=== PATIENT | male | born 1960 | race Caucasian/White ===

== ENCOUNTER 2016-07-01 05:13 | Emergency (ER) | payer MEDICARE, OTHER ==
[~2016-07-01] VITALS: Ht 170.2 cm; Wt 76.7 kg
[2016-07-01] MEDS ORDERED: [UNRECOGNIZED DRUG - OTHER] PO (05:32)
[2016-07-01 05:45] VITALS: BP 141/90
[2016-07-01] MEDS ORDERED: TRAMADOL HCL50 MG ORAL (06:28)
[2016-07-01] MEDS ORDERED: IBUPROFEN600 MG ORAL (06:28)
[2016-07-01 06:35] VITALS: BP 141/90
--- NOTE | 2016-07-01 22:04 | Emergency Room Report ---
History of Present Illness General Chief Complaint: Pain Source: Patient Present Illness HPI Patient presents with 2 days of R knee pain. He denies any recent trauma. Medial knee. No swelling. No fever or rash. No warmth. No calf tenderness. Pain 8/10, constant, not radiating. He took 800 mg motrin X 2 in past 2 days, last this AM but states minimal help. Patient has had recent falls with head injury. He also was recently (several months ago) treated for an infection in the lower leg (screw into ? tibia). Hospitalized for IV antibiotics. He states x-rays done at that time. Infection has healed and is not tender or bothering him. Review of prior visits reveal R leg pain 2006 (chart unavailable). Supposed to fly to [place] this AM as family are ill there. Allergies: Coded Allergies: No Known Allergies (Unverified , 07/01/16) Patient History Past Medical History: see triage record Social History: Denies: alcohol use, smoking Reviewed Nursing Documentation: PMH: Agreed, PSxH: Agreed Review of Systems All Other Systems: negative except mentioned in HPI Physical Exam Vital Signs Date Time Temp Pulse Resp B/P Pulse Ox O2 Delivery O2 Flow Rate FiO2 07/01/16 05:25 97.3 73 16 141/90 99 Room Air Sp02 EP Interpretation: reviewed, normal General Appearance: well appearing, no apparent distress Head: normocephalic, atraumatic Eyes: bilateral eye PERRL, bilateral eye normal inspection ENT: hearing grossly normal, normal voice Neck: full range of motion, supple Respiratory: no respiratory distress, speaking full sentences Cardiovascular #2: 2+ dorsalis pedis (R) Musculoskeletal: digits/nails normal, gait/station normal, no calf tenderness, decreased range of mation - flexion. Able to stand and sit without difficulty, other - no effusion, + medial meniscus tenderness with minimal laxity. Drawer negative. Applies, slight tenderness medially. Neurologic: alert, grossly normal Psychiatric: mood/affect normal Reflexes: 2+ knee (R), 2+ knee (L) Skin: no rash Medical Decision Making Diagnostic Impression: Primary Impression: Injury of meniscus of knee Qualified Codes: S83.91XA - Sprain of unspecified site of right knee, initial encounter ER Course Patient presents with R knee pain. Ddx: strain, meniscus injury, occult fracture. Xrays indicated and patient will be given tylenol (as driving). Xrays unremarkable. Greg applied - good position/tension with some improvement. Neurovasc normal checked by me. Patient stable for outpatient observation and treatment. Other X-Ray Diagnostic Results Other X-Ray Diagnostic Results : X-Ray Ordered: R knee EP Interpretation: Yes Findings: no fractures, no dislocation, no soft tissue swelling Number of Views: 3 Last Vital Signs Date Time Temp Pulse Resp B/P Pulse Ox O2 Delivery O2 Flow Rate FiO2 07/01/16 06:35 97.3 78 16 141/90 99 Room Air Status: improved Disposition: HOME, SELF-CARE Condition: Improved Scripts Tramadol Hcl* (ULTRAM*) 50 Mg Tablet 50 MG ORAL Q6H Y for For Pain, #6 TAB 0 Refills Prov: Sukh Robledo M.D. 07/01/16 Ibuprofen* (MOTRIN*) 600 Mg Tablet 600 MG ORAL Q6H Y for For Pain, #20 TAB Prov: Sukh Robledo M.D. 07/01/16 Referrals: NON PHYSICIAN (PCP) Patient Instructions: Knee Pain, Meniscus Injury, RICE for Routine Care of Injuries Additional Instructions: You might need an MRI. Physical therapy can help. OK to take tylenol also. You cannot fly in an airplane today. Sukh Robledo M.D. Jul 01, 2016 22:04
--- NOTE | 2016-07-02 09:10 | Diagnostic Imaging Report ---
Indication: PAIN Technique: 3 views of the right knee Comparison: None Findings:No acute fractures. No dislocations. There is a small amount of degenerative proliferative change of the patella. Impression:No acute process This agrees with the preliminary interpretation provided by the emergency room physician
== END 2016-07-01 06:35 | disposition home or self-care (01) ==
LOC: EMR 05:39
DX: S83.91XA Sprain of unspecified site of right knee, initial encounter (principal); X58.XXXA Exposure to other specified factors, initial encounter; Y92.9 Unspecified place or not applicable; Y99.8 Other external cause status
CPT/HCPCS: 99284

== ENCOUNTER 2016-10-20 00:06 | Emergency (ER) | payer MEDICARE, OTHER ==
[~2016-10-20] VITALS: Ht 172.7 cm; Wt 74.8 kg
[~2016-10-20 00:06] MED LIST: IBUPROFEN600 MG ORAL; TRAMADOL HCL50 MG ORAL; [UNRECOGNIZED DRUG - OTHER] PO
[2016-10-20 00:20] VITALS: BP 123/59
--- NOTE | 2016-10-20 00:25 | Emergency Room Report ---
History of Present Illness General Chief Complaint: Head Injury Source: Patient Present Illness HPI The patient presents after an injury at 4 PM. He stood in a clost and hit the top of his head on a pipe. He fell down due to the blow at that time. There was no loss of consciousness. He had a severe concussion in January and is concerned because he feels dizzy and somewhat altered at this time. He took Motrin 800 mg before coming to the hospital. Patient is deaf. Patient was seen and Jul 01 for meniscal tear. At that time he described that he had a head injury previously with prolonged post-concussive syndrome. No fevers, NVD. No neck, back or extremity pain. No dysuria. Has to travel again to [place] soon. Stress over family issues. Allergies: Coded Allergies: No Known Allergies (Unverified , 07/01/16) Patient History Past Medical History: see triage record Social History: Denies: smoking Social History Narrative family in [place] Reviewed Nursing Documentation: PMH: Agreed, PSxH: Agreed Review of Systems All Other Systems: negative except mentioned in HPI Physical Exam Vital Signs Date Time Temp Pulse Resp B/P Pulse Ox O2 Delivery O2 Flow Rate FiO2 10/20/16 00:11 98.1 67 16 123/75 97 Room Air Sp02 EP Interpretation: reviewed, normal General Appearance: well appearing, no apparent distress, GCS 15 Head: normocephalic, other - tender top of head Eyes: bilateral eye EOMI, bilateral eye PERRL, bilateral eye normal inspection ENT: moist mucus membranes Neck: full range of motion, supple, no bony tend Respiratory: lungs clear, normal breath sounds Cardiovascular #1: regular rate, rhythm Cardiovascular #2: 2+ radial (R) Gastrointestinal: normal inspection, normal bowel sounds, non tender, no mass, non-distended Musculoskeletal: back normal, gait/station normal, normal range of motion Neurologic: alert, oriented x3, director field services III-XII nml as tested - except for hearning , motor strength/tone normal, DTRs symmetric, sensory intact, cerebellar normal , normal gait, speech normal, other - deaf Psychiatric: mood/affect normal Skin: normal inspection, warm/dry Medical Decision Making Diagnostic Impression: Primary Impression: Acute head injury Qualified Codes: S09.90XA - Unspecified injury of head, initial encounter ER Course The patient presents after head injury. He suffered a fairly significant concussive injury last year in January. His neurologic exam is normal except for deafness which is chronic. CT head is indicated. CT normal. Repeat neuro unchanged. Patient stable for outpatient observation and treatment. CT/MRI/US Diagnostic Results CT/MRI/US Diagnostic Results : Imaging Test Ordered: head Impression nl brain, bones and ST. Last Vital Signs Date Time Temp Pulse Resp B/P Pulse Ox O2 Delivery O2 Flow Rate FiO2 10/20/16 02:25 98.4 61 18 113/70 100 Room Air Status: improved Disposition: HOME, SELF-CARE Condition: Stable Sukh Robledo M.D. October 20, 2016 00:25
[2016-10-20 02:25] VITALS: BP 113/70
--- NOTE | 2016-10-22 09:19 | Diagnostic Imaging Report ---
Indication: Head trauma. Headache Technique: Contiguous 5 mm thick transaxial imaging of the head obtained in a Siemens Sensation [address] scanner. Soft tissue and bone windows generated. Total Dose length Product (DLP): [address] Dose Index Volume (CTDIvol): 70.38 mGy Comparison: none Findings: The size and configuration of the cortical sulci, basal cisterns, and ventricles are within normal limits for age. There is no mass effect, midline shift, or edema identified. There is no evidence of acute hemorrhage or abnormal intra-axial or extra-axial fluid collections. The bones and soft tissues are unremarkable. Impression: No mass effect, edema or acute bleed. The CT scanner at [facility] is accredited by the [employer] and the scans are performed using dose optimization techniques as appropriate to a performed exam including Automatic Exposure control.
== END 2016-10-20 02:25 | disposition home or self-care (01) ==
LOC: EMR 00:40
DX: S09.90XA Unspecified injury of head, initial encounter (principal); W22.8XXA Striking against or struck by other objects, initial encounter; Y93.9 Activity, unspecified; Y99.9 Unspecified external cause status; H91.90 Unspecified hearing loss, unspecified ear
CPT/HCPCS: 70450; 99284

== ENCOUNTER 2016-10-24 16:50 | Emergency (ER) | payer MEDICARE, OTHER ==
[~2016-10-24] VITALS: Ht 172.7 cm; Wt 74.8 kg
[2016-10-24 17:24] VITALS: BP 124/66
[2016-10-24 17:44] LABS: BASOPHILS % (AUTO) 2.5 % (0.0-2.0); EOSINOPHILS % (AUTO) 13.5 % (0.0-3.0); LYMPHOCYTES % (AUTO) 44.9 % (20.0-45.0); MEAN CORPUSCULAR HEMOGLOBIN 32.1 PG (27.0-31.0); MEAN CORPUSCULAR HGB CONC 35.9 G/DL (32.0-36.0); MEAN CORPUSCULAR VOLUME 89 FL (80-99); MEAN PLATELET VOLUME 6.7 FL (6.5-10.1); MONOCYTES % (AUTO) 13.8 % (1.0-10.0); NEUTROPHILS % (AUTO) 25.4 % (45.0-75.0); PLATELET COUNT 249 K/UL (150-450); RED BLOOD COUNT 4.14 M/UL (4.70-6.10); WHITE BLOOD COUNT 5.8 K/UL (4.8-10.8)
[2016-10-24 17:55] LABS: ACETAMINOPHEN < 10 ug/mL (10-30); ALANINE AMINOTRANSFERASE 30 U/L (3-41); ALBUMIN/GLOBULIN RATIO 1.1 (1.0-2.7); ALCOHOL < 10 mg/dL; ANION GAP 16 (5-15); ASPARTATE AMINO TRANSFERASE 33 U/L (5-40); CALCIUM 9.2 mg/dL (8.6-10.2); CARBON DIOXIDE 26 mEQ/L (20-30); CHLORIDE 98 mEQ/L (98-107); CREATININE 0.8 mg/dL (0.7-1.2); GLOMERULAR FILTRATION RATE > 60 mL/min (>60); HEMOLYSIS 3; POTASSIUM 4.1 mEQ/L (3.4-4.9); SODIUM 140 mEQ/L (135-145); TOTAL PROTEIN 7.8 g/dL (6.6-8.7); TROPONIN I < 0.30 ng/mL (<=0.30)
[2016-10-24] MEDS ORDERED: IBUPROFEN600 MG ORAL (18:29)
[2016-10-24 18:46] VITALS: BP 142/83
[2016-10-24 18:50] VITALS: BP 142/83
--- NOTE | 2016-10-25 09:39 | Diagnostic Imaging Report ---
Indication: Altered mental status Technique: Contiguous 5 mm thick transaxial imaging of the head obtained in a Siemens Sensation [address] scanner. Soft tissue and bone windows generated. Total Dose length Product (DLP): [address] Dose Index Volume (CTDIvol): 70.38 mGy Comparison: 10/20/16 Findings: The size and configuration of the cortical sulci, basal cisterns, and ventricles are within normal limits for age. There is no mass effect, midline shift, or edema identified. There is no evidence of acute hemorrhage or abnormal intra-axial or extra-axial fluid collections. The bones and soft tissues are unremarkable. Impression: No mass effect, edema or acute bleed. The CT scanner at [facility] is accredited by the [employer] and the scans are performed using dose optimization techniques as appropriate to a performed exam including Automatic Exposure control.
--- NOTE | 2016-10-25 14:11 | Emergency Room Report ---
History of Present Illness General Chief Complaint: General Complaint Source: Patient, Medical Record Present Illness HPI 56-year-old male presents ED for evaluation. Remained states that patient appears more lethargic than usual x1 day. Noticed some slurred speech today. Patient states the last 3 days his his had multiple times. States that they are moving and during the process of moving his head and multiple objects. No LOC. Patient was seen here a few days ago for similar presentation. Patient also appeared lethargic at the time. Patient had CT head which was unremarkable. Patient denies any drug use. Patient notes history of HIV and states he is compliant with his medications. Denies any photophobia, blurry vision. Denies nausea or vomiting. Denies chest pain or shortness of breath. No other aggravating or relieving factors. Denies any other associated symptoms Allergies: Coded Allergies: No Known Allergies (Unverified , 07/01/16) Patient History Past Medical History: HIV Past Surgical History: none Pertinent Family History: none Social History: Denies: alcohol use, drug use, smoking Immunizations: UTD Reviewed Nursing Documentation: PMH: Agreed, PSxH: Agreed Nursing Documentation-PMH Past Medical History: No History, Except For Review of Systems All Other Systems: negative except mentioned in HPI Physical Exam Vital Signs Date Time Temp Pulse Resp B/P Pulse Ox O2 Delivery O2 Flow Rate FiO2 10/24/16 16:53 98.1 67 17 131/76 98 Room Air Sp02 EP Interpretation: reviewed, normal General Appearance: no apparent distress, alert, GCS 15, non-toxic, lethargic Head: normocephalic, atraumatic Eyes: bilateral eye PERRL, bilateral eye normal inspection ENT: hearing grossly normal, normal pharynx, no angioedema, normal voice Neck: full range of motion, supple/symm/no masses Respiratory: chest non-tender, lungs clear, normal breath sounds, speaking full sentences Cardiovascular #1: regular rate, rhythm, no edema Cardiovascular #2: 2+ carotid (R), 2+ carotid (L), 2+ radial (R), 2+ radial (L) , 2+ dorsalis pedis (R), 2+ dorsalis pedis (L) Gastrointestinal: normal bowel sounds, non tender, soft, non-distended, no guarding, no rebound Rectal: deferred Genitourinary: normal inspection, no CVA tenderness Musculoskeletal: back normal, gait/station normal, normal range of motion, non- tender Neurologic: alert, oriented x3, responsive, motor strength/tone normal, sensory intact, normal gait, speech normal Psychiatric: judgement/insight normal, mood/affect normal, no suicidal/ homicidal ideation, other - lethargic Reflexes: 3+ bicep (R), 3+ bicep (L), 3+ tricep (R), 3+ tricep (L), 3+ knee (R) , 3+ knee (L) Skin: normal color, no rash, warm/dry, well hydrated Lymphatic: no adenopathy Medical Decision Making Diagnostic Impression: Primary Impression: Acute head injury Qualified Codes: S09.90XA - Unspecified injury of head, initial encounter ER Course Hospital Course 56-year-old M presents to ED with altered mental status. slurred speech as per roomate. Multiple head injuries recently Differential diagnoses include: Psychosis, EtOH, drug abuse, concussion, intracranial injury Clinical course patient placed on stretcher. On court monitor. After initial history and physical ordered labs, IV fluids, CT brain. Labs reviewed-electrolytes okay, no leukocytosis, hemoglobin/hematocrit stable, tox panel + for amphetamines CT brain shows no acute pathology Patient has no focal neurological deficits. No evidence suggesting of CVA. Blood pressure normal. Likely postconcussive syndrome given multiple head injuries Reassurance given to the patient i. I feel this is a highly complex case requiring extensive working including EKG/Rhythm strip, Xray/CT/US, Blood/urine lab work, repeat exams while in ED, and administration of strong opiates/narcotics for pain control, admission to hospital or close patient follow up. Diagnosis -acute head injury Stable and discharged to home. Followup with PMD. Return to ED if symptoms recur or worsen Labs Test 10/24/16 17:20 10/24/16 17:25 White Blood Count 5.8 K/UL (4.8-10.8) Red Blood Count 4.14 M/UL (4.70-6.10) Hemoglobin 13.3 G/DL (14.2-18.0) Hematocrit 37.0 % (42.0-52.0) Mean Corpuscular Volume 89 FL (80-99) Mean Corpuscular Hemoglobin 32.1 PG (27.0-31.0) Mean Corpuscular Hemoglobin Concent 35.9 G/DL (32.0-36.0) Red Cell Distribution Width 12.0 % (11.6-14.8) Platelet Count 249 K/UL (150-450) Mean Platelet Volume 6.7 FL (6.5-10.1) Neutrophils (%) (Auto) 25.4 % (45.0-75.0) Lymphocytes (%) (Auto) 44.9 % (20.0-45.0) Monocytes (%) (Auto) 13.8 % (1.0-10.0) Eosinophils (%) (Auto) 13.5 % (0.0-3.0) Basophils (%) (Auto) 2.5 % (0.0-2.0) Sodium Level 140 mEQ/L (135-145) Potassium Level 4.1 mEQ/L (3.4-4.9) Chloride Level 98 mEQ/L (98-107) Carbon Dioxide Level 26 mEQ/L (20-30) Anion Gap 16 (5-15) Blood Urea Nitrogen 17 mg/dL (7-23) Creatinine 0.8 mg/dL (0.7-1.2) Estimat Glomerular Filtration Rate > 60 mL/min (>60) Glucose Level 117 mg/dL (74-106) Calcium Level 9.2 mg/dL (8.6-10.2) Total Bilirubin 0.6 mg/dL (0.0-1.2) Aspartate Amino Transf (AST/SGOT) 33 U/L (5-40) Alanine Aminotransferase (ALT/SGPT) 30 U/L (3-41) Alkaline Phosphatase 63 U/L (40-129) Total Creatine Kinase 242 U/L (38-174) Troponin I < 0.30 ng/mL (<=0.30) Total Protein 7.8 g/dL (6.6-8.7) Albumin 4.2 g/dL (3.5-5.2) Globulin 3.6 g/dL Albumin/Globulin Ratio 1.1 (1.0-2.7) Salicylates Level < 1 mg/dL (10-30) Acetaminophen Level < 10 ug/mL (10-30) Serum Alcohol < 10 mg/dL Urine Opiates Screen Negative (NEGATIVE) Urine Barbiturates Screen Negative (NEGATIVE) Phencyclidine (PCP) Screen Negative (NEGATIVE) Urine Amphetamines Screen Positive (NEGATIVE) Urine Benzodiazepines Screen Negative (NEGATIVE) Urine Cocaine Screen Negative (NEGATIVE) Urine Marijuana (THC) Screen Negative (NEGATIVE) CT/MRI/US Diagnostic Results CT/MRI/US Diagnostic Results : Imaging Test Ordered: CT head Impression no acute process Last Vital Signs Date Time Temp Pulse Resp B/P Pulse Ox O2 Delivery O2 Flow Rate FiO2 10/24/16 18:50 98.1 62 17 142/83 99 Room Air Status: improved Disposition: HOME, SELF-CARE Condition: Stable Scripts Ibuprofen* (MOTRIN*) 600 Mg Tablet 600 MG ORAL Q8H Y for For Pain, #30 TAB 0 Refills Prov: EAGLE OSORIO M.D. 10/24/16 Referrals: NON PHYSICIAN (PCP) Patient Instructions: Concussion, Adult, [id number] EAGLE OSORIO M.D. Oct 25, 2016 14:11
== END 2016-10-24 18:52 | disposition home or self-care (01) ==
LOC: EMR 17:10
DX: S09.8XXA Other specified injuries of head, initial encounter (principal); X58.XXXA Exposure to other specified factors, initial encounter; Y92.89 Other specified places as the place of occurrence of the external cause; R41.82 Altered mental status, unspecified; R47.81 Slurred speech
CPT/HCPCS: 36415; 70450; 80053; 80300; 82550; 84484; 85025; 96374; 99284; G0480; 80329

== ENCOUNTER 2017-08-08 17:05 | Inpatient (IN) | payer MEDICARE, OTHER ==
[~2017-08-08] VITALS: Ht 172.7 cm; Wt 71.2 kg
[2017-08-08] MEDS ORDERED: LORazepam 1mg tab ORAL ONE (17:45)
--- NOTE | 2017-08-08 17:52 | Emergency Room Report ---
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 He denies hemoptysis syncope chest pain but does report he has chest wall and abdominal wall pain when he coughs but not at rest. He reports he can care of the cough and he also reports no vomiting diarrhea or urinary complaints. Allergies: Coded Allergies: No Known Allergies (Unverified , 07/01/16) Patient History Past Medical History: see triage record Reviewed Nursing Documentation: PMH: Agreed, PSxH: Agreed Nursing Documentation-PMH Past Medical History: No History, Except For Review of Systems All Other Systems: negative except mentioned in HPI Physical Exam Vital Signs Date Time Temp Pulse Resp B/P (MAP) Pulse Ox O2 Delivery O2 Flow Rate FiO2 08/08/17 17:15 98.9 134 26 123/73 96 Room Air 99.0 Sp02 EP Interpretation: reviewed, normal General Appearance: no apparent distress, alert, non-toxic Head: normocephalic Eyes: bilateral eye normal inspection, bilateral eye PERRL, bilateral eye EOMI ENT: normal ENT inspection, hearing grossly normal, normal pharynx, no angioedema, normal voice, moist mucus membranes Neck: normal inspection, full range of motion, supple, supple/symm/no masses Respiratory: chest non-tender, lungs clear, normal breath sounds, chest symmetrical, palpation of chest normal Cardiovascular #1: normal peripheral pulses, regular rate, rhythm, no edema, no gallop, no JVD, no murmur, no rub, tachycardia Cardiovascular #2: 2+ radial (R), 2+ radial (L) Gastrointestinal: normal inspection, non tender, soft, no mass, no guarding, no rebound Rectal: deferred Genitourinary: normal inspection, no CVA tenderness Musculoskeletal: back normal, gait/station normal, normal range of motion, non- tender, no calf tenderness Neurologic: alert, responsive, tamale maker III-XII nml as tested, motor strength/tone normal, sensory intact, speech normal Psychiatric: judgement/insight normal, memory normal, mood/affect normal, no suicidal/homicidal ideation, anxious Skin: normal color, no rash, warm/dry, normal turgor Lymphatic: no adenopathy Medical Decision Making Reaction to Intervention: Improved Diagnostic Impression: Primary Impression: UTI (urinary tract infection) Additional Impression: Pneumonia ER Course Patient was treated for possible sepsis immediately upon arrival, antibiotics were started within 3 hours, he initially got 30 mL/kg NSS IV fluids, brought blood cultures, lactic acid, and then gram-negative coverage as well as azithromycin when he was found to have left basilar infiltrate. He also had evidence of a urinary tract infection and likely left-sided pyelonephritis. His fever and tachycardia improved with Tylenol. I discussed the case with and admitted him for infection. EKG Diagnostic Results EKG Time: 18:08 EP Interpretation: no st-t change, no twi Rate: tachycardiac Rhythm: NSR ST Segments: no acute changes ASA given to the pt in ED: No Rhythm Strip Diag. Results Rhythm Strip Time: 21:12 EP Interpretation: yes Rate: 85 Rhythm: NSR, no PVC's Chest X-Ray Diagnostic Results Chest X-Ray Diagnostic Results : Chest X-Ray Ordered: Yes # of Views/Limited/Complete: 1 View Indication: Other EP Interpretation: Yes PA Xray: Interpretation reviewed Interpretation: no pneumothorax, no acute cardiopulmonary disease, other - + L basilar consolidation and effusion Impression: Other - PNA Electronically Signed by: Lias Ortiz MD CT/MRI/US Diagnostic Results CT/MRI/US Diagnostic Results : Imaging Test Ordered: ct ab/pelvis Impression CT abdomen and pelvis showed no evidence of any hydronephrosis or hydroureter, no evidence of any ureterolithiasis, the patient did have stranding around the left kidney no andrews off collection to suggest abscess.findings consistent with pyelonephritis Last Vital Signs Date Time Temp Pulse Resp B/P (MAP) Pulse Ox O2 Delivery O2 Flow Rate FiO2 08/08/17 17:15 98.9 134 26 123/73 96 Room Air 99.0 Status: improved Disposition: ADMITTED INPATIENT Condition: Serious Signed Out To: LISA Chung M.D Aug 08, 2017 17:52
[2017-08-08 18:00] VITALS: BP 114/78
[2017-08-08] MEDS: guaiFENesin DM 100mg/5ml ORAL PRN (18:02)
[2017-08-08 18:29] LABS: HEMATOCRIT 42.3 % (42.0-52.0); HEMOGLOBIN 14.4 G/DL (14.2-18.0); MEAN CORPUSCULAR VOLUME 90 FL (80-99); PLATELET COUNT 292 K/UL (150-450); RED BLOOD COUNT 4.69 M/UL (4.70-6.10); RED CELL DISTRIBUTION WIDTH 12.6 % (11.6-14.8); WHITE BLOOD COUNT 17.6 K/UL (4.8-10.8)
[2017-08-08 18:30] LABS: APPEARANCE,URINE CLOUDY; BILIRUBIN, URINE 2+ (NEGATIVE); GLUCOSE, URINE (UA) NEGATIVE (NEGATIVE); KETONES,URINE 1+ (NEGATIVE); LEUKOCYTE ESTERASE ,URINE 1+ (NEGATIVE); NITRITE,URINE POSITIVE (NEGATIVE); PH,URINE 5 (4.5-8.0); PROTEIN,URINE 3+ (NEGATIVE); UROBILINOGEN,URINE 8 MG/DL (0.0-1.0)
[2017-08-08 18:32] LABS: BASOPHILS % (AUTO) 0.2 % (0.0-2.0); LYMPHOCYTES % (AUTO) 5.6 % (20.0-45.0); MONOCYTES % (AUTO) 5.6 % (1.0-10.0); NEUTROPHILS % (AUTO) 88.5 % (45.0-75.0)
[2017-08-08 18:34] LABS: COLOR,URINE AMBER
[2017-08-08 18:39] LABS: ANION GAP 10 mmol/L (5-15); BLOOD UREA NITROGEN 29 mg/dL (7-18); CALCIUM 8.8 MG/DL (8.5-10.1); CARBON DIOXIDE 27 MMOL/L (21-32); CHLORIDE 95 MMOL/L (98-107); CREATININE 1.4 MG/DL (0.55-1.30); POTASSIUM 3.3 MMOL/L (3.5-5.1); SODIUM 132 MMOL/L (136-145)
[2017-08-08 18:52] VITALS: BP 121/74
[2017-08-08 18:52] LABS: ALANINE AMINOTRANSFERASE 28 U/L (12-78); ALBUMIN 2.8 G/DL (3.4-5.0); ALBUMIN/GLOBULIN RATIO 0.5 (1.0-2.7); ALKALINE PHOSPHATASE 65 U/L (46-116); ASPARTATE AMINO TRANSFERASE 29 U/L (15-37); BILIRUBIN,TOTAL 1.6 MG/DL (0.2-1.0); CKMB 0.7 NG/ML (0.0-3.6)
[2017-08-08 18:56] LABS: BILIRUBIN,DIRECT 0.5 MG/DL (0.0-0.3)
[2017-08-08] MEDS ORDERED: Acetaminophen 500mg (ES) tab ORAL ONE (19:00)
[2017-08-08] MEDS ORDERED: cefTRIAXone 1 GM in NS 55 ML IVPB ONE (19:00)
[2017-08-08 20:07] VITALS: BP 100/68
[2017-08-08] MEDS ORDERED: Azithromycin 250mg tab ORAL ONE (20:30)
[2017-08-08 21:48] VITALS: BP 97/63
--- NOTE | 2017-08-08 21:54 | Infectious Diseases Prog Note ---
Assessment/Plan Problems: (1) Acute pyelonephritis Assessment & Plan: will send urine culture and start cefepime empiric coverage for now (2) CAP (community acquired pneumonia) Assessment & Plan: will start cefepime and zithromax empiric coverage , and send sputum culture (3) Sepsis Assessment & Plan: due to the above, on antibiotics, pending blood culture (4) HIV (human immunodeficiency virus infection) Assessment & Plan: will check his viral load ad CD4 conts, resume home hiv meds Subjective Allergies: Coded Allergies: No Known Allergies (Unverified , 07/01/16) Objective Vital Signs Last 24 Hour Vital Signs Date Time Temp Pulse Resp B/P (MAP) Pulse Ox O2 Delivery O2 Flow Rate FiO2 08/08/17 21:48 99.3 83 21 97/63 97 Room Air 99.3 08/08/17 20:07 98.5 97 22 100/68 97 Room Air 98.5 08/08/17 20:07 98.5 08/08/17 19:11 102.2 08/08/17 18:52 102.2 110 20 121/74 99 Room Air 102.2 08/08/17 18:00 98.6 115 26 114/78 99 Room Air 98.6 08/08/17 17:45 124 22 Room Air 08/08/17 17:15 98.9 134 26 123/73 96 Room Air 99.0 Height (Feet): 5 Height (Inches): 8.00 Weight (Pounds): 157 Microbiology Date/Time Source Procedure Growth Status 08/08/17 18:05 Nasal Nares Influenza Types A,B Antigen (KATHI) - Final Complete Laboratory Tests Test 08/08/17 18:05 White Blood Count 17.6 K/UL (4.8-10.8) H Red Blood Count 4.69 M/UL (4.70-6.10) L Hemoglobin 14.4 G/DL (14.2-18.0) Hematocrit 42.3 % (42.0-52.0) Mean Corpuscular Volume 90 FL (80-99) Mean Corpuscular Hemoglobin 30.7 PG (27.0-31.0) Mean Corpuscular Hemoglobin Concent 34.1 G/DL (32.0-36.0) Red Cell Distribution Width 12.6 % (11.6-14.8) Platelet Count 292 K/UL (150-450) Mean Platelet Volume 7.1 FL (6.5-10.1) Neutrophils (%) (Auto) 88.5 % (45.0-75.0) H Lymphocytes (%) (Auto) 5.6 % (20.0-45.0) L Monocytes (%) (Auto) 5.6 % (1.0-10.0) Eosinophils (%) (Auto) 0.0 % (0.0-3.0) Basophils (%) (Auto) 0.2 % (0.0-2.0) Urine Color [place] Urine Appearance Cloudy Urine pH 5 (4.5-8.0) Urine Specific [place] 1.020 (1.005-1.035) Urine Protein 3+ (NEGATIVE) H Urine Glucose (UA) Negative (NEGATIVE) Urine Ketones 1+ (NEGATIVE) H Urine Occult Blood 4+ (NEGATIVE) H Urine Nitrite Positive (NEGATIVE) H Urine Bilirubin 2+ (NEGATIVE) H Urine Ictotest Positive Urine Urobilinogen 8 MG/DL (0.0-1.0) H Urine Leukocyte Esterase 1+ (NEGATIVE) H Urine RBC 2-4 /HPF (0 - 0) H Urine WBC 5-10 /HPF (0 - 0) H Urine Squamous Epithelial Cells None /LPF (NONE/OCC) Urine Bacteria Many /HPF (NONE) H Urine Granular Casts 15-20 /LPF (NONE) H Sodium Level 132 MMOL/L (136-145) L Potassium Level 3.3 MMOL/L (3.5-5.1) L Chloride Level 95 MMOL/L (98-107) L Carbon Dioxide Level 27 MMOL/L (21-32) Anion Gap 10 mmol/L (5-15) Blood Urea Nitrogen 29 mg/dL (7-18) H Creatinine 1.4 MG/DL (0.55-1.30) H Estimat Glomerular Filtration Rate 52.1 mL/min (>60) Glucose Level 148 MG/DL (74-106) H Lactic Acid Level 4.20 mmol/L (0.66-2.22) H Calcium Level 8.8 MG/DL (8.5-10.1) Total Bilirubin 1.6 MG/DL (0.2-1.0) H Direct Bilirubin 0.5 MG/DL (0.0-0.3) H Aspartate Amino Transf (AST/SGOT) 29 U/L (15-37) Alanine Aminotransferase (ALT/SGPT) 28 U/L (12-78) Alkaline Phosphatase 65 U/L (46-116) Creatine Kinase MB 0.7 NG/ML (0.0-3.6) Troponin I 0.000 ng/mL (0.000-0.056) Total Protein 8.3 G/DL (6.4-8.2) H Albumin 2.8 G/DL (3.4-5.0) L Globulin 5.5 g/dL Albumin/Globulin Ratio 0.5 (1.0-2.7) L Lipase 49 U/L (73-393) L Current Medications Medications (Trade) Dose Ordered Sig/Bhavani Route PRN Reason Start Time Stop Time Status Last Admin Dose Admin Guaifenesin/ Dextromethorphan (Robitussin DM) 10 ml Q4H PRN ORAL For Cough 08/08/17 18:00 09/07/17 17:59 08/08/17 18:02 Sodium Chloride 1,000 ml @ 999 mls/hr Q1H1M ONCE IV 08/08/17 21:09 08/08/17 22:09 08/08/17 21:43 Marvin Bullock M.D. Aug 08, 2017 21:54
[2017-08-08] MEDS: Cefepime HCl 2 GM in NS 55 ML IVPB SCH (23:55)
[2017-08-09] VITALS: BP 115/71
[2017-08-09] MEDS ORDERED: Albuterol/Ipratropium 3ml neb HHN PRN (01:00)
[2017-08-09] MEDS ORDERED: HYDROcodone/Acetamin 10/325 tab ORAL PRN (01:00)
[2017-08-09] MEDS ORDERED: Morphine Sulfate 2mg/ml Inj IVP PRN (01:00)
[2017-08-09 04:00] VITALS: BP 107/68
[2017-08-09 07:21] LABS: HEMATOCRIT 34.6 % (42.0-52.0); HEMOGLOBIN 11.9 G/DL (14.2-18.0); MEAN CORPUSCULAR VOLUME 90 FL (80-99); PLATELET COUNT 276 K/UL (150-450); RED BLOOD COUNT 3.85 M/UL (4.70-6.10); RED CELL DISTRIBUTION WIDTH 12.7 % (11.6-14.8)
[2017-08-09 07:30] LABS: WHITE BLOOD COUNT 23.4 K/UL (4.8-10.8)
[2017-08-09] MEDS ORDERED: Flu Vaccine Quadrivalent 0.5ml IM ONE (07:30)
[2017-08-09 07:40] LABS: ALANINE AMINOTRANSFERASE 28 U/L (12-78); ALBUMIN 2.2 G/DL (3.4-5.0); ALBUMIN/GLOBULIN RATIO 0.5 (1.0-2.7); ALKALINE PHOSPHATASE 58 U/L (46-116); ANION GAP 10 mmol/L (5-15); ASPARTATE AMINO TRANSFERASE 32 U/L (15-37); BILIRUBIN,TOTAL 1.3 MG/DL (0.2-1.0); BLOOD UREA NITROGEN 27 mg/dL (7-18); CALCIUM 7.6 MG/DL (8.5-10.1); CARBON DIOXIDE 23 MMOL/L (21-32); CHLORIDE 102 MMOL/L (98-107); POTASSIUM 3.4 MMOL/L (3.5-5.1); SODIUM 135 MMOL/L (136-145)
[2017-08-09 07:41] LABS: BILIRUBIN,DIRECT 0.4 MG/DL (0.0-0.3)
[2017-08-09 08:00] VITALS: BP 109/70
[2017-08-09] MEDS: Heparin 5000 units/ml inj SUBQ SCH ×2 (08:20→21:54)
--- NOTE | 2017-08-09 09:15 | Diagnostic Imaging Report ---
Indication: Cough Technique: XRAY Chest 1v Comparison: None Findings: Dense left basilar opacity and small left pleural effusion. Left heart border is obscured. Heart size is likely within normal limits. Right lung is grossly clear. There is no pneumothorax. No acute osseous abnormality is seen. Surgical clips noted in the left upper quadrant. Impression: Dense left basilar opacification and layering small left pleural effusion. Findings most likely represent left-sided pneumonia given history of cough. Clinical correlation and radiographic follow-up until resolution is recommended. This corresponds with the preliminary interpretation of the treating ER physician, as documented in the electronic medical record. Study obtained via the emergency department however patient admitted to the hospital at time of dictation of the final report.
--- NOTE | 2017-08-09 09:34 | Diagnostic Imaging Report ---
Indication: Leg pain Technique: CT of the abdomen and pelvis utilizing automated exposure control without intravenous or oral contrast. CT dose: Total DLP 530 mGycm; CTDI vol 10.77 mGy Comparison: None Findings: Please note that evaluation of the abdominal and pelvic viscera is limited without the use of intravenous and oral contrast. Within these limitations, the following observations are made: There are infiltrative and consolidative opacities involving the left lung base including the inferior lingula and left lower lobe with associated small moderate pleural effusion which may be partially loculated. Heart size is within normal limits. Is status post splenectomy. Noncontrast evaluation of the liver, gallbladder, pancreas and adrenal glands is grossly unremarkable. There is nonspecific bilateral perinephric stranding with asymmetric increased stranding on the left. This may related to left-sided infection or some passage of stone. There is to 3 mm punctate nonobstructing stone in the lower pole of the left kidney (series 2 image 49). There is no evidence of hydronephrosis bilaterally. There is a 5 mm hyperdense lesion along the mid/lower pole of the left kidney which is nonspecific but may represent a hemorrhagic or proteinaceous cyst. The bladder is unremarkable in appearance. Prostate appears borderline enlarged. There is no evidence of bowel obstruction. No free intraperitoneal air is identified. No definite evidence of suggest bowel inflammation. There is a small fat-containing umbilical hernia. Some small retroperitoneal lymph nodes are identified, likely reactive in etiology. Abdominal aorta appears normal in caliber. There are degenerative changes of the spine with grade 2 anterolisthesis of L5 on S1 by means of bilateral pars defects at this level. IMPRESSION: Limited exam without intravenous or oral contrast. Within these limitations: * Dense left basilar consolidation with adjacent left-sided pleural effusion which may be partially loculated. Findings raise possibility of basilar pneumonia. * 2 to 3 mm nonobstructing stone in the lower pole left kidney. Asymmetric increased perinephric stranding about the left kidney raising question for recently passed stone or possible pyelonephritis. Correlation with urinalysis recommended. No evidence of hydronephrosis bilaterally. * 5 mm hyperdense lesion along the mid/lower pole the left kidney which may represent a hemorrhagic or proteinaceous cyst. Follow-up renal ultrasound recommended. 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 * Status post splenectomy. This corresponds with the statrad preliminary report. The CT scanner at [facility] is accredited by the [employer] and the scans are performed using protocols designed to limit radiation exposure to as low as reasonably achievable to attain images of sufficient resolution adequate for diagnostic evaluation.
[2017-08-09] MEDS: Cefepime HCl 2 GM in NS 55 ML IVPB SCH ×2 (11:02→23:55)
[2017-08-09 12:00] VITALS: BP 99/58
[2017-08-09] MEDS ORDERED: Vancomycin 1.5 GM/D5W 250ML IVPB ONE (13:00)
--- NOTE | 2017-08-09 14:56 | Infectious Diseases Prog Note ---
Assessment/Plan Problems: (1) Acute pyelonephritis Assessment & Plan: pending urine culture , continue cefepime empiric coverage for now (2) CAP (community acquired pneumonia) Assessment & Plan: continue cefepime and zithromax empiric coverage , will obtain chest CT to evaluate his left pleural effusion and to rule out loculated effusion and send sputum culture (3) Pleural effusion on left Assessment & Plan: due to pneumonia , rule out loculated fluids/empyema , recommend thoracentesis and CT chest for further evaluation (4) Sepsis Assessment & Plan: due to the above, with gram positive cocci in chains, most likely streptococcus spp or enterococcus , will add vancomycin pending blood culture, continue cefepime empirically (5) HIV (human immunodeficiency virus infection) Assessment & Plan: continue triumeq pending his viral load ad CD4 counts Subjective Constitutional: Reports: fatigue, anorexia HEENT: Reports: no symptoms Respiratory: Reports: dry cough Breasts: Reports: no symptoms Cardiovascular: Reports: chest pain Gastrointestinal/Abdominal: Reports: no symptoms Genitourinary: Reports: dysuria Neurologic: Reports: no symptoms Psychiatric: Reports: no symptoms Skin: Reports: no symptoms Endocrine: Reports: no symptoms Hematologic: Reports: no symptoms Musculoskeletal: Reports: no symptoms Allergies: Coded Allergies: No Known Allergies (Unverified , 07/01/16) Objective Vital Signs Last 24 Hour Vital Signs Date Time Temp Pulse Resp B/P (MAP) Pulse Ox O2 Delivery O2 Flow Rate FiO2 08/09/17 12:00 98.8 94 19 99/58 96 98.8 08/09/17 08:00 99.9 97 19 109/70 95 99.9 08/09/17 06:47 92 18 Room Air 21 08/09/17 04:00 99.7 101 18 107/68 94 Room Air 99.7 08/09/17 00:00 98.4 89 16 115/71 95 Room Air 98.4 08/08/17 22:20 99.3 83 21 97/63 97 Room Air 99.3 08/08/17 21:48 99.3 83 21 97/63 97 Room Air 99.3 08/08/17 20:07 98.5 97 22 100/68 97 Room Air 98.5 08/08/17 20:07 98.5 08/08/17 19:11 102.2 08/08/17 18:52 102.2 110 20 121/74 99 Room Air 102.2 08/08/17 18:00 98.6 115 26 114/78 99 Room Air 98.6 08/08/17 17:45 124 22 Room Air 08/08/17 17:15 98.9 134 26 123/73 96 Room Air 99.0 Height (Feet): 5 Height (Inches): 8.00 Weight (Pounds): 157 General Appearance: WD/WN, no acute distress HEENT: normocephalic, atraumatic, anicteric, mucous membranes moist, PERRL, supple, no JVD Respiratory/Chest: chest wall non-tender, no respiratory distress, no accessory muscle use, decreased breath sounds, crackles/rales Cardiovascular: normal peripheral pulses, normal rate, regular rhythm, no gallop/murmur, no JVD Abdomen: normal bowel sounds, soft, non tender, no organomegaly, non distended , no mass, no scars Extremities: no cyanosis, no clubbing Skin: no rash, no lesions, no ulcers Microbiology Date/Time Source Procedure Growth Status 08/08/17 18:16 Blood Blood Culture - Preliminary Gram Positive Cocci Resulted 08/08/17 18:05 Blood Blood Culture - Preliminary Gram Positive Cocci Resulted 08/08/17 18:05 Nasal Nares Influenza Types A,B Antigen (KATHI) - Final Complete 08/08/17 18:05 Urine,Clean Catch Urine Culture - Preliminary Gram Positive Cocci Resulted Laboratory Tests Test 08/08/17 18:05 08/08/17 21:30 08/09/17 07:00 White Blood Count 17.6 K/UL (4.8-10.8) H 23.4 K/UL (4.8-10.8) *H Red Blood Count 4.69 M/UL (4.70-6.10) L 3.85 M/UL (4.70-6.10) L Hemoglobin 14.4 G/DL (14.2-18.0) 11.9 G/DL (14.2-18.0) L Hematocrit 42.3 % (42.0-52.0) 34.6 % (42.0-52.0) L Mean Corpuscular Volume 90 FL (80-99) 90 FL (80-99) Mean Corpuscular Hemoglobin 30.7 PG (27.0-31.0) 30.9 PG (27.0-31.0) Mean Corpuscular Hemoglobin Concent 34.1 G/DL (32.0-36.0) 34.3 G/DL (32.0-36.0) Red Cell Distribution Width 12.6 % (11.6-14.8) 12.7 % (11.6-14.8) Platelet Count 292 K/UL (150-450) 276 K/UL (150-450) Mean Platelet Volume 7.1 FL (6.5-10.1) 7.1 FL (6.5-10.1) Neutrophils (%) (Auto) 88.5 % (45.0-75.0) H % (45.0-75.0) Lymphocytes (%) (Auto) 5.6 % (20.0-45.0) L % (20.0-45.0) Monocytes (%) (Auto) 5.6 % (1.0-10.0) % (1.0-10.0) Eosinophils (%) (Auto) 0.0 % (0.0-3.0) % (0.0-3.0) Basophils (%) (Auto) 0.2 % (0.0-2.0) % (0.0-2.0) Urine Color [place] Urine Appearance Cloudy Urine pH 5 (4.5-8.0) Urine Specific [place] 1.020 (1.005-1.035) Urine Protein 3+ (NEGATIVE) H Urine Glucose (UA) Negative (NEGATIVE) Urine Ketones 1+ (NEGATIVE) H Urine Occult Blood 4+ (NEGATIVE) H Urine Nitrite Positive (NEGATIVE) H Urine Bilirubin 2+ (NEGATIVE) H Urine Ictotest Positive Urine Urobilinogen 8 MG/DL (0.0-1.0) H Urine Leukocyte Esterase 1+ (NEGATIVE) H Urine RBC 2-4 /HPF (0 - 0) H Urine WBC 5-10 /HPF (0 - 0) H Urine Squamous Epithelial Cells None /LPF (NONE/OCC) Urine Bacteria Many /HPF (NONE) H Urine Granular Casts 15-20 /LPF (NONE) H Sodium Level 132 MMOL/L (136-145) L 135 MMOL/L (136-145) L Potassium Level 3.3 MMOL/L (3.5-5.1) L 3.4 MMOL/L (3.5-5.1) L Chloride Level 95 MMOL/L (98-107) L 102 MMOL/L (98-107) Carbon Dioxide Level 27 MMOL/L (21-32) 23 MMOL/L (21-32) Anion Gap 10 mmol/L (5-15) 10 mmol/L (5-15) Blood Urea Nitrogen 29 mg/dL (7-18) H 27 mg/dL (7-18) H Creatinine 1.4 MG/DL (0.55-1.30) H 1.0 MG/DL (0.55-1.30) Estimat Glomerular Filtration Rate 52.1 mL/min (>60) > 60 mL/min (>60) Glucose Level 148 MG/DL (74-106) H 102 MG/DL (74-106) Lactic Acid Level 4.20 mmol/L (0.66-2.22) H 1.20 mmol/L (0.66-2.22) Calcium Level 8.8 MG/DL (8.5-10.1) 7.6 MG/DL (8.5-10.1) L Total Bilirubin 1.6 MG/DL (0.2-1.0) H 1.3 MG/DL (0.2-1.0) H Direct Bilirubin 0.5 MG/DL (0.0-0.3) H 0.4 MG/DL (0.0-0.3) H Aspartate Amino Transf (AST/SGOT) 29 U/L (15-37) 32 U/L (15-37) Alanine Aminotransferase (ALT/SGPT) 28 U/L (12-78) 28 U/L (12-78) Alkaline Phosphatase 65 U/L (46-116) 58 U/L (46-116) Creatine Kinase MB 0.7 NG/ML (0.0-3.6) Troponin I 0.000 ng/mL (0.000-0.056) Total Protein 8.3 G/DL (6.4-8.2) H 6.7 G/DL (6.4-8.2) Albumin 2.8 G/DL (3.4-5.0) L 2.2 G/DL (3.4-5.0) L Globulin 5.5 g/dL 4.5 g/dL Albumin/Globulin Ratio 0.5 (1.0-2.7) L 0.5 (1.0-2.7) L Lipase 49 U/L (73-393) L Differential Total Cells Counted 100 Neutrophils % (Manual) 79 % (45-75) H Lymphocytes % (Manual) 14 % (20-45) L Monocytes % (Manual) 7 % (1-10) Eosinophils % (Manual) 0 % (0-3) Basophils % (Manual) 0 % (0-2) Band Neutrophils 0 % (0-8) Platelet Estimate Adequate Platelet Morphology Normal Red Blood Cell Morphology Normal Current Medications Medications (Trade) Dose Ordered Sig/Bhavani Route PRN Reason Start Time Stop Time Status Last Admin Dose Admin Acetaminophen (Tylenol) 650 mg Q4H PRN ORAL Mild Pain (Pain Scale 1-3) 08/09/17 01:00 09/08/17 00:59 08/09/17 11:02 Acetaminophen/ Hydrocodone Bitart ([place] 10/325) 1 tab Q4H PRN ORAL Breakthrough Pain 08/09/17 01:00 08/16/17 00:59 Albuterol/ Ipratropium (Albuterol/ Ipratropium) 3 ml Q4HR PRN HHN Shortness of Breath 08/09/17 01:00 08/14/17 00:59 Azithromycin 250 mg/Sodium Chloride 275 ml @ 275 mls/hr Q24HRS IV 08/09/17 21:00 08/15/17 21:59 Cefepime HCl 2 gm/ Sodium Chloride 55 ml @ 110 mls/hr Q12H IVPB 08/08/17 23:00 08/15/17 23:59 08/09/17 11:02 Dextrose (Dextrose 50%) STAT PRN IV Hypoglycemia 08/09/17 01:00 09/08/17 00:59 Guaifenesin/ Dextromethorphan (Robitussin DM) 10 ml Q4H PRN ORAL For Cough 08/08/17 18:00 09/07/17 17:59 08/08/17 18:02 Heparin Sodium (Porcine) (Heparin 5000 units/ml) 5,000 units EVERY 12 HOURS SUBQ 08/09/17 09:00 09/08/17 08:59 08/09/17 08:20 Morphine Sulfate (Morphine Sulfate) 2 mg Q4HR PRN IVP Severe Pain (Pain Scale 7-10) 08/09/17 01:00 08/16/17 00:59 08/09/17 01:33 Ondansetron HCl (Zofran) 4 mg Q6H PRN IVP Nausea & Vomiting 08/09/17 01:00 09/08/17 00:59 Vancomycin HCl (Vanco rx to dose) 1 ea DAILY PRN MISC Per rx protocol 08/09/17 11:45 09/08/17 11:44 Vancomycin HCl 1 gm/Dextrose 275 ml @ 183.708 mls/hr Q12HR@0100,1300 IVPB 08/10/17 01:00 08/15/17 00:59 Vancomycin HCl/ Dextrose 250 ml @ 125 mls/hr ONCE ONCE IVPB 08/09/17 13:00 08/09/17 14:59 Marvin Bullock M.D. Aug 09, 2017 14:56
[2017-08-09] MEDS: Vancomycin 1gm/D5W 275ml IVPB SCH ×2 (15:43)
[2017-08-09 16:00] VITALS: BP 95/50
--- NOTE | 2017-08-09 16:45 | Consultation ---
Consult Note Consult Note PCCM CONSULTATION REFERRING PHYSICIAN: Remy Thurman MD REASON FOR CONSULTATION: Pleural effusion & PNA HPI: 57 M non-smoker h/o HIV with unknown CD4 ct and VL pw several weeks of cough congestion and SOB, noted to have a L sided infiltrate and effusion, also UTI, CT AP c/w PN and a loculated effusion L base. Initially started on Cefepime but G+C noted in blood and in urine, Vanco added. WCt on admission 17 now 24. + cough + SOB + subj F + C, no NVDC, no abdominal pain or urinary complaints. PMH: HIV on cART, [place] SHx: No T/E/D FHx: N/C ALL: NKDA Active Scripts Medications Dose Route/Sig Max Daily Dose Days Date Category Motrin* (Ibuprofen) 600 Mg Tablet 600 Mg ORAL Q8H PRN 10/24/16 Rx Ultram* (Tramadol HCl) 50 Mg Tablet 50 Mg ORAL Q6H PRN 07/01/16 Rx Motrin* (Ibuprofen) 600 Mg Tablet 600 Mg ORAL Q6H PRN 07/01/16 Rx [Trumeq 600-300] 1 Tab PO DAILY 07/01/16 Reported Current Medications Medications (Trade) Dose Ordered Sig/Bhavani Route PRN Reason Start Time Stop Time Status Last Admin Dose Admin Acetaminophen (Tylenol) 650 mg Q4H PRN ORAL Mild Pain (Pain Scale 1-3) 08/09/17 01:00 09/08/17 00:59 08/09/17 11:02 Acetaminophen/ Hydrocodone Bitart ([place] 10/325) 1 tab Q4H PRN ORAL Breakthrough Pain 08/09/17 01:00 08/16/17 00:59 Albuterol/ Ipratropium (Albuterol/ Ipratropium) 3 ml Q4HR PRN HHN Shortness of Breath 08/09/17 01:00 08/14/17 00:59 Azithromycin 250 mg/Sodium Chloride 275 ml @ 275 mls/hr Q24HRS IV 08/09/17 21:00 08/15/17 21:59 Cefepime HCl 2 gm/ Sodium Chloride 55 ml @ 110 mls/hr Q12H IVPB 08/08/17 23:00 08/15/17 23:59 08/09/17 11:02 Dextrose (Dextrose 50%) STAT PRN IV Hypoglycemia 08/09/17 01:00 09/08/17 00:59 Guaifenesin/ Dextromethorphan (Robitussin DM) 10 ml Q4H PRN ORAL For Cough 08/08/17 18:00 09/07/17 17:59 08/08/17 18:02 Heparin Sodium (Porcine) (Heparin 5000 units/ml) 5,000 units EVERY 12 HOURS SUBQ 08/09/17 09:00 09/08/17 08:59 08/09/17 08:20 Morphine Sulfate (Morphine Sulfate) 2 mg Q4HR PRN IVP Severe Pain (Pain Scale 7-10) 08/09/17 01:00 08/16/17 00:59 08/09/17 01:33 Ondansetron HCl (Zofran) 4 mg Q6H PRN IVP Nausea & Vomiting 08/09/17 01:00 09/08/17 00:59 Patient Own Medication (Patient's Own Med) 1 ea DAILY ORAL 08/09/17 16:00 09/08/17 15:59 08/09/17 15:51 Vancomycin HCl (Vanco rx to dose) 1 ea DAILY PRN MISC Per rx protocol 08/09/17 11:45 09/08/17 11:44 Vancomycin HCl 1 gm/Dextrose 275 ml @ 183.708 mls/hr Q12HR@0100,1300 IVPB 08/10/17 01:00 08/15/17 00:59 ROS: Negative other than HPI PE: Last Vital Signs Date Time Temp Pulse Resp B/P (MAP) Pulse Ox O2 Delivery O2 Flow Rate FiO2 08/09/17 16:00 98.1 75 19 95/50 97 98.1 08/09/17 06:47 Room Air 21 NAD, AAOX3, [place] NC/AT, OPC c MMM Supple s LAD or JVD CTA x decreased @ L base RRR S/NT/ND c NABS No C/C/E Laboratory Tests Test 08/08/17 18:05 08/08/17 21:30 08/09/17 07:00 White Blood Count 17.6 K/UL (4.8-10.8) H 23.4 K/UL (4.8-10.8) *H Red Blood Count 4.69 M/UL (4.70-6.10) L 3.85 M/UL (4.70-6.10) L Hemoglobin 14.4 G/DL (14.2-18.0) 11.9 G/DL (14.2-18.0) L Hematocrit 42.3 % (42.0-52.0) 34.6 % (42.0-52.0) L Mean Corpuscular Volume 90 FL (80-99) 90 FL (80-99) Mean Corpuscular Hemoglobin 30.7 PG (27.0-31.0) 30.9 PG (27.0-31.0) Mean Corpuscular Hemoglobin Concent 34.1 G/DL (32.0-36.0) 34.3 G/DL (32.0-36.0) Red Cell Distribution Width 12.6 % (11.6-14.8) 12.7 % (11.6-14.8) Platelet Count 292 K/UL (150-450) 276 K/UL (150-450) Mean Platelet Volume 7.1 FL (6.5-10.1) 7.1 FL (6.5-10.1) Neutrophils (%) (Auto) 88.5 % (45.0-75.0) H % (45.0-75.0) Lymphocytes (%) (Auto) 5.6 % (20.0-45.0) L % (20.0-45.0) Monocytes (%) (Auto) 5.6 % (1.0-10.0) % (1.0-10.0) Eosinophils (%) (Auto) 0.0 % (0.0-3.0) % (0.0-3.0) Basophils (%) (Auto) 0.2 % (0.0-2.0) % (0.0-2.0) Urine Color [place] Urine Appearance Cloudy Urine pH 5 (4.5-8.0) Urine Specific [place] 1.020 (1.005-1.035) Urine Protein 3+ (NEGATIVE) H Urine Glucose (UA) Negative (NEGATIVE) Urine Ketones 1+ (NEGATIVE) H Urine Occult Blood 4+ (NEGATIVE) H Urine Nitrite Positive (NEGATIVE) H Urine Bilirubin 2+ (NEGATIVE) H Urine Ictotest Positive Urine Urobilinogen 8 MG/DL (0.0-1.0) H Urine Leukocyte Esterase 1+ (NEGATIVE) H Urine RBC 2-4 /HPF (0 - 0) H Urine WBC 5-10 /HPF (0 - 0) H Urine Squamous Epithelial Cells None /LPF (NONE/OCC) Urine Bacteria Many /HPF (NONE) H Urine Granular Casts 15-20 /LPF (NONE) H Sodium Level 132 MMOL/L (136-145) L 135 MMOL/L (136-145) L Potassium Level 3.3 MMOL/L (3.5-5.1) L 3.4 MMOL/L (3.5-5.1) L Chloride Level 95 MMOL/L (98-107) L 102 MMOL/L (98-107) Carbon Dioxide Level 27 MMOL/L (21-32) 23 MMOL/L (21-32) Anion Gap 10 mmol/L (5-15) 10 mmol/L (5-15) Blood Urea Nitrogen 29 mg/dL (7-18) H 27 mg/dL (7-18) H Creatinine 1.4 MG/DL (0.55-1.30) H 1.0 MG/DL (0.55-1.30) Estimat Glomerular Filtration Rate 52.1 mL/min (>60) > 60 mL/min (>60) Glucose Level 148 MG/DL (74-106) H 102 MG/DL (74-106) Lactic Acid Level 4.20 mmol/L (0.66-2.22) H 1.20 mmol/L (0.66-2.22) Calcium Level 8.8 MG/DL (8.5-10.1) 7.6 MG/DL (8.5-10.1) L Total Bilirubin 1.6 MG/DL (0.2-1.0) H 1.3 MG/DL (0.2-1.0) H Direct Bilirubin 0.5 MG/DL (0.0-0.3) H 0.4 MG/DL (0.0-0.3) H Aspartate Amino Transf (AST/SGOT) 29 U/L (15-37) 32 U/L (15-37) Alanine Aminotransferase (ALT/SGPT) 28 U/L (12-78) 28 U/L (12-78) Alkaline Phosphatase 65 U/L (46-116) 58 U/L (46-116) Creatine Kinase MB 0.7 NG/ML (0.0-3.6) Troponin I 0.000 ng/mL (0.000-0.056) Total Protein 8.3 G/DL (6.4-8.2) H 6.7 G/DL (6.4-8.2) Albumin 2.8 G/DL (3.4-5.0) L 2.2 G/DL (3.4-5.0) L Globulin 5.5 g/dL 4.5 g/dL Albumin/Globulin Ratio 0.5 (1.0-2.7) L 0.5 (1.0-2.7) L Lipase 49 U/L (73-393) L Differential Total Cells Counted 100 Neutrophils % (Manual) 79 % (45-75) H Lymphocytes % (Manual) 14 % (20-45) L Monocytes % (Manual) 7 % (1-10) Eosinophils % (Manual) 0 % (0-3) Basophils % (Manual) 0 % (0-2) Band Neutrophils 0 % (0-8) Platelet Estimate Adequate Platelet Morphology Normal Red Blood Cell Morphology Normal Microbiology Date/Time Source Procedure Growth Status 08/08/17 18:16 Blood Blood Culture - Preliminary Gram Positive Cocci Resulted 08/08/17 18:05 Blood Blood Culture - Preliminary Gram Positive Cocci Resulted 08/08/17 18:05 Nasal Nares Influenza Types A,B Antigen (KATHI) - Final Complete 08/08/17 18:05 Urine,Clean Catch Urine Culture - Preliminary Gram Positive Cocci Resulted IMAGING: CXR: L based inf and effusion CT AP: PN, L > R BiB inf, loculated L sided effusion Assessment/Plan ASSESSMENT: * Febrile illness & sepsis, CAP with loculated effusion + UTI with PN * Multilobar CAP with loculated L sided effusion, parapneumonic effusion vs empyema * GPC sepsis * GPC UTI with PN * Marked leukocytosis 2/2 above * HIV with unknown CD4 count * [facility] PLAN: * Continue current antimicrobial therapy (Vanco, Cefepime, Azithro) per ID * F/U Cx's * F/U full CT chest * Thoracentesis ordered for friday. However, if any e/o worsening loculated effusion or clinical deterioration will need urgent tube thoracostomy * Optimize pulmonary hygiene/mobilize as tolerated * PRN O2 to keep SaO2 > 90% * PRN HHN's * PRN Robitussin * cART per ID, F/U CD4 count and VL * DVT Px: Hep SQ D/W ID and PMD ILENE UMAÑA M.D. Aug 09, 2017 16:44
--- NOTE | 2017-08-09 17:31 | History and Physical ---
History of Present Illness General Date patient seen: Aug 09, 2017 Reason for Hospitalization: Flu Like Symptoms Present Illness HPI 57-year-old male with a history of HIV who presented to the ED c/o fever. He also reported associated myalgia, nonproductive cough, and dry mouth for the past few days. He denies hemoptysis or chest pain but does report he has chest wall and abdominal wall pain when he coughs. He was admitted for further care. Allergies: Coded Allergies: No Known Allergies (Unverified , 07/01/16) Medication History Scheduled [Trumeq 600-300], 1 TAB PO DAILY, (Reported) Scheduled PRN Ibuprofen* (Motrin*), 600 MG ORAL Q6H PRN for For Pain Ibuprofen* (Motrin*), 600 MG ORAL Q8H PRN for For Pain Tramadol Hcl* (Ultram*), 50 MG ORAL Q6H PRN for For Pain Patient History History Provided By: Patient Healthcare decision maker Resuscitation status Advanced Directive on File Past Medical/Surgical History Past Medical/Surgical History: (1) HIV (human immunodeficiency virus infection) Review of Systems All Other Systems: negative except mentioned in HPI Physical Exam General Appearance: WD/WN, no apparent distress HEENT: normocephalic, atraumatic Respiratory/Chest: decreased breath sounds Cardiovascular/Chest: normal rate, regular rhythm Abdomen: non tender, soft Extremities: no edema Neurologic: alert, oriented x 3, responsive Last 24 Hour Vital Signs Date Time Temp Pulse Resp B/P (MAP) Pulse Ox O2 Delivery O2 Flow Rate FiO2 08/09/17 16:00 98.1 75 19 95/50 97 98.1 08/09/17 12:00 98.8 94 19 99/58 96 98.8 08/09/17 08:00 99.9 97 19 109/70 95 99.9 08/09/17 06:47 92 18 Room Air 21 08/09/17 04:00 99.7 101 18 107/68 94 Room Air 99.7 08/09/17 00:00 98.4 89 16 115/71 95 Room Air 98.4 08/08/17 22:20 99.3 83 21 97/63 97 Room Air 99.3 08/08/17 21:48 99.3 83 21 97/63 97 Room Air 99.3 08/08/17 20:07 98.5 97 22 100/68 97 Room Air 98.5 08/08/17 20:07 98.5 08/08/17 19:11 102.2 08/08/17 18:52 102.2 110 20 121/74 99 Room Air 102.2 08/08/17 18:00 98.6 115 26 114/78 99 Room Air 98.6 08/08/17 17:45 124 22 Room Air Intake and Output 08/08/17 08/09/17 19:00 07:00 Intake Total 55 ml Balance 55 ml IV Total 55 ml # Voids 1 2 # Bowel Movements 2 Laboratory Tests Test 08/08/17 18:05 08/08/17 21:30 08/09/17 07:00 White Blood Count 17.6 K/UL (4.8-10.8) H 23.4 K/UL (4.8-10.8) *H Red Blood Count 4.69 M/UL (4.70-6.10) L 3.85 M/UL (4.70-6.10) L Hemoglobin 14.4 G/DL (14.2-18.0) 11.9 G/DL (14.2-18.0) L Hematocrit 42.3 % (42.0-52.0) 34.6 % (42.0-52.0) L Mean Corpuscular Volume 90 FL (80-99) 90 FL (80-99) Mean Corpuscular Hemoglobin 30.7 PG (27.0-31.0) 30.9 PG (27.0-31.0) Mean Corpuscular Hemoglobin Concent 34.1 G/DL (32.0-36.0) 34.3 G/DL (32.0-36.0) Red Cell Distribution Width 12.6 % (11.6-14.8) 12.7 % (11.6-14.8) Platelet Count 292 K/UL (150-450) 276 K/UL (150-450) Mean Platelet Volume 7.1 FL (6.5-10.1) 7.1 FL (6.5-10.1) Neutrophils (%) (Auto) 88.5 % (45.0-75.0) H % (45.0-75.0) Lymphocytes (%) (Auto) 5.6 % (20.0-45.0) L % (20.0-45.0) Monocytes (%) (Auto) 5.6 % (1.0-10.0) % (1.0-10.0) Eosinophils (%) (Auto) 0.0 % (0.0-3.0) % (0.0-3.0) Basophils (%) (Auto) 0.2 % (0.0-2.0) % (0.0-2.0) Urine Color [place] Urine Appearance Cloudy Urine pH 5 (4.5-8.0) Urine Specific [place] 1.020 (1.005-1.035) Urine Protein 3+ (NEGATIVE) H Urine Glucose (UA) Negative (NEGATIVE) Urine Ketones 1+ (NEGATIVE) H Urine Occult Blood 4+ (NEGATIVE) H Urine Nitrite Positive (NEGATIVE) H Urine Bilirubin 2+ (NEGATIVE) H Urine Ictotest Positive Urine Urobilinogen 8 MG/DL (0.0-1.0) H Urine Leukocyte Esterase 1+ (NEGATIVE) H Urine RBC 2-4 /HPF (0 - 0) H Urine WBC 5-10 /HPF (0 - 0) H Urine Squamous Epithelial Cells None /LPF (NONE/OCC) Urine Bacteria Many /HPF (NONE) H Urine Granular Casts 15-20 /LPF (NONE) H Sodium Level 132 MMOL/L (136-145) L 135 MMOL/L (136-145) L Potassium Level 3.3 MMOL/L (3.5-5.1) L 3.4 MMOL/L (3.5-5.1) L Chloride Level 95 MMOL/L (98-107) L 102 MMOL/L (98-107) Carbon Dioxide Level 27 MMOL/L (21-32) 23 MMOL/L (21-32) Anion Gap 10 mmol/L (5-15) 10 mmol/L (5-15) Blood Urea Nitrogen 29 mg/dL (7-18) H 27 mg/dL (7-18) H Creatinine 1.4 MG/DL (0.55-1.30) H 1.0 MG/DL (0.55-1.30) Estimat Glomerular Filtration Rate 52.1 mL/min (>60) > 60 mL/min (>60) Glucose Level 148 MG/DL (74-106) H 102 MG/DL (74-106) Lactic Acid Level 4.20 mmol/L (0.66-2.22) H 1.20 mmol/L (0.66-2.22) Calcium Level 8.8 MG/DL (8.5-10.1) 7.6 MG/DL (8.5-10.1) L Total Bilirubin 1.6 MG/DL (0.2-1.0) H 1.3 MG/DL (0.2-1.0) H Direct Bilirubin 0.5 MG/DL (0.0-0.3) H 0.4 MG/DL (0.0-0.3) H Aspartate Amino Transf (AST/SGOT) 29 U/L (15-37) 32 U/L (15-37) Alanine Aminotransferase (ALT/SGPT) 28 U/L (12-78) 28 U/L (12-78) Alkaline Phosphatase 65 U/L (46-116) 58 U/L (46-116) Creatine Kinase MB 0.7 NG/ML (0.0-3.6) Troponin I 0.000 ng/mL (0.000-0.056) Total Protein 8.3 G/DL (6.4-8.2) H 6.7 G/DL (6.4-8.2) Albumin 2.8 G/DL (3.4-5.0) L 2.2 G/DL (3.4-5.0) L Globulin 5.5 g/dL 4.5 g/dL Albumin/Globulin Ratio 0.5 (1.0-2.7) L 0.5 (1.0-2.7) L Lipase 49 U/L (73-393) L Differential Total Cells Counted 100 Neutrophils % (Manual) 79 % (45-75) H Lymphocytes % (Manual) 14 % (20-45) L Monocytes % (Manual) 7 % (1-10) Eosinophils % (Manual) 0 % (0-3) Basophils % (Manual) 0 % (0-2) Band Neutrophils 0 % (0-8) Platelet Estimate Adequate Platelet Morphology Normal Red Blood Cell Morphology Normal Microbiology Date/Time Source Procedure Growth Status 08/08/17 18:16 Blood Blood Culture - Preliminary Gram Positive Cocci Resulted 08/08/17 18:05 Blood Blood Culture - Preliminary Gram Positive Cocci Resulted 08/08/17 18:05 Nasal Nares Influenza Types A,B Antigen (KATHI) - Final Complete 08/08/17 18:05 Urine,Clean Catch Urine Culture - Preliminary Gram Positive Cocci Resulted Height (Feet): 5 Height (Inches): 8.00 Weight (Pounds): 157 Medications Current Medications Medications (Trade) Dose Ordered Sig/Bhavani Route PRN Reason Start Time Stop Time Status Last Admin Dose Admin Acetaminophen (Tylenol) 650 mg Q4H PRN ORAL Mild Pain (Pain Scale 1-3) 08/09/17 01:00 09/08/17 00:59 08/09/17 11:02 Acetaminophen/ Hydrocodone Bitart ([place] 10/325) 1 tab Q4H PRN ORAL Breakthrough Pain 08/09/17 01:00 08/16/17 00:59 Albuterol/ Ipratropium (Albuterol/ Ipratropium) 3 ml Q4HR PRN HHN Shortness of Breath 08/09/17 01:00 08/14/17 00:59 Azithromycin 250 mg/Sodium Chloride 275 ml @ 275 mls/hr Q24HRS IV 08/09/17 21:00 08/15/17 21:59 Cefepime HCl 2 gm/ Sodium Chloride 55 ml @ 110 mls/hr Q12H IVPB 08/08/17 23:00 08/15/17 23:59 08/09/17 11:02 Dextrose (Dextrose 50%) STAT PRN IV Hypoglycemia 08/09/17 01:00 09/08/17 00:59 Guaifenesin/ Dextromethorphan (Robitussin DM) 10 ml Q4H PRN ORAL For Cough 08/08/17 18:00 09/07/17 17:59 08/08/17 18:02 Heparin Sodium (Porcine) (Heparin 5000 units/ml) 5,000 units EVERY 12 HOURS SUBQ 08/09/17 09:00 09/08/17 08:59 08/09/17 08:20 Morphine Sulfate (Morphine Sulfate) 2 mg Q4HR PRN IVP Severe Pain (Pain Scale 7-10) 08/09/17 01:00 08/16/17 00:59 08/09/17 01:33 Ondansetron HCl (Zofran) 4 mg Q6H PRN IVP Nausea & Vomiting 08/09/17 01:00 4/16/18 00:59 Patient Own Medication (Patient's Own Med) 1 ea DAILY ORAL 08/09/17 16:00 09/08/17 15:59 08/09/17 15:51 Vancomycin HCl (Vanco rx to dose) 1 ea DAILY PRN MISC Per rx protocol 08/09/17 11:45 09/08/17 11:44 Vancomycin HCl 1 gm/Dextrose 275 ml @ 183.708 mls/hr Q12HR@0100,1300 IVPB 08/10/17 01:00 08/15/17 00:59 Assessment/Plan Problem List: (1) CAP (community acquired pneumonia) ICD Codes: J18.9 - Pneumonia, unspecified organism SNOMED: 908921038 (2) Pleural effusion on left ICD Codes: J90 - Pleural effusion, not elsewhere classified SNOMED: 22022163 (3) HIV (human immunodeficiency virus infection) ICD Codes: B20 - Human immunodeficiency virus [HIV] disease SNOMED: 86564667 (4) Sepsis ICD Codes: A41.9 - Sepsis, unspecified organism SNOMED: 85503806 (5) UTI (urinary tract infection) ICD Codes: N39.0 - Urinary tract infection, site not specified SNOMED: 22582925 Assessment/Plan ID following. Empiric abx per ID. FOllow up cultures. Cardio and Pulm following. F/u CT. Resume home meds. CASTRO VAUGHAN Aug 09, 2017 17:31
--- NOTE | 2017-08-09 18:07 | Cardiac Electrophysiology PN ---
Subjective Subjective [id number] Objective Last 24 Hour Vital Signs Date Time Temp Pulse Resp B/P (MAP) Pulse Ox O2 Delivery O2 Flow Rate FiO2 08/09/17 16:00 98.1 75 19 95/50 97 98.1 08/09/17 12:00 98.8 94 19 99/58 96 98.8 08/09/17 08:00 99.9 97 19 109/70 95 99.9 08/09/17 06:47 92 18 Room Air 21 08/09/17 04:00 99.7 101 18 107/68 94 Room Air 99.7 08/09/17 00:00 98.4 89 16 115/71 95 Room Air 98.4 08/08/17 22:20 99.3 83 21 97/63 97 Room Air 99.3 08/08/17 21:48 99.3 83 21 97/63 97 Room Air 99.3 08/08/17 20:07 98.5 97 22 100/68 97 Room Air 98.5 08/08/17 20:07 98.5 08/08/17 19:11 102.2 08/08/17 18:52 102.2 110 20 121/74 99 Room Air 102.2 Intake and Output 08/08/17 08/09/17 19:00 07:00 Intake Total 55 ml Balance 55 ml IV Total 55 ml # Voids 1 2 # Bowel Movements 2 Laboratory Tests Test 08/08/17 21:30 08/09/17 07:00 Lactic Acid Level 1.20 mmol/L (0.66-2.22) White Blood Count 23.4 K/UL (4.8-10.8) *H Red Blood Count 3.85 M/UL (4.70-6.10) L Hemoglobin 11.9 G/DL (14.2-18.0) L Hematocrit 34.6 % (42.0-52.0) L Mean Corpuscular Volume 90 FL (80-99) Mean Corpuscular Hemoglobin 30.9 PG (27.0-31.0) Mean Corpuscular Hemoglobin Concent 34.3 G/DL (32.0-36.0) Red Cell Distribution Width 12.7 % (11.6-14.8) Platelet Count 276 K/UL (150-450) Mean Platelet Volume 7.1 FL (6.5-10.1) Neutrophils (%) (Auto) % (45.0-75.0) Lymphocytes (%) (Auto) % (20.0-45.0) Monocytes (%) (Auto) % (1.0-10.0) Eosinophils (%) (Auto) % (0.0-3.0) Basophils (%) (Auto) % (0.0-2.0) Differential Total Cells Counted 100 Neutrophils % (Manual) 79 % (45-75) H Lymphocytes % (Manual) 14 % (20-45) L Monocytes % (Manual) 7 % (1-10) Eosinophils % (Manual) 0 % (0-3) Basophils % (Manual) 0 % (0-2) Band Neutrophils 0 % (0-8) Platelet Estimate Adequate Platelet Morphology Normal Red Blood Cell Morphology Normal Sodium Level 135 MMOL/L (136-145) L Potassium Level 3.4 MMOL/L (3.5-5.1) L Chloride Level 102 MMOL/L (98-107) Carbon Dioxide Level 23 MMOL/L (21-32) Anion Gap 10 mmol/L (5-15) Blood Urea Nitrogen 27 mg/dL (7-18) H Creatinine 1.0 MG/DL (0.55-1.30) Estimat Glomerular Filtration Rate > 60 mL/min (>60) Glucose Level 102 MG/DL (74-106) Calcium Level 7.6 MG/DL (8.5-10.1) L Total Bilirubin 1.3 MG/DL (0.2-1.0) H Direct Bilirubin 0.4 MG/DL (0.0-0.3) H Aspartate Amino Transf (AST/SGOT) 32 U/L (15-37) Alanine Aminotransferase (ALT/SGPT) 28 U/L (12-78) Alkaline Phosphatase 58 U/L (46-116) Total Protein 6.7 G/DL (6.4-8.2) Albumin 2.2 G/DL (3.4-5.0) L Globulin 4.5 g/dL Albumin/Globulin Ratio 0.5 (1.0-2.7) L Microbiology Date/Time Source Procedure Growth Status 08/08/17 18:16 Blood Blood Culture - Preliminary Gram Positive Cocci Resulted 08/08/17 18:05 Blood Blood Culture - Preliminary Gram Positive Cocci Resulted 3/16/18 18:05 Nasal Nares Influenza Types A,B Antigen (KATHI) - Final Complete 08/08/17 18:05 Urine,Clean Catch Urine Culture - Preliminary Gram Positive Cocci Resulted OBED DONATO Aug 09, 2017 18:07
[2017-08-09 20:00] VITALS: BP 111/72
[2017-08-09] MEDS: Azithromycin 250 MG in NS 275 ML IV SCH (21:53)
--- NOTE | 2017-08-09 23:00 | Consultation ---
DATE OF CONSULTATION: 08/09/2017 INFECTIOUS DISEASE CONSULTATION CONSULTING PHYSICIAN: Marvin Bullock M.D. REQUESTING PHYSICIAN: Remy Thruman M.D. REASON FOR CONSULTATION: Left lower lobe pneumonia with pleural effusion, possible empyema in HIV patient with left pyelonephritis, recommendation for antibiotics treatment and further management. HISTORY OF PRESENT ILLNESS: The patient is a 57-year-old male with history of HIV who has been on Triumeq treatment for the last couple of years, well controlled, presented to [facility] emergency room with progressive cough, nonproductive, malaise, and dry mouth associated with fever and chills. The patient has been overworking over the last couple of days to move to [place] from his current apartment, which [place] in the neighborhood and he exerted himself too much over the last couple of days to the point that he felt fatigued and exhausted and he started coughing. Denied any hemoptysis, syncope or chest pain, but he has left-sided abdominal wall pain when he coughs. The patient has been up to date with his HIV medication and compliant 100%. In the emergency room, his temperature was 98.9 degrees and saturating 96% on room air. Chest x-ray showed left basilar consolidation and effusion suggestive of pneumonia. Urinalysis showed evidence of infection. CT abdomen and pelvis showed left perirenal stranding suggestive of pyelonephritis and possible loculized left pleural effusion. So, Infectious Disease consultation was requested for further evaluation and management of his pneumonia, pleural effusion, possible empyema and left pyelonephritis. PAST MEDICAL HISTORY: Significant for HIV. MEDICATIONS: The patient was given ceftriaxone and azithromycin in the emergency room. He is on Triumeq at home for his HIV care. SOCIAL HISTORY: The patient currently lives by himself. He was living with his mother in [place], who was sick and he was taking care of her, but he moved eventually to [place]. Denied using any drugs, tobacco, or alcohol. FAMILY HISTORY: Noncontributory. REVIEW OF SYSTEMS: A 14-point of system reviewed were all negative apart from the one I mentioned above in my H and P. PHYSICAL EXAMINATION: GENERAL: A middle-aged male, laying in bed, hard of hearing, alert, responsive, not in acute distress, coughing. VITAL SIGNS: Temperature 102.2 degrees, pulse 110, respirations 20, blood pressure 121/74, and saturation 99% on room air. HEENT: Normocephalic and atraumatic. Pupils reactive to light equally. Dry oral mucosa. No exudate. No thrush. No ulceration. NECK: Supple. No lymphadenopathy. CARDIOVASCULAR: He is tachycardic. S1 and S2 normal. No murmur. LUNGS: He had diminished breathing sounds on the left lower lobe with crackles. Normal breathing efforts. ABDOMEN: Soft, nontender, and nondistended. Normal bowel sounds. No hepatosplenomegaly. No ascites. EXTREMITIES: No edema or cyanosis. SKIN: No rash. No hives. No ulceration. LABORATORY AND DIAGNOSTIC DATA: Labs showed white count of 17.6, hemoglobin of 14.4, and platelet count of 292. BUN of 27 and creatinine of 1. AST of 32 and ALT of 28. Urinalysis showed positive nitrite, +1 leukocyte esterase, wbc 5 to 10, and many bacteria. Microbiology, influenza screening for A and B was negative. Blood culture and urine culture were pending. Imaging, a chest x-ray showed dense left basilar opacification and layering small left pleural effusion. Findings represent left-sided pneumonia. CT scan abdomen and pelvis without contrast showed dense left basilar consolidation with adjacent left-sided pleural effusion, may be partially loculated. Findings raise possibility of basilar pneumonia, 2 to 3 mm nonobstructing stone in the left kidney lower pole, asymmetric increased perinephric stranding around the left kidney raising question for possible pyelonephritis, a 5 mm hyperdense lesion along the mid lower pole in the left kidney, which may represent hemorrhagic or proteinaceous cyst. ASSESSMENT AND RECOMMENDATION: 1. Community-acquired pneumonia with left lower lobe infiltration and loculized pleural effusion. We will start the patient empirically on cefepime and Zithromax, and send sputum culture if he produces any. We will attempt to obtain CT scan of the chest to further evaluate his left pleural effusion. He may benefit from chest tube if he has evidence of empyema or loculized effusion. 2. Acute pyelonephritis. We will send urine culture. Start cefepime empiric coverage pending culture results. CT abdomen did not show any evidence of abscess. 3. Sepsis due to the above. Continue wide-spectrum antibiotics pending blood culture. 4. Human immunodeficiency virus. We will resume Triumeq medication. We will check his viral load and CD4 count. The patient to follow up with HIV provider as an outpatient. Thank you for the consult. ID will continue to follow. Please feel free to call with any question. Issalomón Bullock M.D. DR: JENNY JOB#: [id number] CC:
[2017-08-10] VITALS: BP 112/70
[2017-08-10] MEDS: Vancomycin 1gm/D5W 275ml IVPB SCH ×4 (00:54→12:54)
--- NOTE | 2017-08-10 03:45 | Consultation ---
DATE OF CONSULTATION: 08/09/2017 CARDIOLOGY CONSULTATION CONSULTING PHYSICIAN: Yoandy Proctor M.D. REFERRING PHYSICIAN: Remy Thurman M.D. REASON FOR CONSULTATION: Pleural effusion and shortness of breath. HISTORY OF PRESENT ILLNESS: This is a 57-year-old gentleman with history of HIV with unknown CD4 count, presented with several weeks of cough, congestion, and shortness of breath. The patient was noted to have left-sided pleural effusion as well as infiltrate. The patient also was found to have pyelonephritis and started on cefepime for Gram-positive cocci in blood and urine. The patient was evaluated by Dr. Alarcon from a pulmonary perspective and a Cardiology consultation was obtained for further evaluation. REVIEW OF SYSTEMS: Negative other than what was mentioned in the history of present illness. PAST MEDICAL HISTORY: As mentioned above. SOCIAL HISTORY: He does not smoke or drink alcohol. FAMILY HISTORY: Noncontributory. PHYSICAL EXAMINATION: VITAL SIGNS: Blood pressure is 94/50, pulse 75, respirations , temperature 98.1 degrees, and maximum temperature is 99.9 degrees. HEAD AND NECK: Showed no JVD. LUNGS: Decreased breath sounds. CARDIOVASCULAR: Shows regular S1 and S2 with no gallop or murmur. ABDOMEN: Soft. EXTREMITIES: Have no pitting edema. LABORATORY DATA: White count 17.5, hemoglobin 11.9, hematocrit 34.6, and platelets 276. Sodium is 135, potassium 3.4, BUN of 27, creatinine 1, and glucose of 102. His troponin is negative. Urinalysis, positive for nitrite and 5 to 10 wbc and many bacteria. ASSESSMENT AND PLAN: 1. Pleural effusion. It could be due to pneumonia. The patient will be on IV antibiotics with vancomycin and azithromycin. I will get an echocardiogram to evaluate for ejection fraction and wall motion abnormality. 2. Human immunodeficiency virus. 3. Pyelonephritis, on IV antibiotics. Thank you very much, Dr. Thurman, for allowing me to participate in the care of this patient. Please do not hesitate to contact me for any questions regarding my evaluation. Yoandy Proctor M.D. DR: Romeo JOB#: [id number] CC:
[2017-08-10 04:00] VITALS: BP 97/66
[2017-08-10 08:05] LABS: CHOLESTEROL 95 MG/DL (< 200); HDL CHOLESTEROL 10 MG/DL (40-60); TRIGLYCERIDES 143 MG/DL (30-150)
[2017-08-10 08:25] VITALS: BP 118/73
[2017-08-10] MEDS: Heparin 5000 units/ml inj SUBQ SCH ×2 (09:04→21:11)
[2017-08-10 10:18] LABS: HEMATOCRIT 36.4 % (42.0-52.0); HEMOGLOBIN 12.8 G/DL (14.2-18.0); MEAN CORPUSCULAR VOLUME 91 FL (80-99); PLATELET COUNT 323 K/UL (150-450); RED BLOOD COUNT 4.01 M/UL (4.70-6.10); RED CELL DISTRIBUTION WIDTH 12.9 % (11.6-14.8); WHITE BLOOD COUNT 17.3 K/UL (4.8-10.8)
[2017-08-10] MEDS: Cefepime HCl 2 GM in NS 55 ML IVPB SCH ×2 (10:42→23:19)
--- NOTE | 2017-08-10 11:14 | Pulmonology Progress Note ---
Assessment/Plan Problems: (1) CAP (community acquired pneumonia) (2) Pleural effusion on left (3) Sepsis (4) Acute pyelonephritis (5) HIV (human immunodeficiency virus infection) Assessment/Plan ASSESSMENT: * Febrile illness & sepsis, CAP with loculated effusion + UTI with PN * Multilobar CAP with loculated L sided effusion, parapneumonic effusion vs empyema * GPC sepsis * GPC UTI with PN * Marked leukocytosis 2/2 above * HIV with unknown CD4 count * [facility] PLAN: * Continue current antimicrobial therapy (Vanco, Cefepime, Azithro) per ID * F/U Cx's * F/U full CT chest * Thoracentesis ordered for friday. However, if any e/o worsening loculated effusion or clinical deterioration will need urgent tube thoracostomy * Optimize pulmonary hygiene/mobilize as tolerated * PRN O2 to keep SaO2 > 90% * PRN HHN's * PRN Robitussin * cART per ID, F/U CD4 count and VL * DVT Px: Hep SQ D/W ID and PMD Subjective Allergies: Coded Allergies: No Known Allergies (Unverified , 07/01/16) Subjective Tm 100.9 VSS, stable on RA, less cough, no SOB, + flank pain, no NVDC, george PO, CT done but not loaded, WCt better Objective Last 24 Hour Vital Signs Date Time Temp Pulse Resp B/P (MAP) Pulse Ox O2 Delivery O2 Flow Rate FiO2 08/10/17 09:30 79 19 Room Air 21 08/10/17 08:25 99.9 86 22 118/73 97 Room Air 99.9 08/10/17 04:00 97.9 77 18 97/66 94 Room Air 97.9 08/10/17 01:27 98.3 08/10/17 00:28 100.9 08/10/17 00:00 100.9 97 21 112/70 94 Room Air 100.9 08/09/17 20:31 75 19 Room Air 21 08/09/17 20:00 99.1 95 18 111/72 94 Room Air 99.1 08/09/17 16:00 98.1 75 19 95/50 97 98.1 08/09/17 12:00 98.8 94 19 99/58 96 98.8 Intake and Output 3/17/18 3/18/18 19:00 07:00 Intake Total 390 ml 580 ml Balance 390 ml 580 ml Intake Oral 390 ml 580 ml # Voids 3 General Appearance: WD/WN, no acute distress HEENT: normocephalic, atraumatic, anicteric, mucous membranes moist Respiratory/Chest: chest wall non-tender, lungs clear, normal breath sounds, no respiratory distress, no accessory muscle use Cardiovascular: normal peripheral pulses, normal rate, regular rhythm Abdomen: normal bowel sounds, soft, non tender, no organomegaly, non distended , no mass Extremities: no cyanosis, no clubbing, no edema Microbiology Date/Time Source Procedure Growth Status 08/08/17 18:16 Blood Blood Culture - Preliminary Gram Positive Cocci Resulted 08/08/17 18:05 Blood Blood Culture - Preliminary Gram Positive Cocci Resulted 08/09/17 01:30 Sputum Expectorated Gram Stain - Final Complete 08/09/17 01:30 Sputum Expectorated Sputum Culture - Final Complete 08/08/17 18:05 Nasal Nares Influenza Types A,B Antigen (KATHI) - Final Complete 08/09/17 07:20 Stool Clostridium difficile Toxin Assay - Final Complete 08/08/17 18:05 Urine,Clean Catch Urine Culture - Preliminary Gram Positive Cocci Resulted Laboratory Tests 08/10/17 06:25: White Blood Count 17.3H, Red Blood Count 4.01L, Hemoglobin 12.8L, Hematocrit 36.4L, Mean Corpuscular Volume 91, Mean Corpuscular Hemoglobin 32.0H, Mean Corpuscular Hemoglobin Concent 35.3, Red Cell Distribution Width 12.9, Platelet Count 323, Mean Platelet Volume 6.8, Neutrophils (%) (Auto) , Lymphocytes (%) ( Auto) , Monocytes (%) (Auto) , Eosinophils (%) (Auto) , Basophils (%) (Auto) , Neutrophils % (Manual) [Pending], Lymphocytes % (Manual) [Pending], Platelet Estimate [Pending], Platelet Morphology [Pending], Troponin I 0.000, Triglycerides Level 143, Cholesterol Level 95, LDL Cholesterol 38, HDL Cholesterol 10L, Cholesterol/HDL Ratio 9.5H, Thyroid Stimulating Hormone (TSH) 1.198, Free Thyroxine 1.27 Current Medications Medications (Trade) Dose Ordered Sig/Bhavani Route PRN Reason Start Time Stop Time Status Last Admin Dose Admin Acetaminophen (Tylenol) 650 mg Q4H PRN ORAL Mild Pain (Pain Scale 1-3) 08/09/17 01:00 09/08/17 00:59 08/10/17 00:28 Acetaminophen/ Hydrocodone Bitart ([place] 10/325) 1 tab Q4H PRN ORAL Breakthrough Pain 08/09/17 01:00 08/16/17 00:59 Albuterol/ Ipratropium (Albuterol/ Ipratropium) 3 ml Q4HR PRN HHN Shortness of Breath 08/09/17 01:00 08/14/17 00:59 Azithromycin 250 mg/Sodium Chloride 275 ml @ 275 mls/hr Q24HRS IV 08/09/17 21:00 08/15/17 21:59 08/09/17 21:53 Cefepime HCl 2 gm/ Sodium Chloride 55 ml @ 110 mls/hr Q12H IVPB 08/08/17 23:00 08/15/17 23:59 08/10/17 10:42 Dextrose (Dextrose 50%) STAT PRN IV Hypoglycemia 08/09/17 01:00 09/08/17 00:59 Guaifenesin/ Dextromethorphan (Robitussin DM) 10 ml Q4H PRN ORAL For Cough 08/08/17 18:00 09/07/17 17:59 08/08/17 18:02 Heparin Sodium (Porcine) (Heparin 5000 units/ml) 5,000 units EVERY 12 HOURS SUBQ 08/09/17 09:00 09/08/17 08:59 08/10/17 09:04 Morphine Sulfate (Morphine Sulfate) 2 mg Q4HR PRN IVP Severe Pain (Pain Scale 7-10) 08/09/17 01:00 08/16/17 00:59 08/09/17 01:33 Ondansetron HCl (Zofran) 4 mg Q6H PRN IVP Nausea & Vomiting 08/09/17 01:00 09/08/17 00:59 Patient Own Medication (Patient's Own Med) 1 ea DAILY ORAL 08/09/17 16:00 09/08/17 15:59 08/10/17 08:56 Vancomycin HCl (Vanco rx to dose) 1 ea DAILY PRN MISC Per rx protocol 08/09/17 11:45 09/08/17 11:44 Vancomycin HCl 1 gm/Dextrose 275 ml @ 183.708 mls/hr Q12HR@0100,1300 IVPB 08/10/17 01:00 08/15/17 00:59 08/10/17 00:54 ILENE UMAÑA M.D. Aug 10, 2017 11:14
[2017-08-10 12:22] VITALS: BP 117/70
--- NOTE | 2017-08-10 13:53 | Diagnostic Imaging Report ---
Indication: Soreness of breath, cough Technique: CT chest was performed utilizing automated exposure control without intravenous contrast material. Axial and sagittal and coronal images were generated. CT dose: Total DLP 566.83 mGycm; CTDI vol 16.65 mGy Comparison: Correlation made to images of the lower lungs from CT of the abdomen and pelvis 08/08/2017. Findings: There is a moderate-sized left multilocular loculated pleural effusion with subpulmonic component, fluid tracking along the fissure and associated partial collapse and consolidation of the left lung. Pneumonia or mass in the consolidated lung cannot be excluded. There is some left-sided septal thickening. Right lung is essentially clear. The central airways are patent. Heart is mildly enlarged. There is a small pericardial effusion. Thoracic aorta appears normal in caliber with mild calcification. Thyroid grossly unremarkable. No focal kinking: Lymphadenopathy is identified however evaluation is limited without contrast. 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 Perinephric stranding around the left kidney is noted, similar to findings of prior CT abdomen. No acute osseous abnormality is seen. IMPRESSION: * Moderate-sized multilocular loculated left pleural effusion as above with partial collapse and consolidation of the left lung. Pneumonia or mass in the consolidated lung is not entirely excluded. Follow-up exam after appropriate treatment (or within 2-3 months) is recommended. * Small pericardial effusion. * Status post clinically. * Partially imaged left perinephric stranding. This corresponds with the statrad preliminary report. The CT scanner at [facility] is accredited by the [employer] and the scans are performed using protocols designed to limit radiation exposure to as low as reasonably achievable to attain images of sufficient resolution adequate for diagnostic evaluation.
--- NOTE | 2017-08-10 14:11 | Infectious Diseases Prog Note ---
Assessment/Plan Problems: (1) Acute pyelonephritis Assessment & Plan: urine culture showed mixed contaminant , already on cefepime empiric coverage for sepsis (2) CAP (community acquired pneumonia) Assessment & Plan: complicated with loculated pleural effusion, continue cefepime and zithromax empiric coverage , await sputum culture (3) Pleural effusion on left Assessment & Plan: loculated, rule out empyema , recommend thoracentesis and CT for source control (4) Sepsis Assessment & Plan: due to the above, with gram positive cocci in chains, most likely streptococcus spp or enterococcus , will add vancomycin pending blood culture, continue cefepime empirically (5) HIV (human immunodeficiency virus infection) Assessment & Plan: continue triumeq pending his viral load ad CD4 counts Subjective Constitutional: Reports: fatigue, drenching sweats HEENT: Reports: no symptoms Respiratory: Reports: productive cough Breasts: Reports: no symptoms Cardiovascular: Reports: no symptoms Gastrointestinal/Abdominal: Reports: no symptoms Genitourinary: Reports: no symptoms Neurologic: Reports: no symptoms Psychiatric: Reports: no symptoms Skin: Reports: no symptoms Endocrine: Reports: no symptoms Hematologic: Reports: no symptoms Musculoskeletal: Reports: no symptoms Allergies: Coded Allergies: No Known Allergies (Unverified , 07/01/16) Objective Vital Signs Last 24 Hour Vital Signs Date Time Temp Pulse Resp B/P (MAP) Pulse Ox O2 Delivery O2 Flow Rate FiO2 08/10/17 12:22 99.1 93 20 117/70 95 Room Air 99.1 08/10/17 09:30 79 19 Room Air 21 08/10/17 08:25 99.9 86 22 118/73 97 Room Air 99.9 08/10/17 04:00 97.9 77 18 97/66 94 Room Air 97.9 08/10/17 01:27 98.3 08/10/17 00:28 100.9 08/10/17 00:00 100.9 97 21 112/70 94 Room Air 100.9 08/09/17 20:31 75 19 Room Air 21 08/09/17 20:00 99.1 95 18 111/72 94 Room Air 99.1 08/09/17 16:00 98.1 75 19 95/50 97 98.1 Height (Feet): 5 Height (Inches): 8.00 Weight (Pounds): 157 General Appearance: WD/WN, no acute distress HEENT: normocephalic, atraumatic, anicteric, mucous membranes moist, PERRL Respiratory/Chest: chest wall non-tender, no respiratory distress, no accessory muscle use, respiratory distress, decreased breath sounds, crackles/ rales Cardiovascular: normal peripheral pulses, normal rate, regular rhythm, no gallop/murmur, no JVD Abdomen: normal bowel sounds, soft, non tender, no organomegaly, non distended , no mass, no scars Extremities: no cyanosis, no clubbing Skin: no rash, no lesions, no ulcers Neurologic/Psychiatric: alert, oriented x 3 Lymphatic: no neck adenopathy, no groin adenopathy Microbiology Date/Time Source Procedure Growth Status 08/08/17 18:16 Blood Blood Culture - Preliminary Gram Positive Cocci Resulted 08/08/17 18:05 Blood Blood Culture - Preliminary Gram Positive Cocci Resulted 08/09/17 01:30 Sputum Expectorated Gram Stain - Final Complete 08/09/17 01:30 Sputum Expectorated Sputum Culture - Final Complete 08/08/17 18:05 Nasal Nares Influenza Types A,B Antigen (KATHI) - Final Complete 08/09/17 07:20 Stool Clostridium difficile Toxin Assay - Final Complete 08/08/17 18:05 Urine,Clean Catch Urine Culture - Preliminary Mixed Gram Positive Organism Resulted Laboratory Tests Test 08/10/17 06:25 White Blood Count 17.3 K/UL (4.8-10.8) H Red Blood Count 4.01 M/UL (4.70-6.10) L Hemoglobin 12.8 G/DL (14.2-18.0) L Hematocrit 36.4 % (42.0-52.0) L Mean Corpuscular Volume 91 FL (80-99) Mean Corpuscular Hemoglobin 32.0 PG (27.0-31.0) H Mean Corpuscular Hemoglobin Concent 35.3 G/DL (32.0-36.0) Red Cell Distribution Width 12.9 % (11.6-14.8) Platelet Count 323 K/UL (150-450) Mean Platelet Volume 6.8 FL (6.5-10.1) Neutrophils (%) (Auto) % (45.0-75.0) Lymphocytes (%) (Auto) % (20.0-45.0) Monocytes (%) (Auto) % (1.0-10.0) Eosinophils (%) (Auto) % (0.0-3.0) Basophils (%) (Auto) % (0.0-2.0) Differential Total Cells Counted 100 Neutrophils % (Manual) 87 % (45-75) H Lymphocytes % (Manual) 6 % (20-45) L Monocytes % (Manual) 7 % (1-10) Eosinophils % (Manual) 0 % (0-3) Basophils % (Manual) 0 % (0-2) Band Neutrophils 0 % (0-8) Platelet Estimate Adequate Platelet Morphology Normal Red Blood Cell Morphology Normal Troponin I 0.000 ng/mL (0.000-0.056) Triglycerides Level 143 MG/DL (30-150) Cholesterol Level 95 MG/DL (< 200) LDL Cholesterol 38 mg/dL (<100) HDL Cholesterol 10 MG/DL (40-60) L Cholesterol/HDL Ratio 9.5 (3.3-4.4) H Thyroid Stimulating Hormone (TSH) 1.198 uiU/mL (0.358-3.740) Free Thyroxine 1.27 NG/DL (0.76-1.46) Current Medications Medications (Trade) Dose Ordered Sig/Bhavani Route PRN Reason Start Time Stop Time Status Last Admin Dose Admin Acetaminophen (Tylenol) 650 mg Q4H PRN ORAL Mild Pain (Pain Scale 1-3) 08/09/17 01:00 09/08/17 00:59 08/10/17 12:54 Acetaminophen/ Hydrocodone Bitart ([place] 10/325) 1 tab Q4H PRN ORAL Breakthrough Pain 08/09/17 01:00 08/16/17 00:59 Albuterol/ Ipratropium (Albuterol/ Ipratropium) 3 ml Q4HR PRN HHN Shortness of Breath 08/09/17 01:00 08/14/17 00:59 Azithromycin 250 mg/Sodium Chloride 275 ml @ 275 mls/hr Q24HRS IV 08/09/17 21:00 08/15/17 21:59 08/09/17 21:53 Cefepime HCl 2 gm/ Sodium Chloride 55 ml @ 110 mls/hr Q12H IVPB 08/08/17 23:00 08/15/17 23:59 08/10/17 10:42 Dextrose (Dextrose 50%) STAT PRN IV Hypoglycemia 08/09/17 01:00 09/08/17 00:59 Guaifenesin/ Dextromethorphan (Robitussin DM) 10 ml Q4H PRN ORAL For Cough 08/08/17 18:00 09/07/17 17:59 08/08/17 18:02 Heparin Sodium (Porcine) (Heparin 5000 units/ml) 5,000 units EVERY 12 HOURS SUBQ 08/09/17 09:00 09/08/17 08:59 08/10/17 09:04 Morphine Sulfate (Morphine Sulfate) 2 mg Q4HR PRN IVP Severe Pain (Pain Scale 7-10) 08/09/17 01:00 08/16/17 00:59 08/09/17 01:33 Ondansetron HCl (Zofran) 4 mg Q6H PRN IVP Nausea & Vomiting 08/09/17 01:00 09/08/17 00:59 Patient Own Medication (Patient's Own Med) 1 ea DAILY ORAL 08/09/17 16:00 09/08/17 15:59 08/10/17 08:56 Vancomycin HCl (Vanco rx to dose) 1 ea DAILY PRN MISC Per rx protocol 08/09/17 11:45 09/08/17 11:44 Vancomycin HCl 1 gm/Dextrose 275 ml @ 183.708 mls/hr Q12HR@0100,1300 IVPB 08/10/17 01:00 08/15/17 00:59 08/10/17 12:54 Marvin Bullock M.D. Aug 10, 2017 14:11
--- NOTE | 2017-08-10 14:27 | General Progress Note ---
Progress Note Progress Note Surgery: 57M hx of HIV on prior treatment presented with fatigue and cough. ?pneumonia Noted to have left lower lung space disease with multi-loculated thick fluid collection; likely empyema. Patient seen and examined. Chart reviewed. Images reviewed. Labs/cultures noted. Given CT findings and history likely going to me matured complex empyema. Unlikely to be resolved with just a chest tube. Recommend ultrasound vs CT guided thoracentesis. Will likely need thoracic surgery for evacuation. -thoracentesis scheduled for tomorrow. will await results. -thank you for allowing to participate in Mr. Peralta's care. Bk Avelar Aug 10, 2017 14:27
[2017-08-10 16:00] VITALS: BP 112/53
--- NOTE | 2017-08-10 17:05 | Cardiac Electrophysiology PN ---
Assessment/Plan Assessment/Plan 1. Pleural effusion. It could be due to pneumonia. The patient will be on IV antibiotics with vancomycin and azithromycin. Going for thoracoscopy and possible decortication Parts Puller Dr Alarcon Echocardiogram EF 55%. ECG NSR with no ischemia. 2. Human immunodeficiency virus. 3. Pyelonephritis, on IV antibiotics. 4. Difficulty hearing DW RN Subjective Subjective Sleeping comfortably. RN at bedside.Had Echo and CT Thoracic done today Objective Last 24 Hour Vital Signs Date Time Temp Pulse Resp B/P (MAP) Pulse Ox O2 Delivery O2 Flow Rate FiO2 08/10/17 12:22 99.1 93 20 117/70 95 Room Air 99.1 08/10/17 09:30 79 19 Room Air 21 08/10/17 08:25 99.9 86 22 118/73 97 Room Air 99.9 08/10/17 04:00 97.9 77 18 97/66 94 Room Air 97.9 08/10/17 01:27 98.3 08/10/17 00:28 100.9 08/10/17 00:00 100.9 97 21 112/70 94 Room Air 100.9 08/09/17 20:31 75 19 Room Air 21 08/09/17 20:00 99.1 95 18 111/72 94 Room Air 99.1 Intake and Output 08/09/17 08/10/17 19:00 07:00 Intake Total 390 ml 580 ml Balance 390 ml 580 ml Intake Oral 390 ml 580 ml # Voids 3 Laboratory Tests Test 08/10/17 06:25 White Blood Count 17.3 K/UL (4.8-10.8) H Red Blood Count 4.01 M/UL (4.70-6.10) L Hemoglobin 12.8 G/DL (14.2-18.0) L Hematocrit 36.4 % (42.0-52.0) L Mean Corpuscular Volume 91 FL (80-99) Mean Corpuscular Hemoglobin 32.0 PG (27.0-31.0) H Mean Corpuscular Hemoglobin Concent 35.3 G/DL (32.0-36.0) Red Cell Distribution Width 12.9 % (11.6-14.8) Platelet Count 323 K/UL (150-450) Mean Platelet Volume 6.8 FL (6.5-10.1) Neutrophils (%) (Auto) % (45.0-75.0) Lymphocytes (%) (Auto) % (20.0-45.0) Monocytes (%) (Auto) % (1.0-10.0) Eosinophils (%) (Auto) % (0.0-3.0) Basophils (%) (Auto) % (0.0-2.0) Differential Total Cells Counted 100 Neutrophils % (Manual) 87 % (45-75) H Lymphocytes % (Manual) 6 % (20-45) L Monocytes % (Manual) 7 % (1-10) Eosinophils % (Manual) 0 % (0-3) Basophils % (Manual) 0 % (0-2) Band Neutrophils 0 % (0-8) Platelet Estimate Adequate Platelet Morphology Normal Red Blood Cell Morphology Normal Troponin I 0.000 ng/mL (0.000-0.056) Triglycerides Level 143 MG/DL (30-150) Cholesterol Level 95 MG/DL (< 200) LDL Cholesterol 38 mg/dL (<100) HDL Cholesterol 10 MG/DL (40-60) L Cholesterol/HDL Ratio 9.5 (3.3-4.4) H Thyroid Stimulating Hormone (TSH) 1.198 uiU/mL (0.358-3.740) Free Thyroxine 1.27 NG/DL (0.76-1.46) Microbiology Date/Time Source Procedure Growth Status 08/08/17 18:16 Blood Blood Culture - Preliminary Gram Positive Cocci Resulted 08/08/17 18:05 Blood Blood Culture - Preliminary Gram Positive Cocci Resulted 08/09/17 01:30 Sputum Expectorated Gram Stain - Final Complete 08/09/17 01:30 Sputum Expectorated Sputum Culture - Final Complete 08/08/17 18:05 Nasal Nares Influenza Types A,B Antigen (KATHI) - Final Complete 08/09/17 07:20 Stool Clostridium difficile Toxin Assay - Final Complete 08/08/17 18:05 Urine,Clean Catch Urine Culture - Preliminary Mixed Gram Positive Organism Resulted Objective HEAD AND NECK: Showed no JVD. LUNGS: Decreased breath sounds. CARDIOVASCULAR: Shows regular S1 and S2 with no gallop or murmur. ABDOMEN: Soft. EXTREMITIES: Have no pitting edema. OBED DONATO Aug 10, 2017 17:05
[2017-08-10 20:00] VITALS: BP 116/68
[2017-08-10] MEDS: Azithromycin 250 MG in NS 275 ML IV SCH (21:07)
--- NOTE | 2017-08-10 21:45 | Consultation ---
DATE OF CONSULTATION: 08/10/2017 SURGEON: Santana Sanders M.D., specialty in Thoracic Surgery. REFERRING PHYSICIAN: Harry Alarcon M.D. HISTORY OF PRESENT ILLNESS: The patient is a 57-year-old male with a history of HIV, who presented to [facility] with respiratory distress. Workup including a chest CT scan demonstrated a multiloculated left-sided pleural effusion associated with a lower lobe basilar pneumonia and Thoracic surgery was then consulted for further evaluation. PAST MEDICAL HISTORY: Notable for, 1. HIV. 2. Bilateral decreased hearing. 3. Gastroesophageal reflux. PAST SURGICAL HISTORY: 1. Splenectomy. 2. Left shoulder history. 3. Tonsillectomy. MEDICATIONS: Reviewed. ALLERGIES: The patient has no known drug allergies. FAMILY AND SOCIAL HISTORY: The patient is a resident from [place]. He lives alone in [place] and has an ex-partner, who takes care of him. He denied any tobacco or illicit drug use. PHYSICAL EXAMINATION: VITAL SIGNS: He is noted to be afebrile. His vitals are within normal limits. CARDIAC: Regular in rate and rhythm. No gallops or murmur. RESPIRATORY: Clear to auscultation on the right with decreased crackles on the left. ABDOMEN: Soft, nondistended, and nontender with normoactive bowel sounds. EXTREMITIES: Showed no evidence of cyanosis, clubbing, or edema. LABORATORY DATA: Laboratory studies performed on 08/10/2017 showed a white count of 17.3, hemoglobin 12, hematocrit of 36, and a platelet count of 323,000. Sodium is 135, potassium 3.4, chloride 102, bicarb 23, BUN 27, creatinine is 1.0, and glucose is 102. A chest CT scan was performed on 08/09/2017, which showed a moderate-sized multiloculated left-sided pleural effusion with consolidation of the left lower lobe. Abdomen and pelvis CT scan performed on 08/08/2017 showed a 2 to 3 mm nonobstructing stone in the left pole of the left kidney. There is an asymmetric increased perinephric straining around the left kidney suggestive of a recently passed stone versus pyelonephritis. ASSESSMENT AND PLAN: This is a 57-year-old male, who presented to [facility] with respiratory symptoms and the radiographic imaging studies suggestive of loculated pleural effusion. The patient was evaluated at the bedside. After reviewing his clinical database, I recommend that he undergo the left video-assisted thoracoscopic surgery for a washout. I want to thank you for referring this patient to my attention. If there are any questions in regards to this patient's clinical care, please do not hesitate to contact me. Narayanan M.D. DR: MAREK JOB#: [id number] CC:
[2017-08-11] VITALS: BP 104/61
[2017-08-11] MEDS: Vancomycin 1gm/D5W 275ml IVPB SCH ×6 (00:38→16:30)
[2017-08-11] MEDS ORDERED: Vancomycin 1gm/D5W 275ml IVPB SCH ×2 (01:00)
[2017-08-11 04:00] VITALS: BP 128/82
[2017-08-11 07:42] LABS: INR 1.1 (0.9-1.1)
[2017-08-11 08:00] VITALS: BP 108/53
[2017-08-11] MEDS: Heparin 5000 units/ml inj SUBQ SCH ×2 (08:39→20:22)
--- NOTE | 2017-08-11 11:44 | General Progress Note ---
Progress Note Progress Note Surgery: no acute events. leukocytosis improving. afebrile, HD stable, doing okay. Seen by Thoracic Surgery Dr. Sanders and VATS recommended/planned. Appreciate Dr. Sanders 's input and care for patient. I will be available if needed. Thank you for allowing me to participate in Mr. Peralta's care. Bk Avelar Aug 11, 2017 11:44
--- NOTE | 2017-08-11 11:46 | Nephrology Progress Note ---
Assessment/Plan Problem List: (1) CAP (community acquired pneumonia) (2) Pleural effusion on left (3) HIV (human immunodeficiency virus infection) (4) Sepsis Assessment: GPC in blood. (5) UTI (urinary tract infection) Plan abx per ID. Follow up cx's. appreciate pulmonary recs. Pending CTS eval. Subjective Subjective late entry for 08/10 - SOB better. Still has some cough. having low grade temp. Objective Objective Last 24 Hour Vital Signs Date Time Temp Pulse Resp B/P (MAP) Pulse Ox O2 Delivery O2 Flow Rate FiO2 08/11/17 09:45 98.7 08/11/17 08:43 100.2 08/11/17 08:00 100.2 87 20 108/53 95 Room Air 100.2 08/11/17 07:55 72 16 Room Air 21 08/11/17 04:00 98.5 98 23 128/82 94 Room Air 98.5 08/11/17 00:00 97.8 91 22 104/61 96 Room Air 97.8 08/10/17 21:27 100.9 08/10/17 20:00 100.9 91 21 116/68 96 Room Air 100.9 08/10/17 19:29 75 16 Room Air 21 08/10/17 16:00 97.0 83 26 112/53 95 Room Air 97.0 08/10/17 12:22 99.1 93 20 117/70 95 Room Air 99.1 Intake and Output 08/10/17 08/11/17 19:00 07:00 Intake Total 620 ml 500 ml Balance 620 ml 500 ml Intake Oral 620 ml 500 ml # Voids 4 2 Laboratory Tests 08/11/17 00:30: Vancomycin Level Trough 7.3 08/11/17 06:35: Prothrombin Time 12.0H, Prothromb Time International Ratio 1.1, Activated Partial Thromboplast Time 30 Height (Feet): 5 Height (Inches): 8.00 Weight (Pounds): 157 General Appearance: no apparent distress Cardiovascular: normal rate, regular rhythm Respiratory/Chest: decreased breath sounds Abdomen: non tender, soft Extremities: non-pitting Neurologic: alert, oriented x 3 CASTRO VAUGHAN Aug 11, 2017 11:46
[2017-08-11 12:00] VITALS: BP 111/56
--- NOTE | 2017-08-11 12:00 | Diagnostic Imaging Report ---
Indication: Cough, status post thoracentesis Technique: One view of the chest Comparison: [employer] image from chest CT dated 08/09/2017, prior chest radiograph dated 08/08/2017 Findings: No pneumothorax demonstrated. Left basilar pleural effusion appears similar to 08/08/2017 exam. The lobulated pleural component in the left upper hemithorax was not evident on the prior chest radiograph, but is visible on subsequent chest CT of 08/09/2017. Right lung and pleural space remain clear. Heart size is normal. Impression: No evidence of pneumothorax, post thoracentesis Left-sided pleural effusion, presumably multiloculated, appears unchanged from 08/09/[address]
[2017-08-11] MEDS: Cefepime HCl 2 GM in NS 55 ML IVPB SCH ×2 (12:40→22:41)
--- NOTE | 2017-08-11 13:41 | Pulmonology Progress Note ---
Assessment/Plan Problems: (1) CAP (community acquired pneumonia) (2) Pleural effusion on left Assessment & Plan: LOCULATED, likely para-pneumonic vs empyema (3) Sepsis (4) Acute pyelonephritis (5) HIV (human immunodeficiency virus infection) Assessment/Plan ASSESSMENT: * Febrile illness & sepsis, CAP with loculated effusion + UTI with PN * Multilobar CAP with loculated L sided effusion, parapneumonic effusion vs empyema * GPC sepsis * GPC UTI with PN * Marked leukocytosis 2/2 above * HIV with unknown CD4 count * [facility] PLAN: * Continue current antimicrobial therapy (Vanco, Cefepime, Azithro) per ID * F/U pleural fluid studies * Appreciate thoracic surgery evaluation, [facility] tommorrow for VATS * Optimize pulmonary hygiene/mobilize as tolerated * PRN O2 to keep SaO2 > 90% * PRN HHN's * PRN Robitussin * cART per ID, F/U CD4 count and VL * DVT Px: Hep SQ D/W ID and PMD Subjective Allergies: Coded Allergies: No Known Allergies (Unverified , 07/01/16) Subjective Tm 100.9 VSS, CT with multiloculated L sided effusion with infiltrate, S/P thora , seen by CTS & OCTO VATS tommorrow, no F/C, no SOB, + cough, no wheezing Objective Last 24 Hour Vital Signs Date Time Temp Pulse Resp B/P (MAP) Pulse Ox O2 Delivery O2 Flow Rate FiO2 08/11/17 09:45 98.7 08/11/17 08:43 100.2 08/11/17 08:00 100.2 87 20 108/53 95 Room Air 100.2 08/11/17 07:55 72 16 Room Air 21 08/11/17 04:00 98.5 98 23 128/82 94 Room Air 98.5 08/11/17 00:00 97.8 91 22 104/61 96 Room Air 97.8 08/10/17 21:27 100.9 08/10/17 20:00 100.9 91 21 116/68 96 Room Air 100.9 08/10/17 19:29 75 16 Room Air 21 08/10/17 16:00 97.0 83 26 112/53 95 Room Air 97.0 Intake and Output 08/10/17 08/11/17 19:00 07:00 Intake Total 620 ml 500 ml Balance 620 ml 500 ml Intake Oral 620 ml 500 ml # Voids 4 2 General Appearance: WD/WN, no acute distress HEENT: normocephalic, atraumatic, anicteric, mucous membranes moist Respiratory/Chest: chest wall non-tender, lungs clear, normal breath sounds, no respiratory distress, no accessory muscle use Cardiovascular: normal peripheral pulses, normal rate, regular rhythm Abdomen: normal bowel sounds, soft, non tender, no organomegaly, non distended , no mass Extremities: no cyanosis, no clubbing, no edema Microbiology Date/Time Source Procedure Growth Status 08/08/17 18:16 Blood Blood Culture - Final Streptococcus Pneumoniae Complete 08/08/17 18:05 Blood Blood Culture - Final Streptococcus Pneumoniae Complete 08/10/17 10:00 Sputum Expectorated Gram Stain - Final Resulted 08/10/17 10:00 Sputum Expectorated Sputum Culture Pending Resulted 08/09/17 01:30 Sputum Expectorated Gram Stain - Final Complete 08/09/17 01:30 Sputum Expectorated Sputum Culture - Final Complete 08/08/17 18:05 Nasal Nares Influenza Types A,B Antigen (KATHI) - Final Complete 08/09/17 07:20 Stool Clostridium difficile Toxin Assay - Final Complete 08/08/17 18:05 Urine,Clean Catch Urine Culture - Final Mixed Gram Positive Organism Complete Laboratory Tests 08/11/17 00:30: Vancomycin Level Trough 7.3 08/11/17 06:35: Prothrombin Time 12.0H, Prothromb Time International Ratio 1.1, Activated Partial Thromboplast Time 30 Current Medications Medications (Trade) Dose Ordered Sig/Bhavani Route PRN Reason Start Time Stop Time Status Last Admin Dose Admin Acetaminophen (Tylenol) 650 mg Q4H PRN ORAL Mild Pain (Pain Scale 1-3) 08/09/17 01:00 09/08/17 00:59 08/11/17 08:43 Acetaminophen/ Hydrocodone Bitart ([place] 10/325) 1 tab Q4H PRN ORAL Breakthrough Pain 08/09/17 01:00 08/16/17 00:59 Albuterol/ Ipratropium (Albuterol/ Ipratropium) 3 ml Q4HR PRN HHN Shortness of Breath 08/09/17 01:00 08/14/17 00:59 Azithromycin 250 mg/Sodium Chloride 275 ml @ 275 mls/hr Q24HRS IV 08/09/17 21:00 08/15/17 21:59 08/10/17 21:07 Cefepime HCl 2 gm/ Sodium Chloride 55 ml @ 110 mls/hr Q12H IVPB 08/08/17 23:00 08/15/17 23:59 08/11/17 12:40 Dextrose (Dextrose 50%) STAT PRN IV Hypoglycemia 08/09/17 01:00 09/08/17 00:59 Guaifenesin/ Dextromethorphan (Robitussin DM) 10 ml Q4H PRN ORAL For Cough 08/08/17 18:00 09/07/17 17:59 08/08/17 18:02 Heparin Sodium (Porcine) (Heparin 5000 units/ml) 5,000 units EVERY 12 HOURS SUBQ 08/09/17 09:00 09/08/17 08:59 08/11/17 08:39 Morphine Sulfate (Morphine Sulfate) 2 mg Q4HR PRN IVP Severe Pain (Pain Scale 7-10) 08/09/17 01:00 08/16/17 00:59 08/09/17 01:33 Ondansetron HCl (Zofran) 4 mg Q6H PRN IVP Nausea & Vomiting 08/09/17 01:00 09/08/17 00:59 Patient Own Medication (Patient's Own Med) 1 ea DAILY ORAL 08/09/17 16:00 09/08/17 15:59 08/11/17 08:42 Vancomycin HCl (Vanco rx to dose) 1 ea DAILY PRN MISC Per rx protocol 08/09/17 11:45 09/08/17 11:44 Vancomycin HCl 1 gm/Dextrose 275 ml @ 183.708 mls/hr Q8HR@0100,0900,1700 IVPB 08/11/17 09:00 08/16/17 08:59 08/11/17 08:46 ILENE UMAÑA M.D. Aug 11, 2017 13:40
--- NOTE | 2017-08-11 15:07 | Pre-Procedure Note/Attestation ---
Pre-Procedure Note/Attestation Complete Prior to Procedure Planned Procedure: left Procedure Narrative: US guided thoracentesis Indications for Procedure Pre-Operative Diagnosis: Pleural effusion Attestation I attest that I discussed the nature of the procedure; its benefits; risks and complications; and alternatives (and the risks and benefits of such alternatives ), prior to the procedure, with the patient (or the patient's legal dermatology sales representative). I attest that, if there was a reasonable possibility of needing a blood transfusion, the patient (or the patient's legal dermatology sales representative) was given the [facility] standardized written summary, pursuant to the Alfredo Nevin Blood Safety Act ([place] Health and Safety Code # 1645, as amended). I attest that I re-evaluated the patient just prior to the surgery and that there has been no change in the patient's H&P, except as documented below: CL MARTINES M.D. Aug 11, 2017 15:07
--- NOTE | 2017-08-11 15:24 | Infectious Diseases Prog Note ---
Assessment/Plan Problems: (1) CAP (community acquired pneumonia) Assessment & Plan: complicated with loculated pleural effusion, and sepsis due to invasive pneumococcal pneumonia , continue vancomycin, cefepime and zithromax empiric coverage , pending sputum culture. will need VATS for decortication of his left pleural , CT surgery is following (2) Pleural effusion on left Assessment & Plan: loculated, with possible empyema , due to invasive pneumococcal pneumonia infection of the lung , going for VATS and decortication of the left pleural space by CT surgery tomorrow (3) Sepsis Assessment & Plan: due to the above, with invasive streptococcus pneumonia , continue vancomycin and cefepime , for now, will repeat blood culture to confirm clearance, await 2D echo to rule out any vegetations (4) HIV (human immunodeficiency virus infection) Assessment & Plan: continue triumeq pending his viral load ad CD4 counts Subjective Constitutional: Reports: fatigue HEENT: Reports: no symptoms Respiratory: Reports: dry cough Breasts: Reports: no symptoms Cardiovascular: Reports: no symptoms Gastrointestinal/Abdominal: Reports: no symptoms Genitourinary: Reports: no symptoms Neurologic: Reports: weakness Psychiatric: Reports: no symptoms Skin: Reports: no symptoms Endocrine: Reports: no symptoms Hematologic: Reports: no symptoms Musculoskeletal: Reports: no symptoms Allergies: Coded Allergies: No Known Allergies (Unverified , 07/01/16) Objective Vital Signs Last 24 Hour Vital Signs Date Time Temp Pulse Resp B/P (MAP) Pulse Ox O2 Delivery O2 Flow Rate FiO2 08/11/17 12:00 97.6 71 18 111/56 95 Room Air 97.6 08/11/17 09:45 98.7 08/11/17 08:43 100.2 08/11/17 08:00 100.2 87 20 108/53 95 Room Air 100.2 08/11/17 07:55 72 16 Room Air 21 08/11/17 04:00 98.5 98 23 128/82 94 Room Air 98.5 08/11/17 00:00 97.8 91 22 104/61 96 Room Air 97.8 08/10/17 21:27 100.9 08/10/17 20:00 100.9 91 21 116/68 96 Room Air 100.9 08/10/17 19:29 75 16 Room Air 21 08/10/17 16:00 97.0 83 26 112/53 95 Room Air 97.0 Height (Feet): 5 Height (Inches): 8.00 Weight (Pounds): 157 General Appearance: WD/WN, no acute distress HEENT: normocephalic, atraumatic, anicteric, mucous membranes moist, PERRL Respiratory/Chest: chest wall non-tender, normal breath sounds, no respiratory distress, no accessory muscle use, decreased breath sounds, crackles/rales Cardiovascular: normal peripheral pulses, normal rate, regular rhythm, no gallop/murmur, no JVD Abdomen: normal bowel sounds, soft, non tender, no organomegaly, non distended , no mass, no scars Extremities: no cyanosis, no clubbing Skin: no rash, no lesions, no ulcers Neurologic/Psychiatric: alert, oriented x 3, responsive Lymphatic: no neck adenopathy, no groin adenopathy Microbiology Date/Time Source Procedure Growth Status 08/08/17 18:16 Blood Blood Culture - Final Streptococcus Pneumoniae Complete 08/08/17 18:05 Blood Blood Culture - Final Streptococcus Pneumoniae Complete 08/10/17 10:00 Sputum Expectorated Gram Stain - Final Resulted 08/10/17 10:00 Sputum Expectorated Sputum Culture Pending Resulted 08/09/17 01:30 Sputum Expectorated Gram Stain - Final Complete 08/09/17 01:30 Sputum Expectorated Sputum Culture - Final Complete 08/08/17 18:05 Nasal Nares Influenza Types A,B Antigen (KATHI) - Final Complete 08/09/17 07:20 Stool Clostridium difficile Toxin Assay - Final Complete 08/08/17 18:05 Urine,Clean Catch Urine Culture - Final Mixed Gram Positive Organism Complete Laboratory Tests Test 08/11/17 00:30 08/11/17 06:35 08/11/17 11:32 Vancomycin Level Trough 7.3 ug/mL (5.0-12.0) Prothrombin Time 12.0 SEC (9.30-11.50) H Prothromb Time International Ratio 1.1 (0.9-1.1) Activated Partial Thromboplast Time 30 SEC (23-33) Body Fluid Source Pending Body Fluid Volume Pending Body Fluid Appearance Pending Body Fluid RBC Pending Body Fluid Total Nucleated Cells Pending Body Fluid Polynuclear WBCs (%) Pending Body Fluid Mononuclear WBCs (%) Pending Body Fluid Mesothelial Cells (%) Pending Body Fluid Glucose Pending Body Fluid Total Protein Pending Body Fluid Lactate Dehydrogenase Pending Current Medications Medications (Trade) Dose Ordered Sig/Bhavani Route PRN Reason Start Time Stop Time Status Last Admin Dose Admin Acetaminophen (Tylenol) 650 mg Q4H PRN ORAL Mild Pain (Pain Scale 1-3) 08/09/17 01:00 09/08/17 00:59 08/11/17 08:43 Acetaminophen/ Hydrocodone Bitart ([place] 10/325) 1 tab Q4H PRN ORAL Breakthrough Pain 08/09/17 01:00 08/16/17 00:59 Albuterol/ Ipratropium (Albuterol/ Ipratropium) 3 ml Q4HR PRN HHN Shortness of Breath 08/09/17 01:00 08/14/17 00:59 Azithromycin 250 mg/Sodium Chloride 275 ml @ 275 mls/hr Q24HRS IV 08/09/17 21:00 08/15/17 21:59 08/10/17 21:07 Cefepime HCl 2 gm/ Sodium Chloride 55 ml @ 110 mls/hr Q12H IVPB 08/08/17 23:00 08/15/17 23:59 08/11/17 12:40 Dextrose (Dextrose 50%) STAT PRN IV Hypoglycemia 08/09/17 01:00 09/08/17 00:59 Guaifenesin/ Dextromethorphan (Robitussin DM) 10 ml Q4H PRN ORAL For Cough 08/08/17 18:00 09/07/17 17:59 08/08/17 18:02 Heparin Sodium (Porcine) (Heparin 5000 units/ml) 5,000 units EVERY 12 HOURS SUBQ 08/09/17 09:00 09/08/17 08:59 08/11/17 08:39 Morphine Sulfate (Morphine Sulfate) 2 mg Q4HR PRN IVP Severe Pain (Pain Scale 7-10) 08/09/17 01:00 08/16/17 00:59 08/09/17 01:33 Ondansetron HCl (Zofran) 4 mg Q6H PRN IVP Nausea & Vomiting 08/09/17 01:00 09/08/17 00:59 Patient Own Medication (Patient's Own Med) 1 ea DAILY ORAL 3/17/18 16:00 09/08/17 15:59 08/11/17 08:42 Vancomycin HCl (Vanco rx to dose) 1 ea DAILY PRN MISC Per rx protocol 08/09/17 11:45 09/08/17 11:44 Vancomycin HCl 1 gm/Dextrose 275 ml @ 183.708 mls/hr Q8HR@0100,0900,1700 IVPB 08/11/17 09:00 08/16/17 08:59 08/11/17 08:46 Marvin Bullock M.D. Aug 11, 2017 15:24
--- NOTE | 2017-08-11 15:58 | Diagnostic Imaging Report ---
Indications: Pleural effusion Technique: Ultrasound used to localize optimal puncture site. Sterile prepping and draping left chest. Local anesthesia with 1% lidocaine. Under real-time ultrasound guidance, puncture pleural space using thoracentesis needle. Stylet removed. Catheter placed to vacuum bottle suction. Total 20 milliliters of clear yellow fluid aspirated. Patient tolerated procedure well, without immediate complication. Findings: Followup sonography demonstrates resistance and probable loculation of pleural fluid Impression: Successful ultrasound-guided thoracentesis, yielding only 20 milliliters of fluid. Limited quantity of aspirated fluid likely reflects loculation suspected on the sonographic images as well as recent chest CT
[2017-08-11 16:00] VITALS: BP 120/71
[2017-08-11] MEDS: Azithromycin 250 MG in NS 275 ML IV SCH (20:16)
[2017-08-11 20:46] VITALS: BP 109/66
[2017-08-12] VITALS (16 sets, daily range): BP systolic 104–150; BP diastolic 54–76
[2017-08-12] MEDS: guaiFENesin DM 100mg/5ml ORAL PRN (01:06)
[2017-08-12] MEDS ORDERED: Vancomycin 1gm/D5W 275ml IVPB SCH ×4 (02:00→18:00)
[2017-08-12] MEDS ORDERED: Hydromorphone 0.5mg/0.5ml inj ONE (09:00)
[2017-08-12] MEDS ORDERED: LR 1000ml ONE (09:00)
[2017-08-12] MEDS ORDERED: Sterile Water For Irrig 2000ml IRRIG ONE (09:00)
[2017-08-12] MEDS ORDERED: NS Irrig 1000ml ONE (09:00)
[2017-08-12] MEDS ORDERED: Zemuron 50mg/5ml Inj IV ONE (09:00)
[2017-08-12] MEDS ORDERED: NS Irrig 4000ml IRRIG ONE (09:00)
[2017-08-12] MEDS ORDERED: fentaNYL 100 mcg/2 mL IV ONE (09:00)
--- NOTE | 2017-08-12 11:23 | Anethesia Preoperative Eval ---
Anesthesia Pre-op PMH/ROS General Date of Evaluation: Aug 12, 2017 Time of Evaluation: 11:00 Anesthesiologist: Yady ASA Score: ASA 3 Mallampati Score Class I : Soft palate, uvula, fauces, pillars visible Class II: Soft palate, uvula, fauces visible Class III: Soft palate, base of uvula visible Class IV: Only hard plate visible Mallampati Classification: Class II Surgeon: Tommy Diagnosis: Pneumonia-loculated pleural effusion on left, sepsis Surgical Procedure: VATS Family History: no anesthesia problems Allergies: Coded Allergies: No Known Allergies (Unverified , 07/01/16) Medications: see eMAR Past Medical History Cardiovascular: Denies: HTN, CAD, HI, valve dz, arrhythmia, other Pulmonary: Reports: other - Community acquired pneumonia, Denies: asthma, COPD, KALYN Gastrointestinal/Genitourinary: Reports: GERD, Denies: CRI, ESRD, other Endocrine: Denies: DM, hypothyroidism, steroids, other HEENT: Denies: cataract (L), cataract (R), glaucoma, [employer] (L), [employer] (R), other Hematology/Immune: Denies: anemia, DVT, bleeding disorder, other Musculoskeletal/Integumentary: Denies: OA, RA, DJD, DDD, edema, other PMH Narrative: HIV, GERD PSxH Narrative: T&A, shoulder, splenectomy Anesthesia Pre-op Phys. Exam Physician Exam Last Vital Signs Date Time Temp Pulse Resp B/P (MAP) Pulse Ox O2 Delivery O2 Flow Rate FiO2 08/12/17 08:00 98.2 75 21 104/74 97 98.2 08/12/17 07:40 Nasal Cannula 28 Constitutional: other - Labored breathing not requiring supplemental O2 Neurologic: CN 2-12 intact Cardiovascular: RRR, no M/R/G Respiratory: other Gastrointestinal: S/NT/ND Airway Exam Mallampati Score: Class II MO: full ROM: full Teeth: intact Anesthesia Pre-op A/P Studies Pre-op Studies: EKG, echo - SR, EF 55% Risk Assessment & Plan Assessment: HIV+ male with acute community acquired pneumonia and loculated effusion on left Plan: Double lumen ETT, one lung ventilation Status Change Before Surgery: No Pre-Antibiotics Drug: Patient on abx (Azithromycine, Vanco, Cefepime) CIERA GLYNN M.D. Aug 12, 2017 11:23
[2017-08-12] MEDS ORDERED: Lidocaine 1% Plain 30 ml INJ ONE ×2 (11:51→12:28)
[2017-08-12] MEDS ORDERED: Bupivacaine 0.5% Inj 30 ml vial INJ ONE (11:51)
[2017-08-12] MEDS ORDERED: Surgicel 4in x 8in TOPIC ONE (11:52)
--- NOTE | 2017-08-12 12:01 | Pre-Procedure Note/Attestation ---
Pre-Procedure Note/Attestation Complete Prior to Procedure Planned Procedure: left Procedure Narrative: Left loculated effusion Indications for Procedure Pre-Operative Diagnosis: Left loculated effusion Attestation I attest that I discussed the nature of the procedure; its benefits; risks and complications; and alternatives (and the risks and benefits of such alternatives ), prior to the procedure, with the patient (or the patient's legal sales solutions representative). I attest that, if there was a reasonable possibility of needing a blood transfusion, the patient (or the patient's legal sales solutions representative) was given the [facility] standardized written summary, pursuant to the Alfredo Nevin Blood Safety Act ([place] Health and Safety Code # 1645, as amended). I attest that I re-evaluated the patient just prior to the surgery and that there has been no change in the patient's H&P, except as documented below: ALONSO LORA M.D. Aug 12, 2017 12:01
[2017-08-12] MEDS ORDERED: Propofol 200mg/20ml IV ONE (12:06)
--- NOTE | 2017-08-12 12:08 | Nephrology Progress Note ---
Assessment/Plan Problem List: (1) CAP (community acquired pneumonia) (2) Pleural effusion on left (3) HIV (human immunodeficiency virus infection) (4) Sepsis Assessment: GPC in blood. (5) UTI (urinary tract infection) Plan Abx per ID. Follow up cx's. Appreciate pulmonary recs. CTS eval. CT showed multiloculated L sided effusion with infiltrate VATS tommorrow. Subjective Subjective late entry for 08/11 - Having low grade temp. 100.9 Objective Objective Last 24 Hour Vital Signs Date Time Temp Pulse Resp B/P (MAP) Pulse Ox O2 Delivery O2 Flow Rate FiO2 08/12/17 08:00 98.2 75 21 104/74 97 98.2 08/12/17 07:40 80 18 Nasal Cannula 28 08/12/17 04:25 98.1 75 18 110/57 95 98.1 08/12/17 04:00 95 Room Air 08/12/17 03:00 100.0 100.0 08/12/17 02:06 100.0 08/12/17 01:07 100.1 08/12/17 01:00 100.1 100.1 08/12/17 00:29 98.9 75 18 115/69 95 98.9 08/12/17 00:00 95 Room Air 08/11/17 20:46 99.1 80 17 109/66 95 99.1 08/11/17 20:00 95 Room Air 08/11/17 19:00 74 16 Room Air 21 08/11/17 16:48 100.2 08/11/17 16:00 100.2 83 18 120/71 97 Room Air 100.2 Intake and Output 08/11/17 08/12/17 19:00 07:00 Intake Total 500 ml Balance 500 ml Intake Oral 500 ml # Voids 4 3 Laboratory Tests 08/12/17 00:40: Vancomycin Level Trough 8.2 Height (Feet): 5 Height (Inches): 8.00 Weight (Pounds): 157 General Appearance: no apparent distress Cardiovascular: normal rate, regular rhythm Respiratory/Chest: decreased breath sounds Abdomen: non tender, soft Extremities: trace edema Neurologic: alert, oriented x 3 CASTRO VAUGHAN Aug 12, 2017 12:07
--- NOTE | 2017-08-12 12:08 | Nephrology Progress Note ---
Assessment/Plan Problem List: (1) CAP (community acquired pneumonia) (2) Pleural effusion on left (3) HIV (human immunodeficiency virus infection) (4) Sepsis Assessment: GPC in blood. (5) UTI (urinary tract infection) Plan Abx per ID. Follow up cx's. Appreciate pulmonary recs. CTS eval. CT showed multiloculated L sided effusion with infiltrate VATS tommorrow. Subjective Subjective in OR. Objective Objective Last 24 Hour Vital Signs Date Time Temp Pulse Resp B/P (MAP) Pulse Ox O2 Delivery O2 Flow Rate FiO2 08/12/17 08:00 98.2 75 21 104/74 97 98.2 08/12/17 07:40 80 18 Nasal Cannula 28 08/12/17 04:25 98.1 75 18 110/57 95 98.1 08/12/17 04:00 95 Room Air 08/12/17 03:00 100.0 100.0 08/12/17 02:06 100.0 08/12/17 01:07 100.1 08/12/17 01:00 100.1 100.1 08/12/17 00:29 98.9 75 18 115/69 95 98.9 08/12/17 00:00 95 Room Air 08/11/17 20:46 99.1 80 17 109/66 95 99.1 08/11/17 20:00 95 Room Air 08/11/17 19:00 74 16 Room Air 21 08/11/17 16:48 100.2 08/11/17 16:00 100.2 83 18 120/71 97 Room Air 100.2 Intake and Output 08/11/17 08/12/17 19:00 07:00 Intake Total 500 ml Balance 500 ml Intake Oral 500 ml # Voids 4 3 Laboratory Tests 08/12/17 00:40: Vancomycin Level Trough 8.2 Height (Feet): 5 Height (Inches): 8.00 Weight (Pounds): 157 CASTRO VAUGHAN Aug 12, 2017 12:08
[2017-08-12] MEDS ORDERED: Bupivacaine 0.25% Inj 30ml INJ ONE (12:28)
[2017-08-12] MEDS ORDERED: LR 1000ml 1,000 ML IVLG SCH (13:14)
[2017-08-12] MEDS ORDERED: Midazolam 2mg/2ml Inj IVP PRN (13:15)
[2017-08-12] MEDS ORDERED: Hydromorphone 0.5mg/0.5ml inj IVP PRN (13:15)
[2017-08-12] MEDS ORDERED: Meperidine 50mg/ml Inj(FOR RIGORS ONLY) IVP PRN (13:15)
[2017-08-12] MEDS ORDERED: DiphenhydrAMINE 50mg/ml Inj IVP PRN (13:15)
[2017-08-12] MEDS ORDERED: Bacitracin 50000 Units Vial IRRIG ONE (13:20)
--- NOTE | 2017-08-12 13:25 | Immediate Post-Op Evaluation ---
Immediate Post-Op Evalulation Immediate Post-Op Evalulation Procedure: VATS left lung Date of Evaluation: Aug 12, 2017 Time of Evaluation: 15:15 IV Fluids: 900 Estimated Blood Loss: 120 Blood Pressure Systolic: 150 Blood Pressure Diastolic: 64 Pulse Rate: 104 Respiratory Rate: 20 O2 Sat by Pulse Oximetry: 95 Temperature (Fahrenheit): 98.8 Pain Score (1-10): 0 Nausea: No Vomiting: No Complications No complication Patient Status: awake, patent, extubated, none Hydration Status: adequate Drug: Ancef Given Within 1 Hr of Incision: Yes Time Given: 12:25 CIERA GLYNN M.D. Aug 12, 2017 13:25
[2017-08-12] MEDS ORDERED: Morphine Sulfate 2mg/ml Inj IVP PRN ×2 (14:30→19:30)
--- NOTE | 2017-08-12 14:32 | Pulmonology Progress Note ---
Assessment/Plan Problems: (1) CAP (community acquired pneumonia) (2) Pleural effusion on left Assessment & Plan: LOCULATED, likely para-pneumonic vs empyema (3) Sepsis (4) Acute pyelonephritis (5) HIV (human immunodeficiency virus infection) Assessment/Plan ASSESSMENT: * Febrile illness & sepsis, CAP with loculated effusion + UTI with PN * Multilobar CAP with loculated L sided effusion, parapneumonic effusion vs empyema * GPC sepsis * GPC UTI with PN * Marked leukocytosis 2/2 above * HIV with unknown CD4 count * [facility] PLAN: * Continue current antimicrobial therapy (Vanco, Azithro) per ID * F/U pleural fluid studies * Appreciate thoracic surgery evaluation, OCTOR today for VATS * Optimize pulmonary hygiene/mobilize as tolerated * PRN O2 to keep SaO2 > 90% * PRN HHN's * PRN Robitussin * cART per ID, F/U CD4 count and VL * DVT Px: Hep SQ * To ICU post-op D/W THORACIC SURGER Subjective Allergies: Coded Allergies: No Known Allergies (Unverified , 07/01/16) Subjective Seen earlier, Tm 100.2, OCTOR, less SOB, + pain, + cough, no F/C Objective Last 24 Hour Vital Signs Date Time Temp Pulse Resp B/P (MAP) Pulse Ox O2 Delivery O2 Flow Rate FiO2 08/12/17 08:00 98.2 75 21 104/74 97 98.2 08/12/17 07:40 80 18 Nasal Cannula 28 08/12/17 04:25 98.1 75 18 110/57 95 98.1 08/12/17 04:00 95 Room Air 08/12/17 03:00 100.0 100.0 08/12/17 02:06 100.0 08/12/17 01:07 100.1 08/12/17 01:00 100.1 100.1 08/12/17 00:29 98.9 75 18 115/69 95 98.9 08/12/17 00:00 95 Room Air 08/11/17 20:46 99.1 80 17 109/66 95 99.1 08/11/17 20:00 95 Room Air 08/11/17 19:00 74 16 Room Air 21 08/11/17 16:48 100.2 08/11/17 16:00 100.2 83 18 120/71 97 Room Air 100.2 Intake and Output 08/11/17 08/12/17 19:00 07:00 Intake Total 500 ml Balance 500 ml Intake Oral 500 ml # Voids 4 3 General Appearance: WD/WN, no acute distress HEENT: normocephalic, atraumatic, anicteric, mucous membranes moist Respiratory/Chest: chest wall non-tender, lungs clear, normal breath sounds, no respiratory distress, no accessory muscle use Cardiovascular: normal peripheral pulses, normal rate, regular rhythm Abdomen: normal bowel sounds, soft, non tender, no organomegaly, non distended Extremities: no cyanosis, no clubbing, no edema Microbiology Date/Time Source Procedure Growth Status 08/10/17 10:00 Sputum Expectorated Gram Stain - Final Complete 08/10/17 10:00 Sputum Expectorated Sputum Culture - Final NORMAL UPPER RESPIRATORY DUSTIN PRESENT Complete Laboratory Tests 08/12/17 00:40: Vancomycin Level Trough 8.2 Current Medications Medications (Trade) Dose Ordered Sig/Bhavani Route PRN Reason Start Time Stop Time Status Last Admin Dose Admin Acetaminophen (Tylenol) 650 mg Q4H PRN ORAL Mild Pain (Pain Scale 1-3) 08/09/17 01:00 09/08/17 00:59 08/12/17 01:07 Acetaminophen/ Hydrocodone Bitart ([place] 10/325) 1 tab Q4H PRN ORAL Breakthrough Pain 08/09/17 01:00 08/16/17 00:59 Albuterol/ Ipratropium (Albuterol/ Ipratropium) 3 ml Q4HR PRN HHN Shortness of Breath 08/09/17 01:00 08/14/17 00:59 Azithromycin 250 mg/Sodium Chloride 275 ml @ 275 mls/hr Q24HRS IV 08/09/17 21:00 08/15/17 21:59 08/11/17 20:16 Cefepime HCl 2 gm/ Sodium Chloride 55 ml @ 110 mls/hr Q12H IVPB 08/08/17 23:00 08/15/17 23:59 08/11/17 22:41 Dextrose (Dextrose 50%) STAT PRN IV Hypoglycemia 08/09/17 01:00 09/08/17 00:59 Diphenhydramine HCl (Benadryl) 25 mg Q15M PRN IVP Itching 08/12/17 13:15 08/12/17 20:30 Guaifenesin/ Dextromethorphan (Robitussin DM) 10 ml Q4H PRN ORAL For Cough 08/08/17 18:00 09/07/17 17:59 08/12/17 01:06 Heparin Sodium (Porcine) (Heparin 5000 units/ml) 5,000 units EVERY 12 HOURS SUBQ 08/09/17 09:00 09/08/17 08:59 08/11/17 20:22 Hydromorphone HCl (Dilaudid) 0.5 mg Q15M PRN IVP Severe Pain (Pain Scale 7-10) 08/12/17 13:15 08/12/17 20:30 Lactated Ringer's 1,000 ml @ 10 mls/hr Q24H IVLG 08/12/17 13:14 08/12/17 20:30 Meperidine HCl (Demerol) 50 mg ONCE PRN IVP for rigors 08/12/17 13:15 08/12/17 20:30 Midazolam HCl (Versed 2mg/2ml vial) 1 mg Q15M PRN IVP For Anxiety 08/12/17 13:15 08/12/17 20:30 Morphine Sulfate (Morphine Sulfate) 2 mg Q4HR PRN IVP Severe Pain (Pain Scale 7-10) 08/09/17 01:00 08/16/17 00:59 08/09/17 01:33 Ondansetron HCl (Zofran) 4 mg Q1H PRN IVP Nausea & Vomiting 08/12/17 13:15 08/12/17 20:30 Ondansetron HCl (Zofran) 4 mg Q6H PRN IVP Nausea & Vomiting 08/09/17 01:00 09/08/17 00:59 Patient Own Medication (Patient's Own Med) 1 ea DAILY ORAL 08/09/17 16:00 09/08/17 15:59 08/12/17 08:39 Vancomycin HCl (Vanco rx to dose) 1 ea DAILY PRN MISC Per rx protocol 08/09/17 11:45 09/08/17 11:44 Vancomycin HCl 1 gm/Dextrose 275 ml @ 183.708 mls/hr Q6H IVPB 08/12/17 02:00 08/17/17 01:59 08/12/17 02:11 ILENE UMAÑA M.D. Aug 12, 2017 14:32
[2017-08-12] MEDS ORDERED: Bacitracin 50000 Units Vial ONE (15:42)
--- NOTE | 2017-08-12 15:49 | Diagnostic Imaging Report ---
Indication: Postoperative, status post thoracotomy and chest tube placement Technique: One view of the chest Comparison: 08/11/2017 Findings: Interim placement of a left chest tube. No pneumothorax. There is evidence of interim evacuation of previously demonstrated loculated pleural fluid. There is considerable atelectasis and consolidation at the left lung base, although this is probably not significantly increased from previously. There is probably also a component of residual pleural fluid and/or thickening. There is increased atelectasis at the right lung base. The heart size is normal. There are left upper quadrant surgical clips again demonstrated Impression: Postoperative changes, as described. Left chest tube in place. No pneumothorax Left basilar atelectasis and consolidation, probably not increased from preoperative exam Probable residual left basilar pleural fluid and/or thickening. Right basilar atelectasis has developed in the interim
[2017-08-12 16:01] LABS: HEMATOCRIT 34.1 % (42.0-52.0); HEMOGLOBIN 11.5 G/DL (14.2-18.0); MEAN CORPUSCULAR VOLUME 92 FL (80-99); PLATELET COUNT 494 K/UL (150-450); WHITE BLOOD COUNT 20.5 K/UL (4.8-10.8)
[2017-08-12 16:05] LABS: ANION GAP 7 mmol/L (5-15); BLOOD UREA NITROGEN 10 mg/dL (7-18); CALCIUM 7.7 MG/DL (8.5-10.1); CARBON DIOXIDE 31 MMOL/L (21-32); CHLORIDE 103 MMOL/L (98-107); CREATININE 0.7 MG/DL (0.55-1.30); PHOSPHORUS 4.3 MG/DL (2.5-4.9); POTASSIUM 3.4 MMOL/L (3.5-5.1); SODIUM 140 MMOL/L (136-145)
--- NOTE | 2017-08-12 17:17 | Cardiac Electrophysiology PN ---
Assessment/Plan Assessment/Plan 1. Pleural effusion. It could be due to pneumonia. The patient will be on IV antibiotics with vancomycin and azithromycin.S/P thoracoscopy and VATS and chest tube placement today State Director Dr Alarcon. Echocardiogram EF 55%. ECG NSR with no ischemia. 2. Human immunodeficiency virus. 3. Pyelonephritis, on IV antibiotics. 4. Difficulty hearing DW RN Subjective Subjective Just underwent Left VATS and chest tube placement and transferred to ICU. Objective Last 24 Hour Vital Signs Date Time Temp Pulse Resp B/P (MAP) Pulse Ox O2 Delivery O2 Flow Rate FiO2 08/12/17 15:45 98.6 95 20 125/56 98 Simple Mask 10.0 98.6 08/12/17 15:30 96 16 115/65 98 Simple Mask 10.0 08/12/17 15:20 97 12 122/63 98 Simple Mask 10.0 08/12/17 15:10 97 16 130/61 98 Simple Mask 10.0 08/12/17 15:05 94 17 144/65 98 Simple Mask 10.0 08/12/17 15:01 209.8 104 20 95 08/12/17 15:00 98.8 106 34 150/64 94 Simple Mask 6.0 98.8 08/12/17 08:00 98.2 75 21 104/74 97 98.2 08/12/17 07:40 80 18 Nasal Cannula 28 08/12/17 04:25 98.1 75 18 110/57 95 98.1 08/12/17 04:00 95 Room Air 08/12/17 03:00 100.0 100.0 08/12/17 02:06 100.0 08/12/17 01:07 100.1 08/12/17 01:00 100.1 100.1 08/12/17 00:29 98.9 75 18 115/69 95 98.9 08/12/17 00:00 95 Room Air 08/11/17 20:46 99.1 80 17 109/66 95 99.1 08/11/17 20:00 95 Room Air 08/11/17 19:00 74 16 Room Air 21 Intake and Output 08/11/17 08/12/17 19:00 07:00 Intake Total 500 ml Balance 500 ml Intake Oral 500 ml # Voids 4 3 Laboratory Tests Test 08/12/17 00:40 08/12/17 15:30 Vancomycin Level Trough 8.2 ug/mL (5.0-12.0) White Blood Count 20.5 K/UL (4.8-10.8) H Red Blood Count 3.70 M/UL (4.70-6.10) L Hemoglobin 11.5 G/DL (14.2-18.0) L Hematocrit 34.1 % (42.0-52.0) L Mean Corpuscular Volume 92 FL (80-99) Mean Corpuscular Hemoglobin 31.0 PG (27.0-31.0) Mean Corpuscular Hemoglobin Concent 33.7 G/DL (32.0-36.0) Red Cell Distribution Width 13.0 % (11.6-14.8) Platelet Count 494 K/UL (150-450) H Mean Platelet Volume 6.9 FL (6.5-10.1) Neutrophils (%) (Auto) % (45.0-75.0) Lymphocytes (%) (Auto) % (20.0-45.0) Monocytes (%) (Auto) % (1.0-10.0) Eosinophils (%) (Auto) % (0.0-3.0) Basophils (%) (Auto) % (0.0-2.0) Sodium Level 140 MMOL/L (136-145) Potassium Level 3.4 MMOL/L (3.5-5.1) L Chloride Level 103 MMOL/L (98-107) Carbon Dioxide Level 31 MMOL/L (21-32) Anion Gap 7 mmol/L (5-15) Blood Urea Nitrogen 10 mg/dL (7-18) Creatinine 0.7 MG/DL (0.55-1.30) Estimat Glomerular Filtration Rate > 60 mL/min (>60) Glucose Level 126 MG/DL (74-106) H Calcium Level 7.7 MG/DL (8.5-10.1) L Ionized Calcium (Measured) 0.95 mmol/L (1.10-1.35) L Phosphorus Level 4.3 MG/DL (2.5-4.9) Magnesium Level 1.8 MG/DL (1.8-2.4) Microbiology Date/Time Source Procedure Growth Status 08/10/17 10:00 Sputum Expectorated Gram Stain - Final Complete 08/10/17 10:00 Sputum Expectorated Sputum Culture - Final NORMAL UPPER RESPIRATORY DUSTIN PRESENT Complete Objective HEAD AND NECK: Showed no JVD. LUNGS: Decreased breath sounds on left with left chest tube in place. CARDIOVASCULAR: Shows regular S1 and S2 with no gallop or murmur. ABDOMEN: Soft. EXTREMITIES: Have no pitting edema. OBED DONATO Aug 12, 2017 17:17
[2017-08-12] MEDS ORDERED: HYDROcodone/Acetamin 10/325 tab ORAL PRN ×3 (17:45→19:30)
--- NOTE | 2017-08-12 17:52 | Cardiology Report ---
APPROVED REPORT EXAM: Two-dimensional and M-mode echocardiogram with Doppler and color Doppler. INDICATION Congestive Heart Failure M-Mode DIMENSIONS IVSd1.3 (0.7-1.1cm)Left Atrium (MM)4.0 (1.6-4.0cm) LVDd4.1 (3.5-5.6cm)Aortic Root2.6 (2.0-3.7cm) PWd1.0 (0.7-1.1cm)Aortic Cusp Exc.2.0 (1.5-2.0cm) LVDs1.7 (2.5-4.0cm) PWs1.8 cm Normal left ventricular chamber size, systolic function and wall motion. Left ventricular ejection fraction estimated to be 65-70 %. Mild left ventricular hypertrophy.. All other cardiac chamber sizes are within normal limits. Focal aortic valve sclerosis with adequate cusp excursion. Mildly thickened mitral valve leaflets with normal excursion. Mild mitral annulus and aortic root calcification. Normal pulmonic valve structure. Normal tricuspid valve structure. IVC is normal in size with physiological collapse. A color flow and spectral Doppler study was performed and revealed: Mild to moderate aortic insufficiency. Trace mitral regurgitation. reduced left ventricular relaxation c/w impaired relaxation diastolic dysfunction. Trace tricuspid regurgitation. Tricuspid systolic velocities suggests peak right ventricular systolic pressure of 17 mmHg. Trace pulmonic regurgitation present.
[2017-08-12] MEDS ORDERED: Norco 5mg/325mg tab ORAL PRN (18:30)
--- NOTE | 2017-08-12 18:32 | Infectious Diseases Prog Note ---
Assessment/Plan Problems: (1) CAP (community acquired pneumonia) Assessment & Plan: complicated with loculated pleural effusion, and sepsis due to invasive pneumococcal pneumonia , continue vancomycin, cefepime and zithromax empiric coverage , pending sputum culture. will need VATS for decortication of his left pleural , CT surgery is following (2) Pleural effusion on left Assessment & Plan: loculated, with possible empyema , due to invasive pneumococcal pneumonia infection of the lung , S/P VATS and decortication of the left pleural space with chest tube placement (3) Sepsis Assessment & Plan: due to the above, with invasive streptococcus pneumonia , continue vancomycin and cefepime , for now, pending repeated blood culture to confirm clearance, await 2D echo to rule out any vegetations (4) HIV (human immunodeficiency virus infection) Assessment & Plan: continue triumeq pending his viral load ad CD4 counts Subjective ROS Limited/Unobtainable: Yes Allergies: Coded Allergies: No Known Allergies (Unverified , 07/01/16) Subjective he came in from OR after he had VATS, now with chest tube in, complained of chest pain at the tube site , no fever or chills, no cough Objective Vital Signs Last 24 Hour Vital Signs Date Time Temp Pulse Resp B/P (MAP) Pulse Ox O2 Delivery O2 Flow Rate FiO2 08/12/17 18:00 88 117/62 94 Simple Mask 10.0 08/12/17 17:00 98 111/54 94 Simple Mask 10.0 08/12/17 15:45 98.6 95 20 125/56 98 Simple Mask 10.0 98.6 08/12/17 15:30 96 16 115/65 98 Simple Mask 10.0 08/12/17 15:20 97 12 122/63 98 Simple Mask 10.0 08/12/17 15:10 97 16 130/61 98 Simple Mask 10.0 08/12/17 15:05 94 17 144/65 98 Simple Mask 10.0 08/12/17 15:01 209.8 104 20 95 08/12/17 15:00 98.8 106 34 150/64 94 Simple Mask 6.0 98.8 08/12/17 08:00 98.2 75 21 104/74 97 98.2 08/12/17 07:40 80 18 Nasal Cannula 28 08/12/17 04:25 98.1 75 18 110/57 95 98.1 08/12/17 04:00 95 Room Air 08/12/17 03:00 100.0 100.0 08/12/17 02:06 100.0 08/12/17 01:07 100.1 08/12/17 01:00 100.1 100.1 08/12/17 00:29 98.9 75 18 115/69 95 98.9 08/12/17 00:00 95 Room Air 08/11/17 20:46 99.1 80 17 109/66 95 99.1 08/11/17 20:00 95 Room Air 08/11/17 19:00 74 16 Room Air 21 Height (Feet): 5 Height (Inches): 8.00 Weight (Pounds): 157 General Appearance: WD/WN, no acute distress HEENT: normocephalic, atraumatic, anicteric, mucous membranes moist, PERRL Respiratory/Chest: normal breath sounds, no respiratory distress, no accessory muscle use, decreased breath sounds, crackles/rales Cardiovascular: normal peripheral pulses, normal rate, regular rhythm, no gallop/murmur, no JVD Abdomen: normal bowel sounds, soft, non tender, no organomegaly, non distended , no mass, no scars Extremities: no cyanosis, no clubbing Skin: no rash, no lesions, no ulcers Neurologic/Psychiatric: alert, responsive Microbiology Date/Time Source Procedure Growth Status 08/10/17 10:00 Sputum Expectorated Gram Stain - Final Complete 08/10/17 10:00 Sputum Expectorated Sputum Culture - Final NORMAL UPPER RESPIRATORY DUSTIN PRESENT Complete Laboratory Tests Test 08/12/17 00:40 08/12/17 15:30 Vancomycin Level Trough 8.2 ug/mL (5.0-12.0) White Blood Count 20.5 K/UL (4.8-10.8) H Red Blood Count 3.70 M/UL (4.70-6.10) L Hemoglobin 11.5 G/DL (14.2-18.0) L Hematocrit 34.1 % (42.0-52.0) L Mean Corpuscular Volume 92 FL (80-99) Mean Corpuscular Hemoglobin 31.0 PG (27.0-31.0) Mean Corpuscular Hemoglobin Concent 33.7 G/DL (32.0-36.0) Red Cell Distribution Width 13.0 % (11.6-14.8) Platelet Count 494 K/UL (150-450) H Mean Platelet Volume 6.9 FL (6.5-10.1) Neutrophils (%) (Auto) % (45.0-75.0) Lymphocytes (%) (Auto) % (20.0-45.0) Monocytes (%) (Auto) % (1.0-10.0) Eosinophils (%) (Auto) % (0.0-3.0) Basophils (%) (Auto) % (0.0-2.0) Sodium Level 140 MMOL/L (136-145) Potassium Level 3.4 MMOL/L (3.5-5.1) L Chloride Level 103 MMOL/L (98-107) Carbon Dioxide Level 31 MMOL/L (21-32) Anion Gap 7 mmol/L (5-15) Blood Urea Nitrogen 10 mg/dL (7-18) Creatinine 0.7 MG/DL (0.55-1.30) Estimat Glomerular Filtration Rate > 60 mL/min (>60) Glucose Level 126 MG/DL (74-106) H Calcium Level 7.7 MG/DL (8.5-10.1) L Ionized Calcium (Measured) 0.95 mmol/L (1.10-1.35) L Phosphorus Level 4.3 MG/DL (2.5-4.9) Magnesium Level 1.8 MG/DL (1.8-2.4) Current Medications Medications (Trade) Dose Ordered Sig/Bhavani Route PRN Reason Start Time Stop Time Status Last Admin Dose Admin Acetaminophen (Tylenol) 650 mg Q4H PRN ORAL Mild Pain (Pain Scale 1-3) 08/09/17 01:00 09/08/17 00:59 08/12/17 01:07 Acetaminophen/ Hydrocodone Bitart ([place] 10/325) 1 tab Q4H PRN ORAL For Pain Level <=5 08/12/17 17:45 08/19/17 17:44 UNV Acetaminophen/ Hydrocodone Bitart ([place] 5/325) 1 tab Q4H PRN ORAL Moderate Pain (Pain Scale 4-6) 08/12/17 14:30 08/19/17 14:29 UNV Albuterol/ Ipratropium (Albuterol/ Ipratropium) 3 ml Q4HR PRN HHN Shortness of Breath 08/09/17 01:00 08/14/17 00:59 Azithromycin 250 mg/Sodium Chloride 275 ml @ 275 mls/hr Q24HRS IV 08/09/17 21:00 08/15/17 21:59 08/11/17 20:16 Cefepime HCl 2 gm/ Sodium Chloride 55 ml @ 110 mls/hr Q12H IVPB 08/08/17 23:00 08/15/17 23:59 08/11/17 22:41 Dextrose (Dextrose 50%) STAT PRN IV Hypoglycemia 08/09/17 01:00 09/08/17 00:59 Dextrose/ Electrolytes 1,000 ml @ 75 mls/hr [id number] IV 08/12/17 14:30 09/11/17 14:29 UNV Diphenhydramine HCl (Benadryl) 25 mg Q15M PRN IVP Itching 08/12/17 13:15 08/12/17 20:30 Docusate Sodium (Colace) 100 mg TWICE A DAY ORAL 08/12/17 18:00 09/11/17 17:59 UNV Heparin Sodium (Porcine) (Heparin 5000 units/ml) 5,000 units EVERY 12 HOURS SUBQ 08/12/17 21:00 09/11/17 20:59 UNV Lactated Ringer's 1,000 ml @ 10 mls/hr Q24H IVLG 08/12/17 13:14 08/12/17 20:30 Morphine Sulfate (Morphine Sulfate) 2 mg Q4HR PRN IVP Severe Pain (Pain Scale 7-10) 08/09/17 01:00 08/16/17 00:59 08/09/17 01:33 Ondansetron HCl (Zofran) 4 mg Q1H PRN IVP Nausea & Vomiting 08/12/17 13:15 08/12/17 20:30 Ondansetron HCl (Zofran) 4 mg Q6H PRN IVP Nausea & Vomiting 08/12/17 14:30 09/11/17 14:29 UNV Patient Own Medication (Patient's Own Med) 1 ea DAILY ORAL 08/09/17 16:00 09/08/17 15:59 08/12/17 08:39 Vancomycin HCl (Vanco rx to dose) 1 ea DAILY PRN MISC Per rx protocol 08/09/17 11:45 09/08/17 11:44 Vancomycin HCl 1 gm/Dextrose 275 ml @ 183.708 mls/hr Q6H IVPB 08/12/17 18:00 08/17/17 17:59 08/12/17 18:28 Marvin Bullock M.D. Aug 12, 2017 18:32
--- NOTE | 2017-08-12 18:48 | Cardiology Report ---
APPROVED REPORT EKG Measurement Heart [id number] MI [id number] Sinus tachycardia Possible Left atrial enlargement Cannot rule out Inferior infarct, age undetermined Abnormal ECG
[2017-08-12] MEDS ORDERED: Albuterol/Ipratropium 3ml neb HHN PRN (19:30)
[2017-08-12] MEDS ORDERED: Cefepime HCl 2 GM in NS 55 ML IVPB SCH (19:30)
[2017-08-12] MEDS: Vancomycin 1 GM in D5W 275 ML IVPB SCH ×2 (19:30→23:19)
[2017-08-12] MEDS ORDERED: D5 1/2NS w/KCl 20mEq 1,000 ML IV SCH ×2 (20:00)
--- NOTE | 2017-08-12 20:00 | Operative Note - Dictated ---
DATE OF OPERATION: 08/12/2017 SURGEON: Santana Sanders M.D., speciality in Thoracic Surgery. PREOPERATIVE DIAGNOSIS: Left loculated pleural effusion. POSTOPERATIVE DIAGNOSIS: Left loculated pleural effusion. PROCEDURE PERFORMED: 1. Flexible bronchoscopy. 2. Left video-assisted thoracoscopic surgery. 3. Intrapleural pneumolysis. 4. Partial pleurectomy. 5. Decortication. 6. Primary repair of left lower lobe parenchymal air leak. 7. Intercostal nerve block. ANESTHESIA: Double-lumen general anesthesia. INDICATION FOR PROCEDURE: The patient is a 57-year-old male with history of HIV, who presented to [facility] with respiratory embarrassment. Workup including a chest CT scan demonstrated a multiloculated pleural effusion. Thoracic Surgery was consulted for surgical intervention. After the risks and benefits of the proposed operation were explained to the patient in detail including, but not limited to, bleeding, infection, air leak, need for blood transfusion, anesthetic complication, and less than 1%. In addition, alternative versus no treatment options were also discussed. The patient fully understands the rationale behind the proposed operation with all questions answered to his satisfaction. DESCRIPTION OF PROCEDURE: After obtaining the informed consent, the patient was then brought to the operating room and placed in supine position and surgical time-out was performed. After induction of general anesthesia, EDUARDO hose stockings were placed. A flexible bronchoscope was introduced through the endotracheal tube. The trachea and nalini were inspected. The nalini was midline and sharp. The right tracheobronchial tree down to the subsegmental level was grossly normal and no endobronchial lesions were seen. Similarly, the left mainstem bronchus was intubated and no obvious endobronchial lesions were visualized at the subsegmental level. Minimal amount of mucopurulent secretions were lavaged and suctioned clear. The bronchoscope was pulled back and removed. The patient tolerated the procedure well with oxygen saturation greater than 96% throughout the procedure. Next, the patient was then placed in a right lateral decubitus position and prepped and draped in the usual sterile fashion. The patient also received preoperative intravenous antibiotics. A 1.5 cm incision was made at the fifth intercostal space mid axillary line. Dissection was then carried down into the subcutaneous tissue. Entering into the left hemithorax was uneventful. A counter incision was made anterior to the midaxillary line. This allowed the introduction of grasper into the left hemithorax. Initial passing of Yankeur suction into the left hemithorax yielded roughly 300 mL of serous fluid and a community relations representative section of this fluid was submitted for left pleural effusion 1 and 2. After suctioning out the pleural effusion, we then proceeded to break down loculations located in the shop and alteration tailor lateral chest cavity. The lung was then mobilized from the surrounding chest wall using a combination of sharp and blunt electrocauterization. After lysing the adhesions, we then proceeded to examine the posterior lateral pleura, which appears to be unusually thickened. A small piece of the parietal pleura was undertaken and submitted off the field; half of the parietal pleura was submitted for microbiologic analysis and the remaining was submitted for permanent section. At this point, there was noted to be a very thin film of visceral peel over the upper as well as the lower lobe. A decortication process was begun beginning in the anterior surface and carried posterolaterally. After decorticating the entire left lung, the chest was irrigated with 5 liters of warm saline solution. After suctioning, we then proceeded to irrigate the chest with another 5 liters of bacitracin saline solution. After assuring hemostasis, the lung was then examined and there was noted to be a small area of parenchymal air leak secondary to the mobilization of the left lower lobe from the chest wall. This area was then reapproximated using a 4-0 Prolene in a running fashion. At the end of the procedure, intercostal nerve block with 40 mL of 0.25% Marcaine was performed from the 2nd to 8th intercostal space in the usual fashion. A 28-Uzbek chest tube was inserted into the left hemithorax until at the apex. The chest tube was anchored at the skin level using 0 Ethibond sutures x2 and then connected to a suction Pleur-evac. The lung was allowed to inflate under direct visualization and the video camera was then removed. The wound was then reapproximated with 2 layers of 3-0 Vicryl suture. The skin was reapproximated with 4-0 Monocryl. Steri-Strips and dry dressing were applied. The patient tolerated the procedure well without any complications. Needle and sponges were correct at the end of the operation. He was then extubated and transported to the recovery room in a satisfactory condition. ESTIMATED BLOOD LOSS: Minimal. COMPLICATIONS: None. SPECIMEN SUBMITTED: 1. Left pleural effusion #1 and #2 for microbiologic analysis. 2. Pleural exudate for microbiologic analysis. 3. Parietal pleura for microbiologic analysis and permanent section. Santana Mcfadden M.D. DR: Sivakumar JOB#: [id number] CC: KINGSLEY
[2017-08-12] MEDS: Cefepime HCl 2 GM in NS 55 ML IVPB SCH (20:02)
[2017-08-12] MEDS: Docusate 100mg cap ORAL SCH (21:00)
[2017-08-12] MEDS ORDERED: Docusate 100mg cap ORAL SCH (21:00)
[2017-08-12] MEDS ORDERED: Azithromycin 250 MG in NS 275 ML IV SCH (21:00)
[2017-08-12] MEDS ORDERED: Heparin 5000 units/ml inj SUBQ SCH (21:00)
[2017-08-12] MEDS: Heparin 5000 units/ml inj SUBQ SCH (21:00)
[2017-08-12] MEDS: Norco 5mg/325mg tab ORAL PRN ×2 (21:22→23:26)
[2017-08-12] MEDS ORDERED: ceFAZolin sod 1 GM in D5W 55 ML IV SCH (22:00)
[2017-08-13] VITALS (15 sets, daily range): BP systolic 104–132; BP diastolic 51–71
[2017-08-13] MEDS: Cefepime HCl 2 GM in NS 55 ML IVPB SCH ×2 (05:06→18:18)
[2017-08-13] MEDS: Vancomycin 1 GM in D5W 275 ML IVPB SCH ×3 (05:07→18:17)
[2017-08-13] MEDS: Norco 5mg/325mg tab ORAL PRN (06:07)
--- NOTE | 2017-08-13 08:01 | Pulmonolgy Critical Care Note ---
Critical Care - Asmt/Plan Problems: (1) Streptococcal bacteremia (2) Empyema lung (3) Pleural effusion on left (4) UTI (urinary tract infection) (5) Acute pyelonephritis (6) Sepsis (7) HIV (human immunodeficiency virus infection) (8) Pneumonia Assessment/Plan: PNA and empyema S/P L VATS decortication 08/12/17 S pneumo bacteremia UTI and PN SIRS/sepsis HIV Respiratory: adjust FIO2 - Titrate down to keep Sao2 > 90%, CXR, other - Monitor CT OP, CWS, IS, CTS post-op recs, pain control/supportive care, pulm hygiene/mobilize, HHN's Cardiac: continue to monitor HR/BP Renal: F/U I&O, keep IV fluid Infectious Disease: check cultures, continue antibiotics - Azithro, Cefepime, Vanco per ID Gastrointestinal: other - CLD, ADAT Neurologic: keep patient comfortable Prophylaxis: Heparin Disposition: transfer to - [facility] Time Spent (Minutes): 30 Notes Reviewed: icu registered nurse, renal, ID, other - CTS Discussed with: nurses, consultants Critical Care - Objective Last 24 Hour Vital Signs Date Time Temp Pulse Resp B/P (MAP) Pulse Ox O2 Delivery O2 Flow Rate FiO2 08/13/17 07:00 71 19 108/60 94 Simple Mask 10.0 08/13/17 06:00 77 19 114/71 94 Simple Mask 10.0 08/13/17 05:00 72 32 114/51 95 Simple Mask 10.0 08/13/17 04:00 98.7 71 23 107/58 96 Simple Mask 10.0 98.7 08/13/17 03:00 69 22 107/61 99 Simple Mask 10.0 08/13/17 02:00 67 27 112/63 100 Simple Mask 10.0 08/13/17 01:00 69 18 104/60 98 Simple Mask 10.0 08/13/17 00:58 99.2 08/13/17 00:00 100.2 77 25 104/60 97 Simple Mask 10.0 100.2 08/12/17 23:59 99.7 08/12/17 23:00 94 33 115/71 97 Simple Mask 10.0 08/12/17 22:00 93 25 116/63 99 Simple Mask 10.0 08/12/17 21:00 94 25 114/76 99 Simple Mask 10.0 08/12/17 20:00 94 22 104/71 95 Simple Mask 10.0 08/12/17 19:30 94 16 Room Air 21 08/12/17 19:00 82 116/58 97 Simple Mask 10.0 08/12/17 18:00 88 117/62 94 Simple Mask 10.0 08/12/17 17:00 98 111/54 94 Simple Mask 10.0 08/12/17 15:45 98.6 95 20 125/56 98 Simple Mask 10.0 98.6 08/12/17 15:30 96 16 115/65 98 Simple Mask 10.0 08/12/17 15:20 97 12 122/63 98 Simple Mask 10.0 08/12/17 15:10 97 16 130/61 98 Simple Mask 10.0 08/12/17 15:05 94 17 144/65 98 Simple Mask 10.0 08/12/17 15:01 209.8 104 20 95 08/12/17 15:00 98.8 106 34 150/64 94 Simple Mask 6.0 98.8 08/12/17 08:00 98.2 75 21 104/74 97 98.2 Status: awake Condition: improving HEENT: atraumatic, normocephalic Lungs: clear, other - CT to CWW Heart: HR/BP stable Abdomen: soft, non-tender, active bowel sounds Extremities: no C/C/E Micro: Microbiology Date/Time Source Procedure Growth Status 08/10/17 10:00 Sputum Expectorated Gram Stain - Final Complete 08/10/17 10:00 Sputum Expectorated Sputum Culture - Final NORMAL UPPER RESPIRATORY DUSTIN PRESENT Complete Critical Care - Subjective ROS Limited/Unobtainable: Yes ICU Day: 1 Intubation Day: N/A Interval Events: S/P L VATS decort Pain well controlled, Tm 102, george CLD Condition: improving IV Access: peripheral EKG Rhythm: Sinus Rhythm FI02: 21 Sputum Amount: None I&O: Intake and Output 08/12/17 08/13/17 19:00 07:00 Intake Total 1000 ml 876.208 ml Output Total 158 ml 900 ml Balance 842 ml -23.792 ml Intake Oral 280 ml IV Total 1000 ml 596.208 ml Output Urine Total 900 ml Estimated Blood Loss 120 ml Other 38 ml # Voids 2 Subjective: Pain well controlled, + strong cough, less SOB, no wheezing, no F/C ILENE UMAÑA M.D. Aug 13, 2017 08:01
--- NOTE | 2017-08-13 08:29 | 48 Hour Post Anesthesia Eval ---
Post Anesthesia Evaluation Procedure: VATS left lung Date of Evaluation: Aug 13, 2017 Time of Evaluation: 07:00 Blood Pressure Systolic: 108 0: 60 Pulse Rate: 71 Respiratory Rate: 19 Temperature (Fahrenheit): 98.7 O2 Sat by Pulse Oximetry: 94 Airway: patent Nausea: No Vomiting: No Pain Intensity: 2 Hydration Status: adequate Cardiopulmonary Status: at baseline Mental Status/LOC: patient returned to baseline Post-Anesthesia Complications: 0 Follow-up care needed: N/A - further care as per primary team VALENTIN VARELA M.D. Aug 13, 2017 08:29
[2017-08-13 08:54] LABS: BASOPHILS % (AUTO) 0.5 % (0.0-2.0); EOSINOPHILS % (AUTO) 3.5 % (0.0-3.0); HEMATOCRIT 30.1 % (42.0-52.0); HEMOGLOBIN 10.2 G/DL (14.2-18.0); LYMPHOCYTES % (AUTO) 8.5 % (20.0-45.0); MEAN CORPUSCULAR VOLUME 92 FL (80-99); MONOCYTES % (AUTO) 7.3 % (1.0-10.0); NEUTROPHILS % (AUTO) 80.2 % (45.0-75.0); PLATELET COUNT 518 K/UL (150-450); RED BLOOD COUNT 3.27 M/UL (4.70-6.10); RED CELL DISTRIBUTION WIDTH 13.3 % (11.6-14.8); WHITE BLOOD COUNT 15.7 K/UL (4.8-10.8)
[2017-08-13] MEDS ORDERED: TRIUMEQ ORAL SCH (09:00)
[2017-08-13 09:27] LABS: ANION GAP 10 mmol/L (5-15); BLOOD UREA NITROGEN 11 mg/dL (7-18); CALCIUM 7.4 MG/DL (8.5-10.1); CARBON DIOXIDE 28 MMOL/L (21-32); CHLORIDE 99 MMOL/L (98-107); CREATININE 0.7 MG/DL (0.55-1.30); POTASSIUM 3.5 MMOL/L (3.5-5.1); SODIUM 136 MMOL/L (136-145)
[2017-08-13 09:29] LABS: ALANINE AMINOTRANSFERASE 93 U/L (12-78); ALBUMIN 1.6 G/DL (3.4-5.0); ALBUMIN/GLOBULIN RATIO 0.3 (1.0-2.7); ALKALINE PHOSPHATASE 71 U/L (46-116); ANION GAP 7 mmol/L (5-15); ASPARTATE AMINO TRANSFERASE 76 U/L (15-37); BILIRUBIN,TOTAL 0.6 MG/DL (0.2-1.0); BLOOD UREA NITROGEN 11 mg/dL (7-18); CALCIUM 7.4 MG/DL (8.5-10.1); CARBON DIOXIDE 28 MMOL/L (21-32); CHLORIDE 100 MMOL/L (98-107); CREATININE 0.8 MG/DL (0.55-1.30); POTASSIUM 3.3 MMOL/L (3.5-5.1); SODIUM 135 MMOL/L (136-145)
[2017-08-13] MEDS: Docusate 100mg cap ORAL SCH ×2 (09:39→18:00)
[2017-08-13] MEDS: Heparin 5000 units/ml inj SUBQ SCH ×2 (09:41→20:53)
[2017-08-13] MEDS ORDERED: Albuterol/Ipratropium 3ml neb HHN PRN (11:30)
[2017-08-13] MEDS ORDERED: Morphine Sulfate 2mg/ml Inj IVP PRN (11:30)
[2017-08-13] MEDS ORDERED: Norco 5mg/325mg tab ORAL PRN (11:30)
--- NOTE | 2017-08-13 12:23 | Diagnostic Imaging Report ---
Indication: Dyspnea Technique: One view of the chest Comparison: 08/12/2017 Findings: Left chest tube remains in place. There is no pneumothorax. There is slightly increased opacity at the left lung base. There is slightly better aeration at the right lung base. Surgical clips again demonstrated in the left upper quadrant Impression: Slightly improved right basilar aeration with decreased the persistent parenchymal atelectasis and possible consolidation Slightly increased left basilar opacity, may reflect increasing pleural and/or parenchymal disease. No pneumothorax
[2017-08-13] MEDS: HYDROcodone/Acetamin 10/325 tab ORAL PRN (13:21)
--- NOTE | 2017-08-13 13:25 | Infectious Diseases Prog Note ---
Assessment/Plan Problems: (1) CAP (community acquired pneumonia) Assessment & Plan: complicated with loculated pleural effusion, and sepsis due to invasive pneumococcal pneumonia , continue vancomycin, cefepime and zithromax empiric coverage , pending sputum culture. S/P VATS and decortication of his left pleural space , CT surgery is following . monitor CXR (2) Pleural effusion on left Assessment & Plan: loculated, with possible empyema , due to invasive pneumococcal pneumonia infection of the lung , S/P VATS and decortication of the left pleural space with chest tube placement (3) Sepsis Assessment & Plan: due to the above, with invasive streptococcus pneumonia , continue vancomycin and cefepime , for now, pending repeated blood culture to confirm clearance, await 2D echo to rule out any vegetations (4) HIV (human immunodeficiency virus infection) Assessment & Plan: continue triumeq pending his viral load ad CD4 counts. follow up with HIV provider as an out patient Subjective Constitutional: Reports: no symptoms HEENT: Reports: no symptoms Respiratory: Reports: dry cough Cardiovascular: Reports: chest pain Gastrointestinal/Abdominal: Reports: no symptoms Genitourinary: Reports: no symptoms Neurologic: Reports: no symptoms Psychiatric: Reports: no symptoms Skin: Reports: no symptoms Endocrine: Reports: no symptoms Hematologic: Reports: no symptoms Musculoskeletal: Reports: no symptoms Allergies: Coded Allergies: No Known Allergies (Unverified , 07/01/16) Subjective he was complaining of left side chest pain at the chest tube site which was 8 out of 10 , no fever or chills, had mild cough, but no phlegm Objective Vital Signs Last 24 Hour Vital Signs Date Time Temp Pulse Resp B/P (MAP) Pulse Ox O2 Delivery O2 Flow Rate FiO2 08/13/17 12:00 98.9 82 24 107/71 95 Room Air 98.9 08/13/17 11:00 87 31 116/63 94 Room Air 08/13/17 10:00 85 30 106/60 93 Room Air 08/13/17 09:00 86 30 126/66 94 Room Air 08/13/17 08:30 90 28 Room Air 21 08/13/17 08:29 209.7 71 19 94 08/13/17 08:04 74 08/13/17 08:00 98.5 77 26 105/60 94 Room Air 98.5 08/13/17 07:00 71 19 108/60 94 Simple Mask 10.0 08/13/17 06:00 77 19 114/71 94 Simple Mask 10.0 08/13/17 05:00 72 32 114/51 95 Simple Mask 10.0 08/13/17 04:00 98.7 71 23 107/58 96 Simple Mask 10.0 98.7 08/13/17 03:00 69 22 107/61 99 Simple Mask 10.0 08/13/17 02:00 67 27 112/63 100 Simple Mask 10.0 08/13/17 01:00 69 18 104/60 98 Simple Mask 10.0 08/13/17 00:58 99.2 08/13/17 00:00 100.2 77 25 104/60 97 Simple Mask 10.0 100.2 08/12/17 23:59 99.7 08/12/17 23:00 94 33 115/71 97 Simple Mask 10.0 08/12/17 22:00 93 25 116/63 99 Simple Mask 10.0 08/12/17 21:00 94 25 114/76 99 Simple Mask 10.0 08/12/17 20:00 94 22 104/71 95 Simple Mask 10.0 08/12/17 19:30 94 16 Room Air 21 08/12/17 19:00 82 116/58 97 Simple Mask 10.0 08/12/17 18:00 88 117/62 94 Simple Mask 10.0 08/12/17 17:00 98 111/54 94 Simple Mask 10.0 08/12/17 15:45 98.6 95 20 125/56 98 Simple Mask 10.0 98.6 08/12/17 15:30 96 16 115/65 98 Simple Mask 10.0 08/12/17 15:20 97 12 122/63 98 Simple Mask 10.0 08/12/17 15:10 97 16 130/61 98 Simple Mask 10.0 08/12/17 15:05 94 17 144/65 98 Simple Mask 10.0 08/12/17 15:01 209.8 104 20 95 08/12/17 15:00 98.8 106 34 150/64 94 Simple Mask 6.0 98.8 Height (Feet): 5 Height (Inches): 8.00 Weight (Pounds): 157 General Appearance: WD/WN, no acute distress HEENT: normocephalic, atraumatic, anicteric, mucous membranes moist Respiratory/Chest: chest wall non-tender, no respiratory distress, no accessory muscle use, decreased breath sounds, crackles/rales Cardiovascular: normal peripheral pulses, normal rate, regular rhythm, no gallop/murmur, no JVD Abdomen: normal bowel sounds, soft, non tender, no organomegaly, non distended , no mass, no scars Extremities: no cyanosis, no clubbing Skin: no rash, no lesions, no ulcers Neurologic/Psychiatric: alert, responsive Laboratory Tests Test 08/12/17 15:30 08/13/17 04:00 08/13/17 05:20 08/13/17 08:30 White Blood Count 20.5 K/UL (4.8-10.8) H 15.7 K/UL (4.8-10.8) H Red Blood Count 3.70 M/UL (4.70-6.10) L 3.27 M/UL (4.70-6.10) L Hemoglobin 11.5 G/DL (14.2-18.0) L 10.2 G/DL (14.2-18.0) L Hematocrit 34.1 % (42.0-52.0) L 30.1 % (42.0-52.0) L Mean Corpuscular Volume 92 FL (80-99) 92 FL (80-99) Mean Corpuscular Hemoglobin 31.0 PG (27.0-31.0) 31.3 PG (27.0-31.0) H Mean Corpuscular Hemoglobin Concent 33.7 G/DL (32.0-36.0) 34.0 G/DL (32.0-36.0) Red Cell Distribution Width 13.0 % (11.6-14.8) 13.3 % (11.6-14.8) Platelet Count 494 K/UL (150-450) H 518 K/UL (150-450) H Mean Platelet Volume 6.9 FL (6.5-10.1) 6.7 FL (6.5-10.1) Neutrophils (%) (Auto) % (45.0-75.0) 80.2 % (45.0-75.0) H Lymphocytes (%) (Auto) % (20.0-45.0) 8.5 % (20.0-45.0) L Monocytes (%) (Auto) % (1.0-10.0) 7.3 % (1.0-10.0) Eosinophils (%) (Auto) % (0.0-3.0) 3.5 % (0.0-3.0) H Basophils (%) (Auto) % (0.0-2.0) 0.5 % (0.0-2.0) Sodium Level 140 MMOL/L (136-145) 136 MMOL/L (136-145) 135 MMOL/L (136-145) L Potassium Level 3.4 MMOL/L (3.5-5.1) L 3.5 MMOL/L (3.5-5.1) 3.3 MMOL/L (3.5-5.1) L Chloride Level 103 MMOL/L (98-107) 99 MMOL/L (98-107) 100 MMOL/L (98-107) Carbon Dioxide Level 31 MMOL/L (21-32) 28 MMOL/L (21-32) 28 MMOL/L (21-32) Anion Gap 7 mmol/L (5-15) 10 mmol/L (5-15) 7 mmol/L (5-15) Blood Urea Nitrogen 10 mg/dL (7-18) 11 mg/dL (7-18) 11 mg/dL (7-18) Creatinine 0.7 MG/DL (0.55-1.30) 0.7 MG/DL (0.55-1.30) 0.8 MG/DL (0.55-1.30) Estimat Glomerular Filtration Rate > 60 mL/min (>60) > 60 mL/min (>60) > 60 mL/min (>60) Glucose Level 126 MG/DL (74-106) H 122 MG/DL (74-106) H 124 MG/DL (74-106) H Calcium Level 7.7 MG/DL (8.5-10.1) L 7.4 MG/DL (8.5-10.1) L 7.4 MG/DL (8.5-10.1) L Ionized Calcium (Measured) 0.95 mmol/L (1.10-1.35) L 1.02 mmol/L (1.10-1.35) L Phosphorus Level 4.3 MG/DL (2.5-4.9) Magnesium Level 1.8 MG/DL (1.8-2.4) Total Bilirubin 0.6 MG/DL (0.2-1.0) Aspartate Amino Transf (AST/SGOT) 76 U/L (15-37) H Alanine Aminotransferase (ALT/SGPT) 93 U/L (12-78) H Alkaline Phosphatase 71 U/L (46-116) Total Protein 6.2 G/DL (6.4-8.2) L Albumin 1.6 G/DL (3.4-5.0) L Globulin 4.6 g/dL Albumin/Globulin Ratio 0.3 (1.0-2.7) L Current Medications Medications (Trade) Dose Ordered Sig/Bhavani Route PRN Reason Start Time Stop Time Status Last Admin Dose Admin Acetaminophen (Tylenol) 650 mg Q4H PRN ORAL Mild Pain (Pain Scale 1-2) 08/13/17 12:00 09/08/17 19:59 Acetaminophen/ Hydrocodone Bitart ([place] 10/325) 1 tab Q4H PRN ORAL For Pain Level 5-6 08/13/17 11:30 08/19/17 19:29 Acetaminophen/ Hydrocodone Bitart ([place] 5/325) 1 tab Q4H PRN ORAL Moderate Pain Scale 3-4 08/13/17 11:30 08/19/17 19:29 Albuterol/ Ipratropium (Albuterol/ Ipratropium) 3 ml Q4H PRN HHN Shortness of Breath 08/13/17 11:30 08/17/17 19:29 Azithromycin 250 mg/Sodium Chloride 275 ml @ 275 mls/hr Q24HRS IV 08/13/17 21:00 08/15/17 21:01 Cefepime HCl 2 gm/ Sodium Chloride 55 ml @ 110 mls/hr Q12HR@0600,1800 IVPB 08/13/17 18:00 08/19/17 19:29 Dextrose (Dextrose 50%) STAT PRN IV Hypoglycemia 08/13/17 19:30 09/11/17 19:29 Docusate Sodium (Colace) 100 mg TWICE A DAY ORAL 08/13/17 18:00 09/11/17 20:59 Heparin Sodium (Porcine) (Heparin 5000 units/ml) 5,000 units EVERY 12 HOURS SUBQ 08/13/17 21:00 09/11/17 20:59 Morphine Sulfate (Morphine Sulfate) 2 mg Q4H PRN IVP Severe Pain (Pain Scale 7-10) 08/13/17 11:30 08/19/17 19:29 Ondansetron HCl (Zofran) 4 mg Q6H PRN IVP Nausea & Vomiting 08/13/17 13:30 09/11/17 19:29 Patient Own Medication (Patient's Own Med) 1 ea DAILY ORAL 08/14/17 09:00 09/08/17 15:59 Vancomycin HCl (Vanco rx to dose) 1 ea DAILYPRN PRN MISC Per rx protocol 08/13/17 19:30 09/11/17 19:29 Vancomycin HCl 1 gm/Dextrose 275 ml @ 183.708 mls/hr Q6HR IVPB 08/13/17 13:00 08/17/17 12:59 Marvin Bullock M.D. Aug 13, 2017 13:25
[2017-08-13 18:08] LABS: % IRON SATURATION 12 % (15-50); IRON 14 ug/dL (50-175); TOTAL IRON BINDING CAPACITY 116 ug/dL (250-450)
--- NOTE | 2017-08-13 18:08 | Cardiac Electrophysiology PN ---
Assessment/Plan Assessment/Plan 1. Pleural effusion. It could be due to pneumonia. The patient will be on IV antibiotics with vancomycin and azithromycin.S/P thoracoscopy and VATS and chest tube placement 08/12/[address] Alarcon. Echocardiogram EF 55%. ECG NSR with no ischemia. 2. Human immunodeficiency virus. 3. Pyelonephritis, on IV antibiotics. 4. Difficulty hearing DW RN Subjective Subjective Left VATS chest tube still connected to continuous suction Objective Last 24 Hour Vital Signs Date Time Temp Pulse Resp B/P (MAP) Pulse Ox O2 Delivery O2 Flow Rate FiO2 08/13/17 16:00 99.2 81 21 114/63 95 Room Air 99.2 08/13/17 12:00 98.9 82 24 107/71 95 Room Air 98.9 08/13/17 11:00 87 31 116/63 94 Room Air 08/13/17 10:00 85 30 106/60 93 Room Air 08/13/17 09:00 86 30 126/66 94 Room Air 08/13/17 08:30 90 28 Room Air 21 08/13/17 08:29 209.7 71 19 94 08/13/17 08:04 74 08/13/17 08:00 98.5 77 26 105/60 94 Room Air 98.5 08/13/17 07:00 71 19 108/60 94 Simple Mask 10.0 08/13/17 06:00 77 19 114/71 94 Simple Mask 10.0 08/13/17 05:00 72 32 114/51 95 Simple Mask 10.0 08/13/17 04:00 98.7 71 23 107/58 96 Simple Mask 10.0 98.7 08/13/17 03:00 69 22 107/61 99 Simple Mask 10.0 08/13/17 02:00 67 27 112/63 100 Simple Mask 10.0 08/13/17 01:00 69 18 104/60 98 Simple Mask 10.0 08/13/17 00:58 99.2 08/13/17 00:00 100.2 77 25 104/60 97 Simple Mask 10.0 100.2 08/12/17 23:59 99.7 08/12/17 23:00 94 33 115/71 97 Simple Mask 10.0 08/12/17 22:00 93 25 116/63 99 Simple Mask 10.0 08/12/17 21:00 94 25 114/76 99 Simple Mask 10.0 08/12/17 20:00 94 22 104/71 95 Simple Mask 10.0 08/12/17 19:30 94 16 Room Air 21 08/12/17 19:00 82 116/58 97 Simple Mask 10.0 Intake and Output 08/12/17 08/13/17 19:00 07:00 Intake Total 1000 ml 951.208 ml Output Total 158 ml 970 ml Balance 842 ml -18.792 ml Intake Oral 280 ml IV Total 1000 ml 671.208 ml Output Urine Total 900 ml Chest Tube Drainage Total 70 ml Estimated Blood Loss 120 ml Other 38 ml # Voids 2 Laboratory Tests Test 08/13/17 04:00 08/13/17 05:20 08/13/17 08:30 08/13/17 17:00 Sodium Level 136 MMOL/L (136-145) 135 MMOL/L (136-145) L Potassium Level 3.5 MMOL/L (3.5-5.1) 3.3 MMOL/L (3.5-5.1) L Chloride Level 99 MMOL/L (98-107) 100 MMOL/L (98-107) Carbon Dioxide Level 28 MMOL/L (21-32) 28 MMOL/L (21-32) Anion Gap 10 mmol/L (5-15) 7 mmol/L (5-15) Blood Urea Nitrogen 11 mg/dL (7-18) 11 mg/dL (7-18) Creatinine 0.7 MG/DL (0.55-1.30) 0.8 MG/DL (0.55-1.30) Estimat Glomerular Filtration Rate > 60 mL/min (>60) > 60 mL/min (>60) Glucose Level 122 MG/DL (74-106) H 124 MG/DL (74-106) H Calcium Level 7.4 MG/DL (8.5-10.1) L 7.4 MG/DL (8.5-10.1) L Ionized Calcium (Measured) 1.02 mmol/L (1.10-1.35) L Total Bilirubin 0.6 MG/DL (0.2-1.0) Pending Aspartate Amino Transf (AST/SGOT) 76 U/L (15-37) H Alanine Aminotransferase (ALT/SGPT) 93 U/L (12-78) H Alkaline Phosphatase 71 U/L (46-116) Total Protein 6.2 G/DL (6.4-8.2) L Albumin 1.6 G/DL (3.4-5.0) L Globulin 4.6 g/dL Albumin/Globulin Ratio 0.3 (1.0-2.7) L White Blood Count 15.7 K/UL (4.8-10.8) H Red Blood Count 3.27 M/UL (4.70-6.10) L Hemoglobin 10.2 G/DL (14.2-18.0) L Hematocrit 30.1 % (42.0-52.0) L Mean Corpuscular Volume 92 FL (80-99) Mean Corpuscular Hemoglobin 31.3 PG (27.0-31.0) H Mean Corpuscular Hemoglobin Concent 34.0 G/DL (32.0-36.0) Red Cell Distribution Width 13.3 % (11.6-14.8) Platelet Count 518 K/UL (150-450) H Mean Platelet Volume 6.7 FL (6.5-10.1) Neutrophils (%) (Auto) 80.2 % (45.0-75.0) H Lymphocytes (%) (Auto) 8.5 % (20.0-45.0) L Monocytes (%) (Auto) 7.3 % (1.0-10.0) Eosinophils (%) (Auto) 3.5 % (0.0-3.0) H Basophils (%) (Auto) 0.5 % (0.0-2.0) Reticulocyte Count Pending Haptoglobin Pending Fibrinogen 743 mg/dL (200-400) H Iron Level Pending Unsaturated Iron Binding Pending Soluble Transferrin Receptor Pending Ferritin Pending Lactate Dehydrogenase Pending Vitamin B12 Level Pending Methylmalonic Acid Pending Folate Pending Thyroid Stimulating Hormone (TSH) Pending Vancomycin Level Trough 17.8 ug/mL (5.0-12.0) H Objective HEAD AND NECK: Showed no JVD. LUNGS: Decreased breath sounds on left with left chest tube in place. CARDIOVASCULAR: Shows regular S1 and S2 with no gallop or murmur. ABDOMEN: Soft. EXTREMITIES: No pitting edema. OBED DONATO Aug 13, 2017 18:07
[2017-08-13 18:15] LABS: BILIRUBIN,TOTAL 0.6 MG/DL (0.2-1.0); FERRITIN 1789 NG/ML (8-388); LACTATE DEHYDROGENASE 177 U/L (81-234)
--- NOTE | 2017-08-13 20:18 | Cardiology Report ---
APPROVED REPORT EKG Measurement Heart [id number] Normal sinus rhythm Normal ECG
[2017-08-13] MEDS: Azithromycin 250 MG in NS 275 ML IV SCH (20:58)
--- NOTE | 2017-08-13 23:07 | Nephrology Progress Note ---
Assessment/Plan Problem List: (1) CAP (community acquired pneumonia) (2) Pleural effusion on left (3) HIV (human immunodeficiency virus infection) (4) Sepsis Assessment: GPC in blood. (5) UTI (urinary tract infection) Plan Abx per ID. Follow up cx's. S/p VATS. f/u recs per C CTS. Subjective Subjective s/p left VATS. chest tube in place. Objective Objective Last 24 Hour Vital Signs Date Time Temp Pulse Resp B/P (MAP) Pulse Ox O2 Delivery O2 Flow Rate FiO2 08/13/17 20:54 99.1 98 18 132/69 93 99.1 08/13/17 19:16 84 20 Room Air 08/13/17 16:00 99.2 81 21 114/63 95 Room Air 99.2 08/13/17 12:00 98.9 82 24 107/71 95 Room Air 98.9 08/13/17 11:00 87 31 116/63 94 Room Air 08/13/17 10:00 85 30 106/60 93 Room Air 08/13/17 09:00 86 30 126/66 94 Room Air 08/13/17 08:30 90 28 Room Air 21 08/13/17 08:29 209.7 71 19 94 08/13/17 08:04 74 08/13/17 08:00 98.5 77 26 105/60 94 Room Air 98.5 08/13/17 07:00 71 19 108/60 94 Simple Mask 10.0 08/13/17 06:00 77 19 114/71 94 Simple Mask 10.0 08/13/17 05:00 72 32 114/51 95 Simple Mask 10.0 08/13/17 04:00 98.7 71 23 107/58 96 Simple Mask 10.0 98.7 08/13/17 03:00 69 22 107/61 99 Simple Mask 10.0 08/13/17 02:00 67 27 112/63 100 Simple Mask 10.0 08/13/17 01:00 69 18 104/60 98 Simple Mask 10.0 08/13/17 00:58 99.2 08/13/17 00:00 100.2 77 25 104/60 97 Simple Mask 10.0 100.2 08/12/17 23:59 99.7 Intake and Output 08/12/17 08/13/17 19:00 07:00 Intake Total 1000 ml 951.208 ml Output Total 158 ml 970 ml Balance 842 ml -18.792 ml Intake Oral 280 ml IV Total 1000 ml 671.208 ml Output Urine Total 900 ml Chest Tube Drainage Total 70 ml Estimated Blood Loss 120 ml Other 38 ml # Voids 2 Laboratory Tests 08/13/17 04:00: Sodium Level 136, Potassium Level 3.5, Chloride Level 99, Carbon Dioxide Level 28, Anion Gap 10, Blood Urea Nitrogen 11, Creatinine 0.7, Estimat Glomerular Filtration Rate > 60, Glucose Level 122H, Calcium Level 7.4L 08/13/17 05:20: Sodium Level 135L, Potassium Level 3.3L, Chloride Level 100, Carbon Dioxide Level 28, Anion Gap 7, Blood Urea Nitrogen 11, Creatinine 0.8, Estimat Glomerular Filtration Rate > 60, Glucose Level 124H, Calcium Level 7.4L, Ionized Calcium (Measured) 1.02L, Total Bilirubin 0.6, Aspartate Amino Transf ( AST/SGOT) 76H, Alanine Aminotransferase (ALT/SGPT) 93H, Alkaline Phosphatase 71 , Total Protein 6.2L, Albumin 1.6L, Globulin 4.6, Albumin/Globulin Ratio 0.3L 08/13/17 08:30: White Blood Count 15.7H, Red Blood Count 3.27L, Hemoglobin 10.2L, Hematocrit 30.1L, Mean Corpuscular Volume 92, Mean Corpuscular Hemoglobin 31.3H, Mean Corpuscular Hemoglobin Concent 34.0, Red Cell Distribution Width 13.3, Platelet Count 518H, Mean Platelet Volume 6.7, Neutrophils (%) (Auto) 80.2H, Lymphocytes (%) (Auto) 8.5L, Monocytes (%) (Auto) 7.3, Eosinophils (%) (Auto) 3.5H, Basophils (%) (Auto) 0.5, Differential Total Cells Counted 100, Neutrophils % ( Manual) 70, Lymphocytes % (Manual) 13L, Monocytes % (Manual) 9, Eosinophils % ( Manual) 7H, Basophils % (Manual) 0, Band Neutrophils 1, Platelet Estimate IncreasedH, Platelet Morphology Normal, Hypochromasia 1+, Anisocytosis 1+ 08/13/17 17:00: Total Bilirubin 0.6, Reticulocyte Count 1.4, Haptoglobin [Pending], Fibrinogen 743H, Iron Level 14L, Total Iron Binding Capacity 116L, Percent Iron Saturation 12L, Unsaturated Iron Binding 102L, Soluble Transferrin Receptor [Pending], Ferritin 1789H, Lactate Dehydrogenase 177, Vitamin B12 Level 476, Methylmalonic Acid [Pending], Folate 11.4, Thyroid Stimulating Hormone (TSH) 0.717, Vancomycin Level Trough 17.8H Height (Feet): 5 Height (Inches): 8.00 Weight (Pounds): 157 General Appearance: no apparent distress Cardiovascular: normal rate, regular rhythm Respiratory/Chest: decreased breath sounds Abdomen: non tender, soft Extremities: trace edema Neurologic: alert CASTRO VAUGHAN Aug 13, 2017 23:07
[2017-08-14 00:03] VITALS: BP 130/72
[2017-08-14] MEDS: Vancomycin 1 GM in D5W 275 ML IVPB SCH ×5 (00:25→23:52)
[2017-08-14 04:00] VITALS: BP 123/72
[2017-08-14] MEDS: Cefepime HCl 2 GM in NS 55 ML IVPB SCH ×2 (05:11→17:08)
--- NOTE | 2017-08-14 05:30 | Consultation ---
DATE OF CONSULTATION: 08/13/2017 HEMATOLOGY/ONCOLOGY CONSULTATION CONSULTING PHYSICIAN: Wayne Ortiz M.D. REQUESTING PHYSICIAN: Remy Thurman M.D. REASON FOR CONSULTATION: Evaluation of anemia and leukocytosis. IDENTIFYING DATA: Dear Dr. Thurman, The patient is a pleasant 57-year-old male with past medical history significant for HIV, viral load is pending, outpatient management, at this time presents with pleural effusion, has been seen by Pulmonary team for the last four weeks, has more worsening shortness of breath, noted to have left-sided infiltrate/effusion, also UTI. CT scan of the abdomen and pelvis showed a loculated effusion at left base, started on cefepime and vancomycin was added, currently has been seen by ID service, noted to have ongoing anemia. Therefore, Hematology Service was consulted for further evaluation and treatment. PAST MEDICAL HISTORY: HIV, on ART. SOCIAL HISTORY: No alcohol, tobacco, or illicit drug use. FAMILY HISTORY: Noncontributory. MEDICATIONS: Motrin, Ultram and Triumeq. ALLERGIES: No known drug allergies. REVIEW OF SYSTEMS: CONSTITUTIONAL: No fevers, chills, or night sweats. SKIN: No rashes, bumps, or itching. HEENT: No headache, hearing or vision changes. BREASTS: No lumps, pain, or discharge. PULMONARY: No cough, sputum, or shortness of breath. GASTROINTESTINAL: No nausea, vomiting, or diarrhea. GENITOURINARY: No dysuria, frequency, or urgency. MUSCULOSKELETAL: No joint swelling, muscle pain, or trauma. PHYSICAL EXAMINATION: VITAL SIGNS: Reviewed. GENERAL: No distress. PULMONARY: Decreased breath sounds. CARDIOVASCULAR: Regular rate. No S3 or S4. ABDOMEN: Soft, nontender, and nondistended. EXTREMITIES: No cyanosis, swelling, or edema. LABORATORY AND DIAGNOSTIC DATA: WBC 3.7, hemoglobin 10.3, hematocrit 30, and platelet count 518,000. ASSESSMENT AND RECOMMENDATIONS: 1. Anemia of chronic disease. Continue to closely monitor. Likely anemia is related to chronic disease. It does not appear that decreased likely it is a chronic issue with the patient's HIV and unknown viral count, poorly controlled in addition to pneumonia. 2. Leukocytosis, likely secondary to pneumonia. CT Surgery following in addition to decortication pending. 3. Pleural effusion the patient is status post VATS, decortication and chest tube placement. 4. Sepsis secondary to streptococcus, on broad-spectrum antibiotics. 5. Urinary tract infection. 6. Human immunodeficiency virus/Acquired immunodeficiency syndrome. Wayne Ortiz M.D. DR: DEMETRA JOB#: [id number] CC:
[2017-08-14 07:28] LABS: BASOPHILS % (AUTO) 0.7 % (0.0-2.0); EOSINOPHILS % (AUTO) 6.3 % (0.0-3.0); HEMATOCRIT 30.6 % (42.0-52.0); HEMOGLOBIN 10.3 G/DL (14.2-18.0); LYMPHOCYTES % (AUTO) 12.1 % (20.0-45.0); MEAN CORPUSCULAR VOLUME 92 FL (80-99); NEUTROPHILS % (AUTO) 72.9 % (45.0-75.0); PLATELET COUNT 627 K/UL (150-450); RED BLOOD COUNT 3.32 M/UL (4.70-6.10); WHITE BLOOD COUNT 11.9 K/UL (4.8-10.8)
[2017-08-14 07:33] LABS: ANION GAP 5 mmol/L (5-15); CALCIUM 7.5 MG/DL (8.5-10.1); CARBON DIOXIDE 31 MMOL/L (21-32); CHLORIDE 101 MMOL/L (98-107); CREATININE 0.7 MG/DL (0.55-1.30); POTASSIUM 3.4 MMOL/L (3.5-5.1); SODIUM 137 MMOL/L (136-145)
[2017-08-14 07:46] LABS: BLOOD UREA NITROGEN 7 mg/dL (7-18)
[2017-08-14 08:00] VITALS: BP 119/66
[2017-08-14] MEDS: Docusate 100mg cap ORAL SCH ×2 (09:11→17:08)
[2017-08-14] MEDS: Heparin 5000 units/ml inj SUBQ SCH ×2 (09:13→20:26)
--- NOTE | 2017-08-14 09:13 | Pulmonology Progress Note ---
Assessment/Plan Problems: (1) CAP (community acquired pneumonia) (2) Pleural effusion on left Assessment & Plan: LOCULATED, likely para-pneumonic vs empyema (3) Sepsis (4) Acute pyelonephritis (5) HIV (human immunodeficiency virus infection) Assessment/Plan ASSESSMENT: * Febrile illness & sepsis, CAP/empyema + UTI with PN * Multilobar CAP with loculated L sided effusion/empyema S/P L VATS decortication 08/12/17, * GPC sepsis * GPC UTI with PN * Marked leukocytosis 2/2 above - IMPROVED * HIV with unknown CD4 count * Anemai, likely AoCD * [place] PLAN: * CXR * Continue CT to CWS, F/U CTS recs * Pain control/supportive care * IS * Continue current antimicrobial therapy (Vanco, Azithro, Cefepime) per ID * F/U OR Path * Optimize pulmonary hygiene/mobilize as tolerated * PRN O2 to keep SaO2 > 90% * PRN HHN's * PRN Robitussin * cART per ID, F/U CD4 count and VL * DVT Px: Hep SQ * Dispo planning: pt requesting SW assistance D/W RN @ bedside D/W THORACIC SURGER Subjective Allergies: Coded Allergies: No Known Allergies (Unverified , 07/01/16) Subjective POD 2, Tm 100.6, VSS, stable on RA, WCt better, CT 82 Less SOB, CP better, + strong cough, no wheezing, no F/C Renate PO, no NV Objective Last 24 Hour Vital Signs Date Time Temp Pulse Resp B/P (MAP) Pulse Ox O2 Delivery O2 Flow Rate FiO2 08/14/17 08:00 98.3 83 19 119/66 95 Room Air 98.3 08/14/17 04:00 98.5 80 19 123/72 95 98.5 08/14/17 04:00 95 Room Air 08/14/17 00:32 98.8 98.8 08/14/17 00:03 100.6 94 20 130/72 93 100.6 08/14/17 00:00 93 Room Air 08/13/17 20:54 99.1 98 18 132/69 93 99.1 08/13/17 20:00 95 Room Air 08/13/17 19:16 84 20 Room Air 08/13/17 16:00 99.2 81 21 114/63 95 Room Air 99.2 08/13/17 12:00 98.9 82 24 107/71 95 Room Air 98.9 08/13/17 11:00 87 31 116/63 94 Room Air 08/13/17 10:00 85 30 106/60 93 Room Air Intake and Output 08/13/17 08/14/17 19:00 07:00 Intake Total 969 ml 720 ml Output Total 962 ml 500 ml Balance 7 ml 220 ml Intake Oral 800 ml 720 ml IV Total 169 ml Output Urine Total 950 ml 500 ml Chest Tube Drainage Total 12 ml # Voids 4 General Appearance: WD/WN, no acute distress HEENT: normocephalic, anicteric Respiratory/Chest: chest wall non-tender, lungs clear, normal breath sounds, no respiratory distress, other - L CT Cardiovascular: normal peripheral pulses, normal rate, regular rhythm Abdomen: normal bowel sounds, soft, non tender, no organomegaly, non distended Extremities: no cyanosis, no clubbing, no edema Laboratory Tests 08/13/17 17:00: Reticulocyte Count 1.4, Haptoglobin [Pending], Fibrinogen 743H, Iron Level 14L, Total Iron Binding Capacity 116L, Percent Iron Saturation 12L, Unsaturated Iron Binding 102L, Soluble Transferrin Receptor [Pending], Ferritin 1789H, Total Bilirubin 0.6, Lactate Dehydrogenase 177, Vitamin B12 Level 476, Methylmalonic Acid [Pending], Folate 11.4, Thyroid Stimulating Hormone (TSH) 0.717, Vancomycin Level Trough 17.8H 08/14/17 06:20: White Blood Count 11.9H, Red Blood Count 3.32L, Hemoglobin 10.3L, Hematocrit 30.6L, Mean Corpuscular Volume 92, Mean Corpuscular Hemoglobin 31.2H, Mean Corpuscular Hemoglobin Concent 33.9, Red Cell Distribution Width 13.0, Platelet Count 627H, Mean Platelet Volume 6.4L, Neutrophils (%) (Auto) 72.9, Lymphocytes (%) (Auto) 12.1L, Monocytes (%) (Auto) 8.0, Eosinophils (%) (Auto) 6.3H, Basophils (%) (Auto) 0.7, Sodium Level 137, Potassium Level 3.4L, Chloride Level 101, Carbon Dioxide Level 31, Anion Gap 5, Blood Urea Nitrogen 7, Creatinine 0.7, Estimat Glomerular Filtration Rate > 60, Glucose Level 128H, Calcium Level 7.5L Current Medications Medications (Trade) Dose Ordered Sig/Bhavani Route PRN Reason Start Time Stop Time Status Last Admin Dose Admin Acetaminophen (Tylenol) 650 mg Q4H PRN ORAL Mild Pain (Pain Scale 1-2) 08/13/17 12:00 09/08/17 19:59 Acetaminophen/ Hydrocodone Bitart ([place] 10/325) 1 tab Q4H PRN ORAL For Pain Level 5-6 08/13/17 11:30 08/19/17 19:29 08/13/17 13:21 Acetaminophen/ Hydrocodone Bitart ([place] 5/325) 1 tab Q4H PRN ORAL Moderate Pain Scale 3-4 08/13/17 11:30 08/19/17 19:29 Albuterol/ Ipratropium (Albuterol/ Ipratropium) 3 ml Q4H PRN HHN Shortness of Breath 08/13/17 11:30 08/17/17 19:29 Azithromycin 250 mg/Sodium Chloride 275 ml @ 275 mls/hr Q24HRS IV 08/13/17 21:00 08/15/17 21:01 08/13/17 20:58 Cefepime HCl 2 gm/ Sodium Chloride 55 ml @ 110 mls/hr Q12HR@0600,1800 IVPB 08/13/17 18:00 08/19/17 19:29 08/14/17 05:11 Dextrose (Dextrose 50%) STAT PRN IV Hypoglycemia 08/13/17 19:30 09/11/17 19:29 Docusate Sodium (Colace) 100 mg TWICE A DAY ORAL 08/13/17 18:00 09/11/17 20:59 Heparin Sodium (Porcine) (Heparin 5000 units/ml) 5,000 units EVERY 12 HOURS SUBQ 08/13/17 21:00 09/11/17 20:59 08/13/17 20:53 Morphine Sulfate (Morphine Sulfate) 2 mg Q4H PRN IVP Severe Pain (Pain Scale 7-10) 08/13/17 11:30 08/19/17 19:29 08/14/17 00:54 Ondansetron HCl (Zofran) 4 mg Q6H PRN IVP Nausea & Vomiting 08/13/17 13:30 09/11/17 19:29 Patient Own Medication (Patient's Own Med) 1 ea DAILY ORAL 08/14/17 09:00 09/08/17 15:59 Vancomycin HCl (Vanco rx to dose) 1 ea DAILYPRN PRN MISC Per rx protocol 08/13/17 19:30 09/11/17 19:29 Vancomycin HCl 1 gm/Dextrose 275 ml @ 183.708 mls/hr Q6HR IVPB 08/13/17 13:00 08/17/17 12:59 08/14/17 06:06 ILENE UMAÑA M.D. Aug 14, 2017 09:13
[2017-08-14 12:00] VITALS: BP 126/82
--- NOTE | 2017-08-14 12:00 | Diagnostic Imaging Report ---
Indication: Shortness of breath Technique: One view of the chest Comparison: 08/13/2017 Findings: Left chest tube remains. No gross pneumothorax. Pleural and parenchymal opacities in the left hemithorax persist, unchanged. The right lung appears somewhat better aerated, previously demonstrated basilar atelectasis has improved. Impression: Improved aeration of the right lung base. Otherwise, little change advisor one day, findings as noted
[2017-08-14 16:00] VITALS: BP 118/78
--- NOTE | 2017-08-14 16:19 | Cardiac Electrophysiology PN ---
Assessment/Plan Assessment/Plan 1. Pleural effusion. It could be due to pneumonia. On IV antibiotics with vancomycin and azithromycin. S/P thoracoscopy and VATS and chest tube placement 08/12/[address] Alarcon. Echocardiogram EF 55%. ECG NSR with no ischemia. 2. Human immunodeficiency virus. 3. Pyelonephritis, on IV antibiotics. 4. Difficulty hearing DW RN Subjective Subjective Left VATS chest tube still connected to continuous suction. Was SOB earlier and was reevaluated by Dr Alarcon. Off tele Objective Last 24 Hour Vital Signs Date Time Temp Pulse Resp B/P (MAP) Pulse Ox O2 Delivery O2 Flow Rate FiO2 08/14/17 16:00 99.0 80 19 118/78 95 99.0 08/14/17 12:00 99.6 91 20 126/82 93 99.6 08/14/17 08:00 98.3 83 19 119/66 95 Room Air 98.3 08/14/17 06:40 83 16 Room Air 08/14/17 04:00 98.5 80 19 123/72 95 98.5 08/14/17 04:00 95 Room Air 08/14/17 00:32 98.8 98.8 08/14/17 00:03 100.6 94 20 130/72 93 100.6 08/14/17 00:00 93 Room Air 08/13/17 20:54 99.1 98 18 132/69 93 99.1 08/13/17 20:00 95 Room Air 08/13/17 19:16 84 20 Room Air Intake and Output 08/13/17 08/14/17 19:00 07:00 Intake Total 969 ml 720 ml Output Total 962 ml 500 ml Balance 7 ml 220 ml Intake Oral 800 ml 720 ml IV Total 169 ml Output Urine Total 950 ml 500 ml Chest Tube Drainage Total 12 ml # Voids 4 Laboratory Tests Test 08/13/17 17:00 08/14/17 06:20 08/14/17 11:00 Reticulocyte Count 1.4 % (0.0-2.0) Haptoglobin Pending Fibrinogen 743 mg/dL (200-400) H Iron Level 14 ug/dL (50-175) L Total Iron Binding Capacity 116 ug/dL (250-450) L Percent Iron Saturation 12 % (15-50) L Unsaturated Iron Binding 102 ug/dL (112-346) L Soluble Transferrin Receptor Pending Ferritin 1789 NG/ML (8-388) H Total Bilirubin 0.6 MG/DL (0.2-1.0) Lactate Dehydrogenase 177 U/L (81-234) Vitamin B12 Level 476 PG/ML (193-986) Methylmalonic Acid Pending Folate 11.4 NG/ML (8.6-58.9) Thyroid Stimulating Hormone (TSH) 0.717 uiU/mL (0.358-3.740) Vancomycin Level Trough 17.8 ug/mL (5.0-12.0) H White Blood Count 11.9 K/UL (4.8-10.8) H Red Blood Count 3.32 M/UL (4.70-6.10) L Hemoglobin 10.3 G/DL (14.2-18.0) L Hematocrit 30.6 % (42.0-52.0) L Mean Corpuscular Volume 92 FL (80-99) Mean Corpuscular Hemoglobin 31.2 PG (27.0-31.0) H Mean Corpuscular Hemoglobin Concent 33.9 G/DL (32.0-36.0) Red Cell Distribution Width 13.0 % (11.6-14.8) Platelet Count 627 K/UL (150-450) H Mean Platelet Volume 6.4 FL (6.5-10.1) L Neutrophils (%) (Auto) 72.9 % (45.0-75.0) Lymphocytes (%) (Auto) 12.1 % (20.0-45.0) L Monocytes (%) (Auto) 8.0 % (1.0-10.0) Eosinophils (%) (Auto) 6.3 % (0.0-3.0) H Basophils (%) (Auto) 0.7 % (0.0-2.0) Sodium Level 137 MMOL/L (136-145) Potassium Level 3.4 MMOL/L (3.5-5.1) L Chloride Level 101 MMOL/L (98-107) Carbon Dioxide Level 31 MMOL/L (21-32) Anion Gap 5 mmol/L (5-15) Blood Urea Nitrogen 7 mg/dL (7-18) Creatinine 0.7 MG/DL (0.55-1.30) Estimat Glomerular Filtration Rate > 60 mL/min (>60) Glucose Level 128 MG/DL (74-106) H Calcium Level 7.5 MG/DL (8.5-10.1) L Stool Occult Blood Pending Microbiology Date/Time Source Procedure Growth Status 08/12/17 12:50 Pleural Fluid Gram Stain - Final Resulted 08/12/17 12:50 Pleural Fluid Surgical Biopsy Culture Pending Resulted 08/12/17 12:50 Pleural Fluid Anaerobic Culture Pending Resulted 08/12/17 12:50 Pleural Fluid Gram Stain Pending Resulted 08/12/17 12:50 Pleural Fluid Body Fluid Culture - Preliminary NO GROWTH AFTER 24 HOURS Resulted 08/12/17 12:50 Pleural Fluid Anaerobic Culture Pending Resulted 08/12/17 12:50 Body Fluid AFB Specimen Processing Tissue - Final Resulted 08/12/17 12:50 Body Fluid Acid Fast Bacilli Smear - Final Resulted 08/12/17 12:50 Body Fluid Acid Fast Bacilli Culture Pending Resulted 08/12/17 12:50 Body Fluid Fungal Culture 1 Pending Resulted 08/12/17 12:50 Thoracic Fluid Gram Stain - Final Resulted 08/12/17 12:50 Thoracic Fluid Body Fluid Culture - Preliminary NO GROWTH AFTER 24 HOURS Resulted 08/12/17 12:50 Thoracic Fluid Anaerobic Culture Pending Resulted 08/12/17 12:50 Thoracic Fluid Gram Stain - Final Resulted 08/12/17 12:50 Thoracic Fluid Body Fluid Culture - Preliminary Resulted 08/12/17 12:50 Thoracic Fluid Anaerobic Culture - Preliminary NO GROWTH AFTER 24 HOURS Resulted Objective HEAD AND NECK: No JVD. LUNGS: Decreased breath sounds on left with left chest tube in place. CARDIOVASCULAR: Regular S1 and S2 with no gallop or murmur. ABDOMEN: Soft. EXTREMITIES: No pitting edema. Yoandy Proctor MD Aug 14, 2017 16:19
[2017-08-14 20:00] VITALS: BP 130/68
--- NOTE | 2017-08-14 20:42 | Infectious Diseases Prog Note ---
Assessment/Plan Problems: (1) CAP (community acquired pneumonia) Assessment & Plan: complicated with loculated pleural effusion, and sepsis due to invasive pneumococcal pneumonia , continue vancomycin, cefepime and zithromax empiric coverage , pending sputum culture. S/P VATS and decortication of his left pleural space , CT surgery is following . monitor CXR (2) Pleural effusion on left Assessment & Plan: loculated, with possible empyema , due to invasive pneumococcal pneumonia infection of the lung , S/P VATS and decortication of the left pleural space with chest tube placement , await fluids culture from OR , CT surgery and senior corporate accountant are following (3) Sepsis Assessment & Plan: due to the above, with invasive streptococcus pneumonia , continue vancomycin and cefepime , for now, pending repeated blood culture to confirm clearance, await 2D echo to rule out any vegetations (4) HIV (human immunodeficiency virus infection) Assessment & Plan: continue triumeq pending his viral load ad CD4 counts. follow up with HIV provider as an out patient Subjective Constitutional: Reports: no symptoms HEENT: Reports: no symptoms Respiratory: Reports: shortness of breath, dry cough Breasts: Reports: no symptoms Cardiovascular: Reports: chest pain Gastrointestinal/Abdominal: Reports: no symptoms Genitourinary: Reports: no symptoms Neurologic: Reports: no symptoms Psychiatric: Reports: no symptoms Skin: Reports: no symptoms Endocrine: Reports: no symptoms Hematologic: Reports: no symptoms Musculoskeletal: Reports: no symptoms Allergies: Coded Allergies: No Known Allergies (Unverified , 07/01/16) Subjective he was complaining of left side chest pain at the chest tube site which was 8 out of 10 , no fever or chills, had mild cough, but no phlegm Objective Vital Signs Last 24 Hour Vital Signs Date Time Temp Pulse Resp B/P (MAP) Pulse Ox O2 Delivery O2 Flow Rate FiO2 08/14/17 19:29 81 16 Room Air 08/14/17 16:00 99.0 80 19 118/78 95 99.0 08/14/17 12:00 99.6 91 20 126/82 93 99.6 08/14/17 08:00 98.3 83 19 119/66 95 Room Air 98.3 08/14/17 06:40 83 16 Room Air 08/14/17 04:00 98.5 80 19 123/72 95 98.5 08/14/17 04:00 95 Room Air 08/14/17 00:32 98.8 98.8 08/14/17 00:03 100.6 94 20 130/72 93 100.6 08/14/17 00:00 93 Room Air 08/13/17 20:54 99.1 98 18 132/69 93 99.1 Height (Feet): 5 Height (Inches): 8.00 Weight (Pounds): 157 General Appearance: WD/WN, no acute distress HEENT: normocephalic, atraumatic, anicteric, mucous membranes moist, PERRL Respiratory/Chest: no respiratory distress, no accessory muscle use, decreased breath sounds, crackles/rales, other - left CT Breasts: no masses Cardiovascular: normal peripheral pulses, normal rate, regular rhythm, no gallop/murmur, no JVD Abdomen: normal bowel sounds, soft, non tender, no organomegaly, non distended , no mass, no scars Genitourinary: normal external genitalia Extremities: no cyanosis, no clubbing Skin: no rash, no lesions, no ulcers Neurologic/Psychiatric: alert, oriented x 3, responsive Lymphatic: no neck adenopathy, no groin adenopathy Microbiology Date/Time Source Procedure Growth Status 08/12/17 12:50 Pleural Fluid Gram Stain - Final Resulted 08/12/17 12:50 Pleural Fluid Surgical Biopsy Culture Pending Resulted 08/12/17 12:50 Pleural Fluid Anaerobic Culture Pending Resulted 08/12/17 12:50 Pleural Fluid Gram Stain Pending Resulted 08/12/17 12:50 Pleural Fluid Body Fluid Culture - Preliminary NO GROWTH AFTER 24 HOURS Resulted 08/12/17 12:50 Pleural Fluid Anaerobic Culture Pending Resulted 08/12/17 12:50 Body Fluid AFB Specimen Processing Tissue - Final Resulted 08/12/17 12:50 Body Fluid Acid Fast Bacilli Smear - Final Resulted 08/12/17 12:50 Body Fluid Acid Fast Bacilli Culture Pending Resulted 08/12/17 12:50 Body Fluid Fungal Culture 1 Pending Resulted 08/12/17 12:50 Thoracic Fluid Gram Stain - Final Resulted 08/12/17 12:50 Thoracic Fluid Body Fluid Culture - Preliminary NO GROWTH AFTER 24 HOURS Resulted 08/12/17 12:50 Thoracic Fluid Anaerobic Culture Pending Resulted 08/12/17 12:50 Thoracic Fluid Gram Stain - Final Resulted 3/20/18 12:50 Thoracic Fluid Body Fluid Culture - Preliminary Resulted 08/12/17 12:50 Thoracic Fluid Anaerobic Culture - Preliminary NO GROWTH AFTER 24 HOURS Resulted Laboratory Tests Test 08/14/17 06:20 08/14/17 11:00 White Blood Count 11.9 K/UL (4.8-10.8) H Red Blood Count 3.32 M/UL (4.70-6.10) L Hemoglobin 10.3 G/DL (14.2-18.0) L Hematocrit 30.6 % (42.0-52.0) L Mean Corpuscular Volume 92 FL (80-99) Mean Corpuscular Hemoglobin 31.2 PG (27.0-31.0) H Mean Corpuscular Hemoglobin Concent 33.9 G/DL (32.0-36.0) Red Cell Distribution Width 13.0 % (11.6-14.8) Platelet Count 627 K/UL (150-450) H Mean Platelet Volume 6.4 FL (6.5-10.1) L Neutrophils (%) (Auto) 72.9 % (45.0-75.0) Lymphocytes (%) (Auto) 12.1 % (20.0-45.0) L Monocytes (%) (Auto) 8.0 % (1.0-10.0) Eosinophils (%) (Auto) 6.3 % (0.0-3.0) H Basophils (%) (Auto) 0.7 % (0.0-2.0) Sodium Level 137 MMOL/L (136-145) Potassium Level 3.4 MMOL/L (3.5-5.1) L Chloride Level 101 MMOL/L (98-107) Carbon Dioxide Level 31 MMOL/L (21-32) Anion Gap 5 mmol/L (5-15) Blood Urea Nitrogen 7 mg/dL (7-18) Creatinine 0.7 MG/DL (0.55-1.30) Estimat Glomerular Filtration Rate > 60 mL/min (>60) Glucose Level 128 MG/DL (74-106) H Calcium Level 7.5 MG/DL (8.5-10.1) L Stool Occult Blood Pending Current Medications Medications (Trade) Dose Ordered Sig/Bhavani Route PRN Reason Start Time Stop Time Status Last Admin Dose Admin Acetaminophen (Tylenol) 650 mg Q4H PRN ORAL Mild Pain (Pain Scale 1-2) 08/13/17 12:00 09/08/17 19:59 Acetaminophen/ Hydrocodone Bitart ([place] 10/325) 1 tab Q4H PRN ORAL For Pain Level 5-6 08/13/17 11:30 08/19/17 19:29 08/13/17 13:21 Acetaminophen/ Hydrocodone Bitart ([place] 5/325) 1 tab Q4H PRN ORAL Moderate Pain Scale 3-4 08/13/17 11:30 08/19/17 19:29 Albuterol/ Ipratropium (Albuterol/ Ipratropium) 3 ml Q4H PRN HHN Shortness of Breath 08/13/17 11:30 08/17/17 19:29 Azithromycin 250 mg/Sodium Chloride 275 ml @ 275 mls/hr Q24HRS IV 08/13/17 21:00 08/15/17 21:01 08/13/17 20:58 Cefepime HCl 2 gm/ Sodium Chloride 55 ml @ 110 mls/hr Q12HR@0600,1800 IVPB 08/13/17 18:00 08/19/17 19:29 08/14/17 17:08 Dextrose (Dextrose 50%) STAT PRN IV Hypoglycemia 08/13/17 19:30 09/11/17 19:29 Docusate Sodium (Colace) 100 mg TWICE A DAY ORAL 08/13/17 18:00 09/11/17 20:59 08/14/17 17:08 Heparin Sodium (Porcine) (Heparin 5000 units/ml) 5,000 units EVERY 12 HOURS SUBQ 08/13/17 21:00 09/11/17 20:59 08/14/17 20:26 Morphine Sulfate (Morphine Sulfate) 2 mg Q4H PRN IVP Severe Pain (Pain Scale 7-10) 08/13/17 11:30 08/19/17 19:29 08/14/17 00:54 Ondansetron HCl (Zofran) 4 mg Q6H PRN IVP Nausea & Vomiting 08/13/17 13:30 09/11/17 19:29 Patient Own Medication (Patient's Own Med) 1 ea DAILY ORAL 08/14/17 09:00 09/08/17 15:59 08/14/17 09:12 Vancomycin HCl (Vanco rx to dose) 1 ea DAILYPRN PRN MISC Per rx protocol 08/13/17 19:30 09/11/17 19:29 Vancomycin HCl 1 gm/Dextrose 275 ml @ 183.708 mls/hr Q6HR IVPB 08/13/17 13:00 08/17/17 12:59 08/14/17 17:09 Marvni Bullock M.D. Aug 14, 2017 20:42
[2017-08-14] MEDS: Azithromycin 250 MG in NS 275 ML IV SCH (22:18)
[2017-08-14] MEDS: Nystatin Susp 500,000 units/5ml ORAL SCH (22:39)
[2017-08-15] VITALS: BP 131/79
[2017-08-15 04:00] VITALS: BP 135/75
[2017-08-15] MEDS: Cefepime HCl 2 GM in NS 55 ML IVPB SCH ×2 (05:21→17:11)
[2017-08-15] MEDS: Vancomycin 1 GM in D5W 275 ML IVPB SCH ×3 (06:07→17:58)
[2017-08-15 07:33] LABS: BASOPHILS % (AUTO) 1.2 % (0.0-2.0); EOSINOPHILS % (AUTO) 7.1 % (0.0-3.0); LYMPHOCYTES % (AUTO) 13.3 % (20.0-45.0); MEAN CORPUSCULAR VOLUME 91 FL (80-99); MONOCYTES % (AUTO) 7.9 % (1.0-10.0); NEUTROPHILS % (AUTO) 70.5 % (45.0-75.0); PLATELET COUNT 699 K/UL (150-450); WHITE BLOOD COUNT 9.5 K/UL (4.8-10.8)
--- NOTE | 2017-08-15 07:35 | Pulmonology Progress Note ---
Assessment/Plan Problems: (1) CAP (community acquired pneumonia) (2) Pleural effusion on left Assessment & Plan: LOCULATED, likely para-pneumonic vs empyema (3) Sepsis (4) Acute pyelonephritis (5) HIV (human immunodeficiency virus infection) Assessment/Plan ASSESSMENT: * Febrile illness & sepsis, CAP/empyema + UTI with PN * Multilobar CAP with loculated L sided effusion/empyema S/P L VATS decortication 08/12/17, * GPC sepsis * GPC UTI with PN * Marked leukocytosis 2/2 above - IMPROVED * HIV with unknown CD4 count * Anemai, likely AoCD * [facility] PLAN: * Change CT to H2O seal, likely D/C later today or tomm * Pain control/supportive care * IS * Continue current antimicrobial therapy (Vanco, Azithro, Cefepime) per ID * F/U OR Path * Optimize pulmonary hygiene/mobilize as tolerated * PRN O2 to keep SaO2 > 90% * PRN HHN's * PRN Robitussin * cART per ID, F/U CD4 count and VL * DVT Px: Hep SQ * Dispo planning D/W RN @ bedside Subjective Allergies: Coded Allergies: No Known Allergies (Unverified , 07/01/16) Subjective POD 3, Tm 99.6, VSS, stable on RA, WCt better, CT 32 No SOB, CP better, + strong cough, no wheezing, no F/C Renate PO, no NV Objective Last 24 Hour Vital Signs Date Time Temp Pulse Resp B/P (MAP) Pulse Ox O2 Delivery O2 Flow Rate FiO2 08/15/17 04:00 98.7 77 18 135/75 98 98.7 08/15/17 04:00 98 Room Air 08/15/17 00:00 96 Room Air 08/15/17 00:00 99.3 79 18 131/79 96 99.3 08/14/17 20:00 98.5 81 18 130/68 94 Room Air 98.5 08/14/17 19:29 81 16 Room Air 08/14/17 16:00 99.0 80 19 118/78 95 99.0 08/14/17 12:00 99.6 91 20 126/82 93 99.6 08/14/17 08:00 98.3 83 19 119/66 95 Room Air 98.3 Intake and Output 08/14/17 08/15/17 19:00 07:00 Intake Total 550 ml 480 ml Output Total 832 ml 1206 ml Balance -282 ml -726 ml Intake Oral 550 ml 480 ml Output Urine Total 800 ml 1200 ml Chest Tube Drainage Total 32 ml 6 ml # Voids 5 # Bowel Movements 1 General Appearance: WD/WN, no acute distress HEENT: normocephalic, atraumatic, anicteric, mucous membranes moist Respiratory/Chest: chest wall non-tender, lungs clear, normal breath sounds, no respiratory distress, no accessory muscle use, other - L CT Cardiovascular: normal peripheral pulses, normal rate, regular rhythm Abdomen: normal bowel sounds, soft, non tender, no organomegaly, non distended , no mass Extremities: no cyanosis, no clubbing, no edema Microbiology Date/Time Source Procedure Growth Status 08/12/17 12:50 Pleural Fluid Gram Stain - Final Resulted 08/12/17 12:50 Pleural Fluid Surgical Biopsy Culture Pending Resulted 08/12/17 12:50 Pleural Fluid Anaerobic Culture Pending Resulted 08/12/17 12:50 Pleural Fluid Gram Stain Pending Resulted 08/12/17 12:50 Pleural Fluid Body Fluid Culture - Preliminary NO GROWTH AFTER 24 HOURS Resulted 08/12/17 12:50 Pleural Fluid Anaerobic Culture Pending Resulted 08/12/17 12:50 Body Fluid AFB Specimen Processing Tissue - Final Resulted 08/12/17 12:50 Body Fluid Acid Fast Bacilli Smear - Final Resulted 08/12/17 12:50 Body Fluid Acid Fast Bacilli Culture Pending Resulted 08/12/17 12:50 Body Fluid Fungal Culture 1 Pending Resulted 08/12/17 12:50 Thoracic Fluid Gram Stain - Final Resulted 08/12/17 12:50 Thoracic Fluid Body Fluid Culture - Preliminary NO GROWTH AFTER 24 HOURS Resulted 08/12/17 12:50 Thoracic Fluid Anaerobic Culture Pending Resulted 08/12/17 12:50 Thoracic Fluid Gram Stain - Final Resulted 08/12/17 12:50 Thoracic Fluid Body Fluid Culture - Preliminary Resulted 08/12/17 12:50 Thoracic Fluid Anaerobic Culture - Preliminary NO GROWTH AFTER 24 HOURS Resulted Laboratory Tests 08/14/17 11:00: Stool Occult Blood [Pending] 08/15/17 06:10: White Blood Count [Pending], Red Blood Count [Pending], Hemoglobin [Pending], Hematocrit [Pending], Mean Corpuscular Volume [Pending], Mean Corpuscular Hemoglobin [Pending], Mean Corpuscular Hemoglobin Concent [Pending], Red Cell Distribution Width [Pending], Platelet Count [Pending], Mean Platelet Volume [ Pending], Neutrophils (%) (Auto) [Pending], Lymphocytes (%) (Auto) [Pending], Monocytes (%) (Auto) [Pending], Eosinophils (%) (Auto) [Pending], Basophils (%) (Auto) [Pending], Sodium Level [Pending], Potassium Level [Pending], Chloride Level [Pending], Carbon Dioxide Level [Pending], Blood Urea Nitrogen [Pending], Creatinine [Pending], Estimat Glomerular Filtration Rate [Pending], Glucose Level [Pending], Calcium Level [Pending] Current Medications Medications (Trade) Dose Ordered Sig/Bhavani Route PRN Reason Start Time Stop Time Status Last Admin Dose Admin Acetaminophen (Tylenol) 650 mg Q4H PRN ORAL Mild Pain (Pain Scale 1-2) 08/13/17 12:00 09/08/17 19:59 Acetaminophen/ Hydrocodone Bitart ([place] 10/325) 1 tab Q4H PRN ORAL For Pain Level 5-6 08/13/17 11:30 08/19/17 19:29 08/13/17 13:21 Acetaminophen/ Hydrocodone Bitart ([place] 5/325) 1 tab Q4H PRN ORAL Moderate Pain Scale 3-4 08/13/17 11:30 08/19/17 19:29 Albuterol/ Ipratropium (Albuterol/ Ipratropium) 3 ml Q4H PRN HHN Shortness of Breath 08/13/17 11:30 08/17/17 19:29 Azithromycin 250 mg/Sodium Chloride 275 ml @ 275 mls/hr Q24HRS IV 08/13/17 21:00 08/15/17 21:01 08/14/17 22:18 Cefepime HCl 2 gm/ Sodium Chloride 55 ml @ 110 mls/hr Q12HR@0600,1800 IVPB 08/13/17 18:00 08/19/17 19:29 08/15/17 05:21 Dextrose (Dextrose 50%) STAT PRN IV Hypoglycemia 08/13/17 19:30 09/11/17 19:29 Docusate Sodium (Colace) 100 mg TWICE A DAY ORAL 08/13/17 18:00 09/11/17 20:59 08/14/17 17:08 Heparin Sodium (Porcine) (Heparin 5000 units/ml) 5,000 units EVERY 12 HOURS SUBQ 08/13/17 21:00 09/11/17 20:59 08/14/17 20:26 Meningococcal Polysaccharide Vacc (Menomune-A/C/Y/ W-135) 0.5 ml ONCE ONCE IM 08/15/17 06:45 08/15/17 06:46 UNV Morphine Sulfate (Morphine Sulfate) 2 mg Q4H PRN IVP Severe Pain (Pain Scale 7-10) 08/13/17 11:30 08/19/17 19:29 08/14/17 00:54 Nystatin (Nystatin) 5 ml TID ORAL 08/14/17 22:00 08/21/17 21:59 08/14/17 22:39 Ondansetron HCl (Zofran) 4 mg Q6H PRN IVP Nausea & Vomiting 08/13/17 13:30 09/11/17 19:29 Patient Own Medication (Patient's Own Med) 1 ea DAILY ORAL 08/14/17 09:00 09/08/17 15:59 08/14/17 09:12 Vancomycin HCl (Vanco rx to dose) 1 ea DAILYPRN PRN MISC Per rx protocol 08/13/17 19:30 09/11/17 19:29 Vancomycin HCl 1 gm/Dextrose 275 ml @ 183.708 mls/hr Q6HR IVPB 08/13/17 13:00 08/17/17 12:59 08/15/17 06:07 ILENE UMAÑA M.D. Aug 15, 2017 07:35
[2017-08-15 08:00] VITALS: BP 119/70
[2017-08-15 08:04] LABS: ANION GAP 8 mmol/L (5-15); BLOOD UREA NITROGEN 7 mg/dL (7-18); CALCIUM 7.9 MG/DL (8.5-10.1); CARBON DIOXIDE 29 MMOL/L (21-32); CHLORIDE 100 MMOL/L (98-107); CREATININE 0.8 MG/DL (0.55-1.30); POTASSIUM 3.7 MMOL/L (3.5-5.1); SODIUM 137 MMOL/L (136-145)
[2017-08-15] MEDS: Docusate 100mg cap ORAL SCH ×2 (08:50→17:11)
[2017-08-15] MEDS: Nystatin Susp 500,000 units/5ml ORAL SCH ×3 (08:50→17:11)
[2017-08-15] MEDS: Heparin 5000 units/ml inj SUBQ SCH ×2 (08:52→21:09)
[2017-08-15] MEDS ORDERED: Meningococcal Polysacc Vaccine Inj IM ONE (09:00)
--- NOTE | 2017-08-15 09:38 | Nephrology Progress Note ---
Assessment/Plan Problem List: (1) CAP (community acquired pneumonia) (2) Pleural effusion on left (3) HIV (human immunodeficiency virus infection) (4) Sepsis Assessment: GPC in blood. (5) UTI (urinary tract infection) Plan Abx per ID. Follow up cx's. S/p VATS. f/u recs per C CTS. Subjective Subjective late entry for 08/14 - Has SOB. CT still in place Objective Objective Last 24 Hour Vital Signs Date Time Temp Pulse Resp B/P (MAP) Pulse Ox O2 Delivery O2 Flow Rate FiO2 08/15/17 08:00 99.2 79 20 119/70 93 99.2 08/15/17 06:40 78 16 Room Air 08/15/17 04:00 98.7 77 18 135/75 98 98.7 08/15/17 04:00 98 Room Air 08/15/17 00:00 96 Room Air 08/15/17 00:00 99.3 79 18 131/79 96 99.3 08/14/17 20:00 98.5 81 18 130/68 94 Room Air 98.5 08/14/17 19:29 81 16 Room Air 08/14/17 16:00 99.0 80 19 118/78 95 99.0 08/14/17 12:00 99.6 91 20 126/82 93 99.6 Intake and Output 08/14/17 08/15/17 19:00 07:00 Intake Total 550 ml 480 ml Output Total 832 ml 1206 ml Balance -282 ml -726 ml Intake Oral 550 ml 480 ml Output Urine Total 800 ml 1200 ml Chest Tube Drainage Total 32 ml 6 ml # Voids 5 # Bowel Movements 1 Laboratory Tests 08/14/17 11:00: Stool Occult Blood [Pending] 08/15/17 06:10: White Blood Count 9.5, Red Blood Count 3.50L, Hemoglobin 11.0L, Hematocrit 32.0L , Mean Corpuscular Volume 91, Mean Corpuscular Hemoglobin 31.4H, Mean Corpuscular Hemoglobin Concent 34.3, Red Cell Distribution Width 13.0, Platelet Count 699H, Mean Platelet Volume 6.1L, Neutrophils (%) (Auto) 70.5, Lymphocytes (%) (Auto) 13.3L, Monocytes (%) (Auto) 7.9, Eosinophils (%) (Auto) 7.1H, Basophils (%) (Auto) 1.2, Sodium Level 137, Potassium Level 3.7, Chloride Level 100, Carbon Dioxide Level 29, Anion Gap 8, Blood Urea Nitrogen 7, Creatinine 0.8 , Estimat Glomerular Filtration Rate > 60, Glucose Level 96, Calcium Level 7.9L Height (Feet): 5 Height (Inches): 8.00 Weight (Pounds): 157 General Appearance: no apparent distress Cardiovascular: normal rate, regular rhythm Respiratory/Chest: decreased breath sounds Abdomen: non tender, soft Extremities: trace edema Neurologic: alert CASTRO VAUGHAN Aug 15, 2017 09:38
--- NOTE | 2017-08-15 09:52 | Diagnostic Imaging Report ---
Indication: Shortness of breath Technique: One view of the chest Comparison: 08/14/2017 Findings: Left chest tube remains. Pleural and parenchymal opacities in the left mid and lower lung appear unchanged. There is increased atelectasis at the right lung base. Very slight blunting of the right costophrenic sulcus is noted, small amount of pleural fluid possible. Left upper quadrant surgical clips, prominent: Again demonstrated. Minimal degenerative changes of the right shoulder noted Impression: Slight right costophrenic angle blunting, could indicate a small amount of pleural fluid on the right Increasing right basilar atelectasis Otherwise stable, findings as noted
[2017-08-15 12:00] VITALS: BP 128/79
--- NOTE | 2017-08-15 13:17 | Infectious Diseases Prog Note ---
Assessment/Plan Problems: (1) CAP (community acquired pneumonia) Assessment & Plan: complicated with loculated pleural effusion, and sepsis due to invasive pneumococcal pneumonia , continue vancomycin, cefepime and zithromax empiric coverage , pending sputum culture. S/P VATS and decortication of his left pleural space , CT surgery is following . monitor CXR (2) Pleural effusion on left Assessment & Plan: loculated, with possible empyema , due to invasive pneumococcal pneumonia infection of the lung , S/P VATS and decortication of the left pleural space with chest tube placement , pleural tissue culture from OR is growing gram negative rods , already on cefepime . CT surgery and plastic sewer are following (3) Sepsis Assessment & Plan: due to the above, with invasive streptococcus pneumonia , continue vancomycin and cefepime , for now, pending repeated blood culture to confirm clearance, await 2D echo to rule out any vegetations (4) HIV (human immunodeficiency virus infection) Assessment & Plan: continue triumeq pending his viral load ad CD4 counts. follow up with HIV provider as an out patient Subjective Constitutional: Reports: no symptoms HEENT: Reports: other - thrush on the tongue Respiratory: Reports: dry cough Breasts: Reports: no symptoms Cardiovascular: Reports: no symptoms Gastrointestinal/Abdominal: Reports: no symptoms Genitourinary: Reports: no symptoms Neurologic: Reports: no symptoms Psychiatric: Reports: no symptoms Skin: Reports: no symptoms Endocrine: Reports: no symptoms Hematologic: Reports: no symptoms Musculoskeletal: Reports: no symptoms Allergies: Coded Allergies: No Known Allergies (Unverified , 07/01/16) Subjective he was complaining of left side chest pain at the chest tube site which was 8 out of 10 , no fever or chills, had mild cough, but no phlegm Objective Vital Signs Last 24 Hour Vital Signs Date Time Temp Pulse Resp B/P (MAP) Pulse Ox O2 Delivery O2 Flow Rate FiO2 08/15/17 08:00 99.2 79 20 119/70 93 99.2 08/15/17 06:40 78 16 Room Air 08/15/17 04:00 98.7 77 18 135/75 98 98.7 08/15/17 04:00 98 Room Air 08/15/17 00:00 96 Room Air 08/15/17 00:00 99.3 79 18 131/79 96 99.3 08/14/17 20:00 98.5 81 18 130/68 94 Room Air 98.5 08/14/17 19:29 81 16 Room Air 08/14/17 16:00 99.0 80 19 118/78 95 99.0 Height (Feet): 5 Height (Inches): 8.00 Weight (Pounds): 157 General Appearance: WD/WN, no acute distress HEENT: normocephalic, atraumatic, anicteric, mucous membranes moist Respiratory/Chest: normal breath sounds, no respiratory distress, no accessory muscle use, decreased breath sounds, crackles/rales Cardiovascular: normal peripheral pulses, normal rate, regular rhythm, no gallop/murmur, no JVD Abdomen: normal bowel sounds, soft, non tender, no organomegaly, non distended , no mass, no scars Extremities: no cyanosis, no clubbing Skin: no rash, no lesions, no ulcers Neurologic/Psychiatric: alert, oriented x 3, responsive Lymphatic: no neck adenopathy, no groin adenopathy Musculoskeletal: normal muscle bulk Laboratory Tests Test 08/15/17 06:10 White Blood Count 9.5 K/UL (4.8-10.8) Red Blood Count 3.50 M/UL (4.70-6.10) L Hemoglobin 11.0 G/DL (14.2-18.0) L Hematocrit 32.0 % (42.0-52.0) L Mean Corpuscular Volume 91 FL (80-99) Mean Corpuscular Hemoglobin 31.4 PG (27.0-31.0) H Mean Corpuscular Hemoglobin Concent 34.3 G/DL (32.0-36.0) Red Cell Distribution Width 13.0 % (11.6-14.8) Platelet Count 699 K/UL (150-450) H Mean Platelet Volume 6.1 FL (6.5-10.1) L Neutrophils (%) (Auto) 70.5 % (45.0-75.0) Lymphocytes (%) (Auto) 13.3 % (20.0-45.0) L Monocytes (%) (Auto) 7.9 % (1.0-10.0) Eosinophils (%) (Auto) 7.1 % (0.0-3.0) H Basophils (%) (Auto) 1.2 % (0.0-2.0) Sodium Level 137 MMOL/L (136-145) Potassium Level 3.7 MMOL/L (3.5-5.1) Chloride Level 100 MMOL/L (98-107) Carbon Dioxide Level 29 MMOL/L (21-32) Anion Gap 8 mmol/L (5-15) Blood Urea Nitrogen 7 mg/dL (7-18) Creatinine 0.8 MG/DL (0.55-1.30) Estimat Glomerular Filtration Rate > 60 mL/min (>60) Glucose Level 96 MG/DL (74-106) Calcium Level 7.9 MG/DL (8.5-10.1) L Current Medications Medications (Trade) Dose Ordered Sig/Bhavani Route PRN Reason Start Time Stop Time Status Last Admin Dose Admin Acetaminophen (Tylenol) 650 mg Q4H PRN ORAL Mild Pain (Pain Scale 1-2) 08/13/17 12:00 09/08/17 19:59 Acetaminophen/ Hydrocodone Bitart ([place] 10/325) 1 tab Q4H PRN ORAL For Pain Level 5-6 08/13/17 11:30 08/19/17 19:29 08/13/17 13:21 Acetaminophen/ Hydrocodone Bitart ([place] 5/325) 1 tab Q4H PRN ORAL Moderate Pain Scale 3-4 08/13/17 11:30 08/19/17 19:29 Albuterol/ Ipratropium (Albuterol/ Ipratropium) 3 ml Q4H PRN HHN Shortness of Breath 08/13/17 11:30 08/17/17 19:29 Azithromycin 250 mg/Sodium Chloride 275 ml @ 275 mls/hr Q24HRS IV 08/13/17 21:00 08/15/17 21:01 08/14/17 22:18 Cefepime HCl 2 gm/ Sodium Chloride 55 ml @ 110 mls/hr Q12HR@0600,1800 IVPB 08/13/17 18:00 08/19/17 19:29 08/15/17 05:21 Dextrose (Dextrose 50%) STAT PRN IV Hypoglycemia 08/13/17 19:30 09/11/17 19:29 Docusate Sodium (Colace) 100 mg TWICE A DAY ORAL 08/13/17 18:00 09/11/17 20:59 08/15/17 08:50 Heparin Sodium (Porcine) (Heparin 5000 units/ml) 5,000 units EVERY 12 HOURS SUBQ 08/13/17 21:00 09/11/17 20:59 08/15/17 08:52 Morphine Sulfate (Morphine Sulfate) 2 mg Q4H PRN IVP Severe Pain (Pain Scale 7-10) 08/13/17 11:30 08/19/17 19:29 08/14/17 00:54 Nystatin (Nystatin) 5 ml TID ORAL 08/14/17 22:00 08/21/17 21:59 08/15/17 08:50 Ondansetron HCl (Zofran) 4 mg Q6H PRN IVP Nausea & Vomiting 08/13/17 13:30 09/11/17 19:29 Patient Own Medication (Patient's Own Med) 1 ea DAILY ORAL 08/14/17 09:00 09/08/17 15:59 08/15/17 08:50 Vancomycin HCl (Vanco rx to dose) 1 ea DAILYPRN PRN MISC Per rx protocol 08/13/17 19:30 09/11/17 19:29 Vancomycin HCl 1 gm/Dextrose 275 ml @ 183.708 mls/hr Q6HR IVPB 08/13/17 13:00 08/17/17 12:59 08/15/17 06:07 Marvin Bullock M.D. Aug 15, 2017 13:17
[2017-08-15 15:54] VITALS: BP 122/76
--- NOTE | 2017-08-15 16:32 | Cardiac Electrophysiology PN ---
Assessment/Plan Assessment/Plan 1. Pleural effusion. Likely due to pneumonia. On IV antibiotics with vancomycin and azithromycin. S/P thoracoscopy and VATS and chest tube placement 08/12/[address] Alarcon. Echocardiogram EF 55%. ECG NSR with no ischemia. Chest tube to be removed in am. 2. Human immunodeficiency virus. 3. Pyelonephritis, on IV antibiotics. 4. Difficulty hearing DW RN Subjective Subjective Left VATS chest tube still connected with minimal drainage. Chest tube to be removed by CT surgery Objective Last 24 Hour Vital Signs Date Time Temp Pulse Resp B/P (MAP) Pulse Ox O2 Delivery O2 Flow Rate FiO2 08/15/17 15:54 98.5 74 18 122/76 96 98.5 08/15/17 12:00 98.1 75 19 128/79 95 98.1 08/15/17 08:00 99.2 79 20 119/70 93 99.2 08/15/17 06:40 78 16 Room Air 08/15/17 04:00 98.7 77 18 135/75 98 98.7 08/15/17 04:00 98 Room Air 08/15/17 00:00 96 Room Air 08/15/17 00:00 99.3 79 18 131/79 96 99.3 08/14/17 20:00 98.5 81 18 130/68 94 Room Air 98.5 08/14/17 19:29 81 16 Room Air Intake and Output 08/14/17 08/15/17 19:00 07:00 Intake Total 550 ml 480 ml Output Total 832 ml 1206 ml Balance -282 ml -726 ml Intake Oral 550 ml 480 ml Output Urine Total 800 ml 1200 ml Chest Tube Drainage Total 32 ml 6 ml # Voids 5 # Bowel Movements 1 Laboratory Tests Test 08/15/17 06:10 White Blood Count 9.5 K/UL (4.8-10.8) Red Blood Count 3.50 M/UL (4.70-6.10) L Hemoglobin 11.0 G/DL (14.2-18.0) L Hematocrit 32.0 % (42.0-52.0) L Mean Corpuscular Volume 91 FL (80-99) Mean Corpuscular Hemoglobin 31.4 PG (27.0-31.0) H Mean Corpuscular Hemoglobin Concent 34.3 G/DL (32.0-36.0) Red Cell Distribution Width 13.0 % (11.6-14.8) Platelet Count 699 K/UL (150-450) H Mean Platelet Volume 6.1 FL (6.5-10.1) L Neutrophils (%) (Auto) 70.5 % (45.0-75.0) Lymphocytes (%) (Auto) 13.3 % (20.0-45.0) L Monocytes (%) (Auto) 7.9 % (1.0-10.0) Eosinophils (%) (Auto) 7.1 % (0.0-3.0) H Basophils (%) (Auto) 1.2 % (0.0-2.0) Sodium Level 137 MMOL/L (136-145) Potassium Level 3.7 MMOL/L (3.5-5.1) Chloride Level 100 MMOL/L (98-107) Carbon Dioxide Level 29 MMOL/L (21-32) Anion Gap 8 mmol/L (5-15) Blood Urea Nitrogen 7 mg/dL (7-18) Creatinine 0.8 MG/DL (0.55-1.30) Estimat Glomerular Filtration Rate > 60 mL/min (>60) Glucose Level 96 MG/DL (74-106) Calcium Level 7.9 MG/DL (8.5-10.1) L Objective HEAD AND NECK: No JVD. LUNGS: Decreased breath sounds on left with left chest tube in place. CARDIOVASCULAR: Regular S1 and S2 with no gallop or murmur. ABDOMEN: Soft. EXTREMITIES: No pitting edema. Yoandy Proctor MD Aug 15, 2017 16:32
[2017-08-15 20:00] VITALS: BP 135/81
[2017-08-15] MEDS: Azithromycin 250 MG in NS 275 ML IV SCH (21:08)
[2017-08-16] VITALS: BP 123/73
--- NOTE | 2017-08-16 00:11 | General Progress Note ---
Assessment/Plan Assessment/Plan 1. Anemia of chronic disease. --> Continue to closely monitor. Likely anemia is related to chronic disease. --> It does not appear that decreased likely it is a chronic issue with the patient's HIV and unknown viral count, poorly controlled in addition to pneumonia. --> Anemia workup reviewed. Iron 14, TIBC 116, Vit b12 476, Folate 11.4 --> Monitor and trend cbc 2. Leukocytosis, likely secondary to pneumonia. --> CT Surgery following in addition to decortication pending. --> Improving 3. Pleural effusion, the patient is status post VATS, decortication and chest tube placement. 4. Sepsis secondary to streptococcus, on broad-spectrum antibiotics. --> Improving 5. Urinary tract infection. 6. Human immunodeficiency virus/Acquired immunodeficiency syndrome. Subjective Date patient seen: Aug 14, 2017 Constitutional: Denies: no symptoms, chills, diaphoresis, fever, malaise, weakness, other HEENT: Denies: no symptoms, eye pain, blurred vision, tearing, double vision, ear pain, ear discharge, nose pain, nose congestion, throat pain, throat swelling, mouth pain, mouth swelling, other Cardiovascular: Denies: no symptoms, chest pain, edema, irregular heart rate, lightheadedness, palpitations, syncope, other Respiratory: Denies: no symptoms, cough, orthopnea, shortness of breath, SOB with excertion, SOB at rest, sputum, stridor, wheezing, other Gastrointestinal/Abdominal: Denies: no symptoms, abdomen distended, abdominal pain, black stools, tarry stools, blood in stool, constipated, diarrhea, difficulty swallowing, nausea, poor appetite, poor fluid intake, rectal bleeding , vomiting, other Genitourinary: Denies: no symptoms, burning, discharge, frequency, flank pain, hematuria, incontinence, pain, urgency, other Neurologic/Psychiatric: Denies: no symptoms, anxiety, depressed, emotional problems, headache, numbness, paresthesia, pre-existing deficit, seizure, tingling, tremors, weakness, other Endocrine: Denies: no symptoms, excessive sweating, flushing, intolerance to cold, intolerance to heat, increased hunger, increased thirst, increased urine, unexplained weight gain, unexplained weight loss, other Hematologic/Lymphatic: Reports: anemia Allergies: Coded Allergies: No Known Allergies (Unverified , 07/01/16) Subjective On antibiotics. Leukocytosis improving. No new events. Objective Last 24 Hour Vital Signs Date Time Temp Pulse Resp B/P (MAP) Pulse Ox O2 Delivery O2 Flow Rate FiO2 08/15/17 20:00 99.1 77 18 135/81 96 Room Air 99.1 08/15/17 19:54 75 18 Room Air 08/15/17 15:54 98.5 74 18 122/76 96 98.5 08/15/17 12:00 98.1 75 19 128/79 95 98.1 08/15/17 08:00 99.2 79 20 119/70 93 99.2 08/15/17 06:40 78 16 Room Air 08/15/17 04:00 98.7 77 18 135/75 98 98.7 08/15/17 04:00 98 Room Air Intake and Output 08/15/17 08/16/17 19:00 07:00 Intake Total 320 ml Output Total 1050 ml Balance -730 ml Intake Oral 320 ml Output Urine Total 1050 ml # Voids 4 # Bowel Movements 1 Laboratory Tests 08/15/17 06:10: White Blood Count 9.5, Red Blood Count 3.50L, Hemoglobin 11.0L, Hematocrit 32.0L , Mean Corpuscular Volume 91, Mean Corpuscular Hemoglobin 31.4H, Mean Corpuscular Hemoglobin Concent 34.3, Red Cell Distribution Width 13.0, Platelet Count 699H, Mean Platelet Volume 6.1L, Neutrophils (%) (Auto) 70.5, Lymphocytes (%) (Auto) 13.3L, Monocytes (%) (Auto) 7.9, Eosinophils (%) (Auto) 7.1H, Basophils (%) (Auto) 1.2, Sodium Level 137, Potassium Level 3.7, Chloride Level 100, Carbon Dioxide Level 29, Anion Gap 8, Blood Urea Nitrogen 7, Creatinine 0.8 , Estimat Glomerular Filtration Rate > 60, Glucose Level 96, Calcium Level 7.9L Height (Feet): 5 Height (Inches): 8.00 Weight (Pounds): 157 Respiratory/Chest: decreased breath sounds Abdomen: soft Wayne Ortiz MD Aug 16, 2017 00:11
--- NOTE | 2017-08-16 00:11 | General Progress Note ---
Assessment/Plan Assessment/Plan 1. Anemia of chronic disease. --> Continue to closely monitor. Likely anemia is related to chronic disease. --> It does not appear that decreased likely it is a chronic issue with the patient's HIV and unknown viral count, poorly controlled in addition to pneumonia. --> Anemia workup reviewed. Iron 14, TIBC 116, Vit b12 476, Folate 11.4 --> Monitor and trend cbc 2. Leukocytosis, likely secondary to pneumonia. --> CT Surgery following in addition to decortication pending. --> Improving 3. Pleural effusion, the patient is status post VATS, decortication and chest tube placement. 4. Sepsis secondary to streptococcus, on broad-spectrum antibiotics. --> Improving 5. Urinary tract infection. 6. Human immunodeficiency virus/Acquired immunodeficiency syndrome. Subjective Date patient seen: Aug 15, 2017 Constitutional: Denies: no symptoms, chills, diaphoresis, fever, malaise, weakness, other HEENT: Denies: no symptoms, eye pain, blurred vision, tearing, double vision, ear pain, ear discharge, nose pain, nose congestion, throat pain, throat swelling, mouth pain, mouth swelling, other Cardiovascular: Denies: no symptoms, chest pain, edema, irregular heart rate, lightheadedness, palpitations, syncope, other Respiratory: Denies: no symptoms, cough, orthopnea, shortness of breath, SOB with excertion, SOB at rest, sputum, stridor, wheezing, other Gastrointestinal/Abdominal: Denies: no symptoms, abdomen distended, abdominal pain, black stools, tarry stools, blood in stool, constipated, diarrhea, difficulty swallowing, nausea, poor appetite, poor fluid intake, rectal bleeding , vomiting, other Genitourinary: Denies: no symptoms, burning, discharge, frequency, flank pain, hematuria, incontinence, pain, urgency, other Neurologic/Psychiatric: Denies: no symptoms, anxiety, depressed, emotional problems, headache, numbness, paresthesia, pre-existing deficit, seizure, tingling, tremors, weakness, other Hematologic/Lymphatic: Reports: anemia Allergies: Coded Allergies: No Known Allergies (Unverified , 07/01/16) Subjective On antibiotics. No hematochezia. H/H stable. Objective Last 24 Hour Vital Signs Date Time Temp Pulse Resp B/P (MAP) Pulse Ox O2 Delivery O2 Flow Rate FiO2 08/15/17 20:00 99.1 77 18 135/81 96 Room Air 99.1 08/15/17 19:54 75 18 Room Air 08/15/17 15:54 98.5 74 18 122/76 96 98.5 08/15/17 12:00 98.1 75 19 128/79 95 98.1 08/15/17 08:00 99.2 79 20 119/70 93 99.2 08/15/17 06:40 78 16 Room Air 08/15/17 04:00 98.7 77 18 135/75 98 98.7 08/15/17 04:00 98 Room Air Intake and Output 08/15/17 08/16/17 19:00 07:00 Intake Total 320 ml Output Total 1050 ml Balance -730 ml Intake Oral 320 ml Output Urine Total 1050 ml # Voids 4 # Bowel Movements 1 Laboratory Tests 08/15/17 06:10: White Blood Count 9.5, Red Blood Count 3.50L, Hemoglobin 11.0L, Hematocrit 32.0L , Mean Corpuscular Volume 91, Mean Corpuscular Hemoglobin 31.4H, Mean Corpuscular Hemoglobin Concent 34.3, Red Cell Distribution Width 13.0, Platelet Count 699H, Mean Platelet Volume 6.1L, Neutrophils (%) (Auto) 70.5, Lymphocytes (%) (Auto) 13.3L, Monocytes (%) (Auto) 7.9, Eosinophils (%) (Auto) 7.1H, Basophils (%) (Auto) 1.2, Sodium Level 137, Potassium Level 3.7, Chloride Level 100, Carbon Dioxide Level 29, Anion Gap 8, Blood Urea Nitrogen 7, Creatinine 0.8 , Estimat Glomerular Filtration Rate > 60, Glucose Level 96, Calcium Level 7.9L Height (Feet): 5 Height (Inches): 8.00 Weight (Pounds): 157 General Appearance: no apparent distress Respiratory/Chest: decreased breath sounds Abdomen: soft Wayne Ortiz MD Aug 16, 2017 00:11
--- NOTE | 2017-08-16 00:30 | Progress Note ---
SUBJECTIVE: This is a 57-year-old male, currently doing better. Still [id number] short of breath on exertion. His chest tube is not leaking. OBJECTIVE: VITAL SIGNS: Blood pressure 113/70, pulse 60, no fever. CHEST: Bilaterally clear. CARDIOVASCULAR: Regular rhythm. No gallop. No murmur. ABDOMEN: Soft. EXTREMITIES: CCE. ASSESSMENT: 1. Pleural effusion, status post thoracocentesis and chest pain. 2. Pneumonia. 3. Hypertension. 4. Generalized weakness. PLAN: We will continue bronchodilator treatments. chest tube. We will order chest x-ray. Discussed with Pulmonary and Dr. Thurman. Andry Owen M.D. DR: Terrie JOB#: [id number] CC:
[2017-08-16] MEDS: Vancomycin 1 GM in D5W 275 ML IVPB SCH ×5 (00:48→23:55)
[2017-08-16 04:00] VITALS: BP 117/68
[2017-08-16] MEDS: Cefepime HCl 2 GM in NS 55 ML IVPB SCH (05:50)
[2017-08-16 08:00] VITALS: BP 114/68
[2017-08-16] MEDS: Docusate 100mg cap ORAL SCH ×2 (09:43→20:12)
[2017-08-16] MEDS: Nystatin Susp 500,000 units/5ml ORAL SCH ×3 (09:43→19:46)
[2017-08-16] MEDS: Heparin 5000 units/ml inj SUBQ SCH ×2 (09:44→20:44)
--- NOTE | 2017-08-16 10:05 | Cardiac Electrophysiology PN ---
Assessment/Plan Assessment/Plan 1. Pleural effusion. Likely due to pneumonia. On IV antibiotics S/P thoracoscopy and VATS and chest tube placement 08/12/[address] Alarcon. Echocardiogram EF 55%. ECG NSR with no ischemia. Chest tube to be removed today 2. Human immunodeficiency virus. 3. Pyelonephritis, on IV antibiotics. 4. Difficulty hearing DW RN Subjective Subjective Left VATS chest tube still connected. Chest tube to be removed today after CXR. RN at bedside Objective Last 24 Hour Vital Signs Date Time Temp Pulse Resp B/P (MAP) Pulse Ox O2 Delivery O2 Flow Rate FiO2 08/16/17 09:34 77 18 Room Air 21 08/16/17 08:00 97.3 63 19 114/68 98 97.3 08/16/17 04:00 97.7 80 18 117/68 94 Room Air 97.7 08/16/17 00:00 98.5 74 18 123/73 99 Room Air 98.5 08/15/17 20:00 99.1 77 18 135/81 96 Room Air 99.1 08/15/17 19:54 75 18 Room Air 08/15/17 15:54 98.5 74 18 122/76 96 98.5 08/15/17 12:00 98.1 75 19 128/79 95 98.1 Intake and Output 08/15/17 08/16/17 19:00 07:00 Intake Total 320 ml 1405 ml Output Total 1050 ml 1800 ml Balance -730 ml -395 ml Intake Oral 320 ml 800 ml IV Total 605 ml Output Urine Total 1050 ml 900 ml Drainage Total 900 ml # Voids 4 2 # Bowel Movements 1 Objective HEAD AND NECK: No JVD. LUNGS: Decreased breath sounds on left with left chest tube in place. CARDIOVASCULAR: Regular S1 and S2 with no gallop or murmur. ABDOMEN: Soft. EXTREMITIES: No pitting edema. Yoandy Proctor MD Aug 16, 2017 10:05
--- NOTE | 2017-08-16 10:17 | Diagnostic Imaging Report ---
Indication: Shortness of breath Technique: XRAY Chest 1v Comparison: 08/15/2017 Findings: Left chest tube is present without plain film evidence of pneumothorax. Left mid and basilar pleural and parenchymal opacities are again seen. There is again right basilar atelectasis. Clips are seen in the left upper abdomen. Impression: No significant change from 08/15/2017.
[2017-08-16 12:00] VITALS: BP 131/73
--- NOTE | 2017-08-16 13:50 | Infectious Diseases Prog Note ---
Assessment/Plan Problems: (1) CAP (community acquired pneumonia) Assessment & Plan: complicated with loculated pleural effusion, and sepsis due to invasive pneumococcal pneumonia , continue vancomycin, and switch cefepime to ertapenem for left empyema with MDR E. coli for two weeks. S/P VATS and decortication of his left pleural space , CT surgery is following . monitor CXR (2) Pleural effusion on left Assessment & Plan: loculated, with empyema due to MDR E. coli , and invasive pneumococcal pneumonia infection of the lung , S/P VATS and decortication of the left pleural space with chest tube placement , pleural tissue culture from OR grew MDR E. coli , now on ertapenem for two weeks . CT surgery and director of social services are following (3) Sepsis Assessment & Plan: due to the above, with invasive streptococcus pneumonia , continue vancomycin and cefepime , for now, pending repeated blood culture to confirm clearance, await 2D echo to rule out any vegetations (4) HIV (human immunodeficiency virus infection) Assessment & Plan: continue triumeq pending his viral load ad CD4 counts. follow up with HIV provider as an out patient Subjective Constitutional: Reports: no symptoms HEENT: Reports: congestion Respiratory: Reports: productive cough Breasts: Reports: no symptoms Cardiovascular: Reports: other - PLEURTIC CHEST PAIN Gastrointestinal/Abdominal: Reports: no symptoms Genitourinary: Reports: no symptoms Neurologic: Reports: no symptoms Psychiatric: Reports: no symptoms Skin: Reports: no symptoms Endocrine: Reports: no symptoms Hematologic: Reports: no symptoms Musculoskeletal: Reports: no symptoms Allergies: Coded Allergies: No Known Allergies (Unverified , 07/01/16) Subjective he was complaining of left side chest pain at the chest tube site which was 8 out of 10 , no fever or chills, had mild cough, but no phlegm Objective Vital Signs Last 24 Hour Vital Signs Date Time Temp Pulse Resp B/P (MAP) Pulse Ox O2 Delivery O2 Flow Rate FiO2 08/16/17 12:00 98.6 76 19 131/73 95 98.6 08/16/17 09:34 77 18 Room Air 21 08/16/17 08:00 97.3 63 19 114/68 98 97.3 08/16/17 04:00 97.7 80 18 117/68 94 Room Air 97.7 3/24/18 00:00 98.5 74 18 123/73 99 Room Air 98.5 08/15/17 20:00 99.1 77 18 135/81 96 Room Air 99.1 08/15/17 19:54 75 18 Room Air 08/15/17 15:54 98.5 74 18 122/76 96 98.5 Height (Feet): 5 Height (Inches): 8.00 Weight (Pounds): 157 General Appearance: WD/WN, no acute distress HEENT: normocephalic, atraumatic, anicteric, mucous membranes moist, PERRL Respiratory/Chest: chest wall non-tender, normal breath sounds, no respiratory distress, no accessory muscle use, decreased breath sounds, crackles/rales Cardiovascular: normal peripheral pulses, normal rate, regular rhythm, no gallop/murmur, no JVD Abdomen: normal bowel sounds, soft, non tender, no organomegaly, non distended , no mass, no scars Extremities: no cyanosis, no clubbing Skin: no rash, no lesions, no ulcers Neurologic/Psychiatric: alert, oriented x 3, responsive Current Medications Medications (Trade) Dose Ordered Sig/Bhavani Route PRN Reason Start Time Stop Time Status Last Admin Dose Admin Acetaminophen (Tylenol) 650 mg Q4H PRN ORAL Mild Pain (Pain Scale 1-2) 08/13/17 12:00 09/08/17 19:59 08/16/17 02:26 Acetaminophen/ Hydrocodone Bitart ([place] 10/325) 1 tab Q4H PRN ORAL For Pain Level 5-6 08/13/17 11:30 08/19/17 19:29 08/13/17 13:21 Acetaminophen/ Hydrocodone Bitart ([place] 5/325) 1 tab Q4H PRN ORAL Moderate Pain Scale 3-4 08/13/17 11:30 08/19/17 19:29 Albuterol/ Ipratropium (Albuterol/ Ipratropium) 3 ml Q4H PRN HHN Shortness of Breath 08/13/17 11:30 08/17/17 19:29 Dextrose (Dextrose 50%) STAT PRN IV Hypoglycemia 08/13/17 19:30 09/11/17 19:29 Docusate Sodium (Colace) 100 mg TWICE A DAY ORAL 08/13/17 18:00 09/11/17 20:59 08/16/17 09:43 Ertapenem 1 gm/ Sodium Chloride 110 ml @ 220 mls/hr Q24HRS IV 08/16/17 18:00 08/21/17 17:59 Heparin Sodium (Porcine) (Heparin 5000 units/ml) 5,000 units EVERY 12 HOURS SUBQ 08/13/17 21:00 09/11/17 20:59 08/16/17 09:44 Morphine Sulfate (Morphine Sulfate) 2 mg Q4H PRN IVP Severe Pain (Pain Scale 7-10) 08/13/17 11:30 08/19/17 19:29 08/14/17 00:54 Nystatin (Nystatin) 5 ml TID ORAL 08/14/17 22:00 08/21/17 21:59 08/16/17 12:57 Ondansetron HCl (Zofran) 4 mg Q6H PRN IVP Nausea & Vomiting 08/13/17 13:30 09/11/17 19:29 Patient Own Medication (Patient's Own Med) 1 ea DAILY ORAL 08/14/17 09:00 09/08/17 15:59 08/16/17 09:43 Vancomycin HCl (Vanco rx to dose) 1 ea DAILYPRN PRN MISC Per rx protocol 08/13/17 19:30 09/11/17 19:29 Vancomycin HCl 1 gm/Dextrose 275 ml @ 183.708 mls/hr Q6HR IVPB 08/13/17 13:00 08/17/17 12:59 08/16/17 12:53 Marvin Bullock M.D. Aug 16, 2017 13:50
[2017-08-16 16:00] VITALS: BP 128/80
[2017-08-16] MEDS ORDERED: Tubing IV Secondary IV ONE (17:48)
[2017-08-16] MEDS ORDERED: NS 500ML ONE (17:48)
[2017-08-16 20:00] VITALS: BP 124/76
[2017-08-16] MEDS: HYDROcodone/Acetamin 10/325 tab ORAL PRN (20:33)
[2017-08-16] MEDS ORDERED: LORazepam 1mg tab ORAL PRN (21:30)
[2017-08-16] MEDS: Ertapenem 1 GM in NS 110 ML IV SCH (22:04)
--- NOTE | 2017-08-16 23:15 | Pulmonology Progress Note ---
Assessment/Plan Assessment/Plan ASSESSMENT: * Febrile illness & sepsis, CAP/empyema + UTI with PN * Multilobar CAP with loculated L sided effusion/empyema S/P L VATS decortication 08/12/17, * GPC sepsis * GPC UTI with PN * Marked leukocytosis 2/2 above - IMPROVED * HIV with unknown CD4 count * Anemai, likely AoCD * [place] PLAN: * Change CT to H2O seal, likely D/C later today or tomm * Pain control/supportive care * IS * Continue current antimicrobial therapy (Vanco, Azithro, Cefepime) per ID * F/U OR Path * Optimize pulmonary hygiene/mobilize as tolerated * PRN O2 to keep SaO2 > 90% * PRN HHN's * PRN Robitussin * cART per ID, F/U CD4 count and VL * DVT Px: Hep SQ * Dispo planning Subjective Allergies: Coded Allergies: No Known Allergies (Unverified , 07/01/16) Objective Last 24 Hour Vital Signs Date Time Temp Pulse Resp B/P (MAP) Pulse Ox O2 Delivery O2 Flow Rate FiO2 08/16/17 21:32 98.9 08/16/17 20:33 98.9 08/16/17 20:00 98.9 79 20 124/76 96 98.9 08/16/17 19:32 74 20 Room Air 08/16/17 16:00 98.9 67 19 128/80 98 98.9 08/16/17 12:00 98.6 76 19 131/73 95 98.6 08/16/17 09:34 77 18 Room Air 21 08/16/17 08:00 97.3 63 19 114/68 98 97.3 08/16/17 04:00 97.7 80 18 117/68 94 Room Air 97.7 08/16/17 00:00 98.5 74 18 123/73 99 Room Air 98.5 Intake and Output 08/15/17 08/16/17 19:00 07:00 Intake Total 320 ml 1405 ml Output Total 1050 ml 1800 ml Balance -730 ml -395 ml Intake Oral 320 ml 800 ml IV Total 605 ml Output Urine Total 1050 ml 900 ml Drainage Total 900 ml # Voids 4 2 # Bowel Movements 1 Current Medications Medications (Trade) Dose Ordered Sig/Bhavani Route PRN Reason Start Time Stop Time Status Last Admin Dose Admin Acetaminophen (Tylenol) 650 mg Q4H PRN ORAL Mild Pain (Pain Scale 1-2) 08/13/17 12:00 09/08/17 19:59 08/16/17 02:26 Acetaminophen/ Hydrocodone Bitart ([place] 10/325) 1 tab Q4H PRN ORAL For Pain Level 5-6 08/13/17 11:30 08/19/17 19:29 08/16/17 20:33 Acetaminophen/ Hydrocodone Bitart ([place] 5/325) 1 tab Q4H PRN ORAL Moderate Pain Scale 3-4 08/13/17 11:30 08/19/17 19:29 Albuterol/ Ipratropium (Albuterol/ Ipratropium) 3 ml Q4H PRN HHN Shortness of Breath 08/13/17 11:30 08/17/17 19:29 Dextrose (Dextrose 50%) STAT PRN IV Hypoglycemia 08/13/17 19:30 09/11/17 19:29 Docusate Sodium (Colace) 100 mg TWICE A DAY ORAL 08/13/17 18:00 09/11/17 20:59 08/16/17 09:43 Ertapenem 1 gm/ Sodium Chloride 110 ml @ 220 mls/hr Q24HRS IV 08/16/17 18:00 08/21/17 17:59 08/16/17 22:04 Heparin Sodium (Porcine) (Heparin 5000 units/ml) 5,000 units EVERY 12 HOURS SUBQ 08/13/17 21:00 09/11/17 20:59 08/16/17 20:44 Lorazepam (Ativan) 1 mg Q4H PRN ORAL For Anxiety 08/16/17 21:30 08/23/17 21:29 Morphine Sulfate (Morphine Sulfate) 2 mg Q4H PRN IVP Severe Pain (Pain Scale 7-10) 08/13/17 11:30 08/19/17 19:29 08/14/17 00:54 Nystatin (Nystatin) 5 ml TID ORAL 08/14/17 22:00 08/21/17 21:59 08/16/17 19:46 Ondansetron HCl (Zofran) 4 mg Q6H PRN IVP Nausea & Vomiting 08/13/17 13:30 09/11/17 19:29 Patient Own Medication (Patient's Own Med) 1 ea DAILY ORAL 08/14/17 09:00 09/08/17 15:59 08/16/17 09:43 Vancomycin HCl (Vanco rx to dose) 1 ea DAILYPRN PRN MISC Per rx protocol 08/13/17 19:30 09/11/17 19:29 Vancomycin HCl 1 gm/Dextrose 275 ml @ 183.708 mls/hr Q6HR IVPB 08/13/17 13:00 08/17/17 12:59 08/16/17 19:46 Current Medications Medications (Trade) Dose Ordered Sig/Bhavani Route PRN Reason Start Time Stop Time Status Last Admin Dose Admin Acetaminophen (Tylenol) 650 mg Q4H PRN ORAL Mild Pain (Pain Scale 1-2) 08/13/17 12:00 09/08/17 19:59 08/16/17 02:26 Acetaminophen/ Hydrocodone Bitart ([place] 10/325) 1 tab Q4H PRN ORAL For Pain Level 5-6 08/13/17 11:30 08/19/17 19:29 08/16/17 20:33 Acetaminophen/ Hydrocodone Bitart ([place] 5/325) 1 tab Q4H PRN ORAL Moderate Pain Scale 3-4 08/13/17 11:30 08/19/17 19:29 Albuterol/ Ipratropium (Albuterol/ Ipratropium) 3 ml Q4H PRN HHN Shortness of Breath 08/13/17 11:30 08/17/17 19:29 Dextrose (Dextrose 50%) STAT PRN IV Hypoglycemia 08/13/17 19:30 09/11/17 19:29 Docusate Sodium (Colace) 100 mg TWICE A DAY ORAL 08/13/17 18:00 09/11/17 20:59 08/16/17 09:43 Ertapenem 1 gm/ Sodium Chloride 110 ml @ 220 mls/hr Q24HRS IV 08/16/17 18:00 08/21/17 17:59 08/16/17 22:04 Heparin Sodium (Porcine) (Heparin 5000 units/ml) 5,000 units EVERY 12 HOURS SUBQ 08/13/17 21:00 09/11/17 20:59 08/16/17 20:44 Lorazepam (Ativan) 1 mg Q4H PRN ORAL For Anxiety 08/16/17 21:30 08/23/17 21:29 Morphine Sulfate (Morphine Sulfate) 2 mg Q4H PRN IVP Severe Pain (Pain Scale 7-10) 08/13/17 11:30 08/19/17 19:29 08/14/17 00:54 Nystatin (Nystatin) 5 ml TID ORAL 08/14/17 22:00 08/21/17 21:59 08/16/17 19:46 Ondansetron HCl (Zofran) 4 mg Q6H PRN IVP Nausea & Vomiting 08/13/17 13:30 09/11/17 19:29 Patient Own Medication (Patient's Own Med) 1 ea DAILY ORAL 08/14/17 09:00 09/08/17 15:59 08/16/17 09:43 Vancomycin HCl (Vanco rx to dose) 1 ea DAILYPRN PRN MISC Per rx protocol 08/13/17 19:30 09/11/17 19:29 Vancomycin HCl 1 gm/Dextrose 275 ml @ 183.708 mls/hr Q6HR IVPB 08/13/17 13:00 08/17/17 12:59 08/16/17 19:46 SHANTA DECKER 24, 2018 23:15
--- NOTE | 2017-08-16 23:51 | General Progress Note ---
Assessment/Plan Assessment/Plan 1. Anemia of chronic disease. --> Continue to closely monitor. Likely anemia is related to chronic disease. --> Hgb stable at this time. No blood transfusion required. --> Anemia workup reviewed. Iron 14, TIBC 116, Vit b12 476, Folate 11.4 --> Monitor and trend cbc 2. Leukocytosis, likely secondary to pneumonia. --> CT Surgery following in addition to decortication pending. --> Improving 3. Pleural effusion, the patient is status post VATS, decortication and chest tube placement. 4. Sepsis secondary to streptococcus, on broad-spectrum antibiotics. --> Improving 5. Urinary tract infection. 6. Human immunodeficiency virus/Acquired immunodeficiency syndrome. Subjective Date patient seen: Aug 16, 2017 Constitutional: Denies: no symptoms, chills, diaphoresis, fever, malaise, weakness, other HEENT: Denies: no symptoms, eye pain, blurred vision, tearing, double vision, ear pain, ear discharge, nose pain, nose congestion, throat pain, throat swelling, mouth pain, mouth swelling, other Cardiovascular: Denies: no symptoms, chest pain, edema, irregular heart rate, lightheadedness, palpitations, syncope, other Respiratory: Denies: no symptoms, cough, orthopnea, shortness of breath, SOB with excertion, SOB at rest, sputum, stridor, wheezing, other Gastrointestinal/Abdominal: Denies: no symptoms, abdomen distended, abdominal pain, black stools, tarry stools, blood in stool, constipated, diarrhea, difficulty swallowing, nausea, poor appetite, poor fluid intake, rectal bleeding , vomiting, other Genitourinary: Denies: no symptoms, burning, discharge, frequency, flank pain, hematuria, incontinence, pain, urgency, other Neurologic/Psychiatric: Denies: no symptoms, anxiety, depressed, emotional problems, headache, numbness, paresthesia, pre-existing deficit, seizure, tingling, tremors, weakness, other Hematologic/Lymphatic: Reports: anemia Allergies: Coded Allergies: No Known Allergies (Unverified , 07/01/16) Subjective Some sob. No active bleed. H/H stable. Objective Last 24 Hour Vital Signs Date Time Temp Pulse Resp B/P (MAP) Pulse Ox O2 Delivery O2 Flow Rate FiO2 08/16/17 21:32 98.9 08/16/17 20:33 98.9 08/16/17 20:00 98.9 79 20 124/76 96 98.9 08/16/17 19:32 74 20 Room Air 08/16/17 16:00 98.9 67 19 128/80 98 98.9 08/16/17 12:00 98.6 76 19 131/73 95 98.6 08/16/17 09:34 77 18 Room Air 21 08/16/17 08:00 97.3 63 19 114/68 98 97.3 08/16/17 04:00 97.7 80 18 117/68 94 Room Air 97.7 08/16/17 00:00 98.5 74 18 123/73 99 Room Air 98.5 Intake and Output 08/15/17 08/16/17 19:00 07:00 Intake Total 320 ml 1405 ml Output Total 1050 ml 1800 ml Balance -730 ml -395 ml Intake Oral 320 ml 800 ml IV Total 605 ml Output Urine Total 1050 ml 900 ml Drainage Total 900 ml # Voids 4 2 # Bowel Movements 1 Height (Feet): 5 Height (Inches): 8.00 Weight (Pounds): 157 General Appearance: no apparent distress Respiratory/Chest: decreased breath sounds Abdomen: soft Wayne Ortiz MD Aug 16, 2017 23:51
[2017-08-17] VITALS: BP 124/64
[2017-08-17 04:00] VITALS: BP 126/75
--- NOTE | 2017-08-17 04:30 | Progress Note ---
DATE: 08/16/2017 SUBJECTIVE: This is a 57-year-old white male, who is currently doing better. His shortness of breath is improving. OBJECTIVE: VITAL SIGNS: Blood pressure 110/70, pulse 75, and respirations 18. SKIN: Good skin turgor. CHEST: Bilaterally few crackles. Decreased breath sounds. CARDIOVASCULAR: Regular rhythm. No gallop. No murmur. ABDOMEN: Soft. EXTREMITIES: CCE. ASSESSMENT: 1. Bilateral pleural effusion, status post thoracocentesis and left-sided chest tube. 2. Hypertension. PLAN: We will currently continue current treatment, chest x-ray, and discontinue chest tube. To continue supportive treatment. Bronchodilator treatment. Andry Owen M.D. DR: Terrie JOB#: [id number] CC:
[2017-08-17 08:00] VITALS: BP 113/76
[2017-08-17] MEDS: Nystatin Susp 500,000 units/5ml ORAL SCH ×3 (08:37→17:25)
[2017-08-17] MEDS: Heparin 5000 units/ml inj SUBQ SCH ×2 (08:45→21:35)
[2017-08-17] MEDS: Docusate 100mg cap ORAL SCH ×2 (08:46→17:24)
[2017-08-17] MEDS: HYDROcodone/Acetamin 10/325 tab ORAL PRN ×2 (08:51→21:34)
--- NOTE | 2017-08-17 10:13 | Diagnostic Imaging Report ---
Indication: Status post chest tube removal Technique: XRAY Chest 1v Comparison: 08/16/2017 at 0830 hours Findings: Left chest tube has been removed. There is no pneumothorax. The heart and lungs are stable. Impression: Interval removal of left chest tube without definite pneumothorax. Otherwise stable chest.
[2017-08-17] MEDS: Vancomycin 1250mg/D5W 250ml IVPB SCH ×2 (10:38→18:10)
--- NOTE | 2017-08-17 11:10 | Diagnostic Imaging Report ---
Indication: Shortness of breath Technique: XRAY Chest 1v Comparison: 08/16/2017 Findings: Cardiomediastinal silhouette is stable. There is no pneumothorax. The lungs are unchanged without new infiltrates. Osseous structures are stable. Impression: No significant change from 08/16/2017.
[2017-08-17 12:00] VITALS: BP 120/68
--- NOTE | 2017-08-17 12:30 | Progress Note ---
DATE: 08/17/2017 SUBJECTIVE: This is a 57-year-old male currently doing better. Short of breath is improving. His pleural fluid cultures are growing ESBL . OBJECTIVE: VITAL SIGNS: Blood pressure is stable. CHEST: Bilateral crackles. CARDIOVASCULAR: Regular rhythm. No gallop. No murmur. ABDOMEN: Soft. EXTREMITIES: No CCE. ASSESSMENT AND PLAN: 1. Pleural effusion. 2. Pneumonia. 3. Generalized weakness. Continue current antibiotics. He is on isolation. Continue supportive treatment. Discussed with the charge nurse. Andry Owen M.D. DR: Lay JOB#: [id number] CC:
[2017-08-17] MEDS: Vancomycin 1 GM in D5W 275 ML IVPB SCH (14:06)
[2017-08-17 16:00] VITALS: BP 148/87
[2017-08-17] MEDS: Ertapenem 1 GM in NS 110 ML IV SCH (17:25)
--- NOTE | 2017-08-17 17:56 | Pulmonology Progress Note ---
Assessment/Plan Assessment/Plan ASSESSMENT: * Febrile illness & sepsis, CAP/empyema + UTI with PN * Multilobar CAP with loculated L sided effusion/empyema S/P L VATS decortication 08/12/17, * GPC sepsis * GPC UTI with PN * Marked leukocytosis 2/2 above - IMPROVED * HIV with unknown CD4 count * Anemai, likely AoCD * [place] PLAN: * ct removed and cxr stable * Pain control/supportive care * IS * Continue current antimicrobial therapy (Vanco, Azithro, Cefepime) per ID * path negative, micro pending * check ra sat * dc planning * Optimize pulmonary hygiene/mobilize as tolerated * PRN O2 to keep SaO2 > 90% * PRN HHN's * PRN Robitussin * cART per ID, F/U CD4 count and VL * DVT Px: Hep SQ * Dispo planning Subjective ROS Limited/Unobtainable: Yes Constitutional: Reports: no symptoms HEENT: Repors: no symptoms Respiratory: Reports: dry cough Cardiovascular: Reports: no symptoms Gastrointestinal/Abdominal: Reports: no symptoms Allergies: Coded Allergies: No Known Allergies (Unverified , 07/01/16) Subjective doing well today HABEMATOLEL no cpnv or bleding cough nonproductive on ra Objective Last 24 Hour Vital Signs Date Time Temp Pulse Resp B/P (MAP) Pulse Ox O2 Delivery O2 Flow Rate FiO2 08/17/17 16:00 97.3 71 20 148/87 97 Room Air 97.3 08/17/17 12:00 97.6 69 19 120/68 95 Room Air 97.6 08/17/17 08:00 99.4 75 20 113/76 95 Room Air 99.4 08/17/17 06:56 75 18 Room Air 08/17/17 06:50 98.1 08/17/17 04:00 98.1 73 20 126/75 97 98.1 08/17/17 00:00 98.7 71 20 124/64 94 98.7 08/16/17 21:32 98.9 08/16/17 20:33 98.9 08/16/17 20:00 98.9 79 20 124/76 96 98.9 08/16/17 19:32 74 20 Room Air Intake and Output 08/16/17 08/17/17 19:00 07:00 Intake Total 600 ml 660.000 ml Output Total 700 ml 400 ml Balance -100 ml 260.000 ml Intake Oral 600 ml IV Total 660.000 ml Output Urine Total 700 ml 400 ml # Voids 4 General Appearance: WD/WN HEENT: thrush Respiratory/Chest: lungs clear Cardiovascular: normal rate, regular rhythm Abdomen: soft, non tender, no organomegaly Extremities: no cyanosis Skin: no rash Neurologic/Psychiatric: 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 manager II-XII grossly normal, oriented x 3, responsive Lymphatic: no neck adenopathy cxr stable ct removed Laboratory Tests 08/17/17 04:50: Vancomycin Level Trough 23.7H Current Medications Medications (Trade) Dose Ordered Sig/Bhavani Route PRN Reason Start Time Stop Time Status Last Admin Dose Admin Acetaminophen (Tylenol) 650 mg Q4H PRN ORAL Mild Pain (Pain Scale 1-2) 08/13/17 12:00 09/08/17 19:59 08/17/17 06:50 Acetaminophen/ Hydrocodone Bitart ([place] 10/325) 1 tab Q4H PRN ORAL For Pain Level 5-6 08/13/17 11:30 08/19/17 19:29 08/17/17 08:51 Acetaminophen/ Hydrocodone Bitart ([place] 5/325) 1 tab Q4H PRN ORAL Moderate Pain Scale 3-4 08/13/17 11:30 08/19/17 19:29 Albuterol/ Ipratropium (Albuterol/ Ipratropium) 3 ml Q4H PRN HHN Shortness of Breath 08/13/17 11:30 08/17/17 19:29 Dextrose (Dextrose 50%) STAT PRN IV Hypoglycemia 08/13/17 19:30 09/11/17 19:29 Docusate Sodium (Colace) 100 mg TWICE A DAY ORAL 08/13/17 18:00 09/11/17 20:59 08/16/17 09:43 Ertapenem 1 gm/ Sodium Chloride 110 ml @ 220 mls/hr Q24HRS IV 08/16/17 18:00 08/21/17 17:59 08/17/17 17:25 Heparin Sodium (Porcine) (Heparin 5000 units/ml) 5,000 units EVERY 12 HOURS SUBQ 08/13/17 21:00 09/11/17 20:59 08/17/17 08:45 Lansoprazole (Prevacid) 30 mg DAILYPRN PRN ORAL ACID REFLUX 08/17/17 13:45 09/16/17 13:44 08/17/17 17:30 Lorazepam (Ativan) 1 mg Q4H PRN ORAL For Anxiety 08/16/17 21:30 08/23/17 21:29 Morphine Sulfate (Morphine Sulfate) 2 mg Q4H PRN IVP Severe Pain (Pain Scale 7-10) 08/13/17 11:30 08/19/17 19:29 08/14/17 00:54 Nystatin (Nystatin) 5 ml TID ORAL 08/14/17 22:00 08/21/17 21:59 08/17/17 17:25 Ondansetron HCl (Zofran) 4 mg Q6H PRN IVP Nausea & Vomiting 08/13/17 13:30 09/11/17 19:29 Patient Own Medication (Patient's Own Med) 1 ea DAILY ORAL 08/14/17 09:00 08/17/17 23:59 08/17/17 08:37 Patient Own Medication (Patient's Own Med) 1 ea DAILY ORAL 08/18/17 09:00 09/17/17 08:59 Vancomycin HCl (Vanco rx to dose) 1 ea DAILYPRN PRN MISC Per rx protocol 08/13/17 19:30 09/11/17 19:29 Vancomycin HCl/ Dextrose 250 ml @ 166.667 mls/hr Q8HR@0200,1000,1800 IVPB 08/17/17 10:00 08/22/17 09:59 08/17/17 10:38 SHANTA DECKER DO Aug 17, 2017 17:56
[2017-08-17 20:00] VITALS: BP 126/81
--- NOTE | 2017-08-17 22:05 | Infectious Diseases Prog Note ---
Assessment/Plan Problems: (1) CAP (community acquired pneumonia) Assessment & Plan: complicated with loculated pleural effusion, and sepsis due to invasive pneumococcal pneumonia , will stop vancomycin, and continue ertapenem for left empyema with ESBL producing E. coli for two weeks. S/P VATS and decortication of his left pleural space , CT surgery is following . monitor CXR (2) Pleural effusion on left Assessment & Plan: loculated, with empyema due to MDR E. coli , and invasive pneumococcal pneumonia infection of the lung , S/P VATS and decortication of the left pleural space with chest tube placement , pleural tissue culture from OR grew MDR E. coli , now on ertapenem for two weeks . CT surgery and fleet service clerk are following (3) Sepsis Assessment & Plan: due to the above, with invasive streptococcus pneumonia , continue vancomycin and cefepime , for now, pending repeated blood culture to confirm clearance, await 2D echo to rule out any vegetations (4) HIV (human immunodeficiency virus infection) Assessment & Plan: continue triumeq pending his viral load ad CD4 counts. follow up with HIV provider as an out patient Subjective Constitutional: Reports: no symptoms HEENT: Reports: no symptoms Respiratory: Reports: productive cough Breasts: Reports: no symptoms Cardiovascular: Reports: no symptoms Gastrointestinal/Abdominal: Reports: no symptoms Genitourinary: Reports: no symptoms Neurologic: Reports: no symptoms Psychiatric: Reports: no symptoms Skin: Reports: no symptoms Endocrine: Reports: no symptoms Hematologic: Reports: no symptoms Musculoskeletal: Reports: no symptoms Allergies: Coded Allergies: No Known Allergies (Unverified , 07/01/16) Subjective he was complaining of left side chest pain at the chest tube site which was 8 out of 10 , no fever or chills, had mild cough, but no phlegm Objective Vital Signs Last 24 Hour Vital Signs Date Time Temp Pulse Resp B/P (MAP) Pulse Ox O2 Delivery O2 Flow Rate FiO2 08/17/17 21:06 98.0 Room Air 98.0 08/17/17 20:25 74 20 Room Air 08/17/17 20:00 87 22 126/81 96 08/17/17 16:00 97.3 71 20 148/87 97 Room Air 97.3 08/17/17 12:00 97.6 69 19 120/68 95 Room Air 97.6 08/17/17 08:00 99.4 75 20 113/76 95 Room Air 99.4 08/17/17 06:56 75 18 Room Air 08/17/17 06:50 98.1 08/17/17 04:00 98.1 73 20 126/75 97 98.1 08/17/17 00:00 98.7 71 20 124/64 94 98.7 Height (Feet): 5 Height (Inches): 8.00 Weight (Pounds): 157 General Appearance: WD/WN, no acute distress HEENT: normocephalic, atraumatic, anicteric, mucous membranes moist, PERRL Respiratory/Chest: chest wall non-tender, normal breath sounds, no respiratory distress, no accessory muscle use, decreased breath sounds Cardiovascular: normal peripheral pulses, normal rate, regular rhythm, no gallop/murmur, no JVD Abdomen: normal bowel sounds, soft, non tender, no organomegaly, non distended , no mass, no scars Genitourinary: normal external genitalia Extremities: no cyanosis, no clubbing Skin: no rash, no lesions, no ulcers Neurologic/Psychiatric: alert, responsive Laboratory Tests Test 08/17/17 04:50 Vancomycin Level Trough 23.7 ug/mL (5.0-12.0) H Current Medications Medications (Trade) Dose Ordered Sig/Bhavani Route PRN Reason Start Time Stop Time Status Last Admin Dose Admin Acetaminophen (Tylenol) 650 mg Q4H PRN ORAL Mild Pain (Pain Scale 1-2) 08/13/17 12:00 09/08/17 19:59 08/17/17 06:50 Acetaminophen/ Hydrocodone Bitart ([place] 10/325) 1 tab Q4H PRN ORAL For Pain Level 5-6 08/13/17 11:30 08/19/17 19:29 08/17/17 21:34 Acetaminophen/ Hydrocodone Bitart ([place] 5/325) 1 tab Q4H PRN ORAL Moderate Pain Scale 3-4 08/13/17 11:30 08/19/17 19:29 Dextrose (Dextrose 50%) STAT PRN IV Hypoglycemia 08/13/17 19:30 09/11/17 19:29 Docusate Sodium (Colace) 100 mg TWICE A DAY ORAL 08/13/17 18:00 09/11/17 20:59 08/16/17 09:43 Ertapenem 1 gm/ Sodium Chloride 110 ml @ 220 mls/hr Q24HRS IV 08/16/17 18:00 08/21/17 17:59 08/17/17 17:25 Heparin Sodium (Porcine) (Heparin 5000 units/ml) 5,000 units EVERY 12 HOURS SUBQ 08/13/17 21:00 09/11/17 20:59 08/17/17 21:35 Lansoprazole (Prevacid) 30 mg DAILYPRN PRN ORAL ACID REFLUX 08/17/17 13:45 09/16/17 13:44 08/17/17 17:30 Lorazepam (Ativan) 1 mg Q4H PRN ORAL For Anxiety 08/16/17 21:30 08/23/17 21:29 Morphine Sulfate (Morphine Sulfate) 2 mg Q4H PRN IVP Severe Pain (Pain Scale 7-10) 08/13/17 11:30 08/19/17 19:29 08/14/17 00:54 Nystatin (Nystatin) 5 ml TID ORAL 08/14/17 22:00 08/21/17 21:59 08/17/17 17:25 Ondansetron HCl (Zofran) 4 mg Q6H PRN IVP Nausea & Vomiting 08/13/17 13:30 09/11/17 19:29 Patient Own Medication (Patient's Own Med) 1 ea DAILY ORAL 08/14/17 09:00 08/17/17 23:59 08/17/17 08:37 Patient Own Medication (Patient's Own Med) 1 ea DAILY ORAL 08/18/17 09:00 09/17/17 08:59 Vancomycin HCl (Vanco rx to dose) 1 ea DAILYPRN PRN MISC Per rx protocol 08/13/17 19:30 09/11/17 19:29 Vancomycin HCl/ Dextrose 250 ml @ 166.667 mls/hr Q8HR@0200,1000,1800 IVPB 08/17/17 10:00 08/22/17 09:59 08/17/17 18:10 Marvin Bullock M.D. Aug 17, 2017 22:05
--- NOTE | 2017-08-17 22:10 | Nephrology Progress Note ---
Assessment/Plan Problem List: (1) CAP (community acquired pneumonia) (2) Pleural effusion on left (3) HIV (human immunodeficiency virus infection) (4) Sepsis Assessment: GPC in blood. (5) UTI (urinary tract infection) Plan Abx per ID. Follow up cx's. S/p VATS. f/u recs per C CTS. Subjective Subjective late entry for 08/16 - CT in place. Has pain ast insertion site. no sob. Objective Objective Last 24 Hour Vital Signs Date Time Temp Pulse Resp B/P (MAP) Pulse Ox O2 Delivery O2 Flow Rate FiO2 08/17/17 21:06 98.0 Room Air 98.0 08/17/17 20:25 74 20 Room Air 08/17/17 20:00 87 22 126/81 96 08/17/17 16:00 97.3 71 20 148/87 97 Room Air 97.3 08/17/17 12:00 97.6 69 19 120/68 95 Room Air 97.6 08/17/17 08:00 99.4 75 20 113/76 95 Room Air 99.4 08/17/17 06:56 75 18 Room Air 08/17/17 06:50 98.1 08/17/17 04:00 98.1 73 20 126/75 97 98.1 08/17/17 00:00 98.7 71 20 124/64 94 98.7 Intake and Output 08/16/17 08/17/17 19:00 07:00 Intake Total 600 ml 660.000 ml Output Total 700 ml 400 ml Balance -100 ml 260.000 ml Intake Oral 600 ml IV Total 660.000 ml Output Urine Total 700 ml 400 ml # Voids 4 Laboratory Tests 08/17/17 04:50: Vancomycin Level Trough 23.7H Height (Feet): 5 Height (Inches): 8.00 Weight (Pounds): 157 General Appearance: no apparent distress Cardiovascular: normal rate, regular rhythm Respiratory/Chest: decreased breath sounds Abdomen: non tender, soft CASTRO VAUGHAN Aug 17, 2017 22:10
--- NOTE | 2017-08-17 22:11 | Nephrology Progress Note ---
Assessment/Plan Problem List: (1) CAP (community acquired pneumonia) (2) Pleural effusion on left (3) HIV (human immunodeficiency virus infection) (4) Sepsis Assessment: GPC in blood. (5) UTI (urinary tract infection) Plan Abx per ID. Follow up cx's. S/p VATS. f/u recs per CTS. Pulm and cardio following. d/c planning soon. Subjective Subjective CT removed. Doing well Objective Objective Last 24 Hour Vital Signs Date Time Temp Pulse Resp B/P (MAP) Pulse Ox O2 Delivery O2 Flow Rate FiO2 08/17/17 21:06 98.0 Room Air 98.0 08/17/17 20:25 74 20 Room Air 08/17/17 20:00 87 22 126/81 96 08/17/17 16:00 97.3 71 20 148/87 97 Room Air 97.3 08/17/17 12:00 97.6 69 19 120/68 95 Room Air 97.6 08/17/17 08:00 99.4 75 20 113/76 95 Room Air 99.4 08/17/17 06:56 75 18 Room Air 08/17/17 06:50 98.1 08/17/17 04:00 98.1 73 20 126/75 97 98.1 08/17/17 00:00 98.7 71 20 124/64 94 98.7 Intake and Output 08/16/17 08/17/17 19:00 07:00 Intake Total 600 ml 660.000 ml Output Total 700 ml 400 ml Balance -100 ml 260.000 ml Intake Oral 600 ml IV Total 660.000 ml Output Urine Total 700 ml 400 ml # Voids 4 Laboratory Tests 08/17/17 04:50: Vancomycin Level Trough 23.7H Height (Feet): 5 Height (Inches): 8.00 Weight (Pounds): 157 General Appearance: no apparent distress Cardiovascular: normal rate, regular rhythm Respiratory/Chest: lungs clear, no accessory muscle use Abdomen: non tender, soft Extremities: non-pitting CASTRO VAUGHAN Aug 17, 2017 22:11
--- NOTE | 2017-08-17 23:55 | General Progress Note ---
Assessment/Plan Assessment/Plan 1. Anemia of chronic disease. --> Continue to closely monitor. Likely anemia is related to chronic disease. --> Hgb stable at this time. No blood transfusion required. --> Anemia workup reviewed. Iron 14, TIBC 116, Vit b12 476, Folate 11.4 --> Monitor and trend cbc 2. Leukocytosis, likely secondary to pneumonia. --> CT Surgery following in addition to decortication pending. --> Wbc count within normal levels at this time --> On antibiotics. 3. Pleural effusion, the patient is status post VATS, decortication and chest tube placement. 4. Sepsis secondary to streptococcus, on broad-spectrum antibiotics. --> Improving 5. Urinary tract infection. 6. Human immunodeficiency virus/Acquired immunodeficiency syndrome. Subjective Date patient seen: Aug 17, 2017 Constitutional: Denies: no symptoms, chills, diaphoresis, fever, malaise, weakness, other HEENT: Denies: no symptoms, eye pain, blurred vision, tearing, double vision, ear pain, ear discharge, nose pain, nose congestion, throat pain, throat swelling, mouth pain, mouth swelling, other Cardiovascular: Denies: no symptoms, chest pain, edema, irregular heart rate, lightheadedness, palpitations, syncope, other Respiratory: Denies: no symptoms, cough, orthopnea, shortness of breath, SOB with excertion, SOB at rest, sputum, stridor, wheezing, other Gastrointestinal/Abdominal: Denies: no symptoms, abdomen distended, abdominal pain, black stools, tarry stools, blood in stool, constipated, diarrhea, difficulty swallowing, nausea, poor appetite, poor fluid intake, rectal bleeding , vomiting, other Genitourinary: Denies: no symptoms, burning, discharge, frequency, flank pain, hematuria, incontinence, pain, urgency, other Neurologic/Psychiatric: Denies: no symptoms, anxiety, depressed, emotional problems, headache, numbness, paresthesia, pre-existing deficit, seizure, tingling, tremors, weakness, other Hematologic/Lymphatic: Reports: anemia Allergies: Coded Allergies: No Known Allergies (Unverified , 07/01/16) Subjective On antibiotics for ongoing infection. No acute distress. Objective Last 24 Hour Vital Signs Date Time Temp Pulse Resp B/P (MAP) Pulse Ox O2 Delivery O2 Flow Rate FiO2 08/17/17 21:06 98.0 Room Air 98.0 08/17/17 20:25 74 20 Room Air 08/17/17 20:00 Room Air 08/17/17 20:00 87 22 126/81 96 08/17/17 16:00 97.3 71 20 148/87 97 Room Air 97.3 08/17/17 12:00 97.6 69 19 120/68 95 Room Air 97.6 08/17/17 08:00 99.4 75 20 113/76 95 Room Air 99.4 08/17/17 06:56 75 18 Room Air 08/17/17 06:50 98.1 08/17/17 04:00 98.1 73 20 126/75 97 98.1 08/17/17 00:00 98.7 71 20 124/64 94 98.7 Intake and Output 08/16/17 08/17/17 19:00 07:00 Intake Total 600 ml 660.000 ml Output Total 700 ml 400 ml Balance -100 ml 260.000 ml Intake Oral 600 ml IV Total 660.000 ml Output Urine Total 700 ml 400 ml # Voids 4 Laboratory Tests 08/17/17 04:50: Vancomycin Level Trough 23.7H Height (Feet): 5 Height (Inches): 8.00 Weight (Pounds): 157 General Appearance: no apparent distress Respiratory/Chest: decreased breath sounds Abdomen: soft Wayne Ortiz MD Aug 17, 2017 23:55
[2017-08-18] VITALS: BP 131/83
[2017-08-18 04:00] VITALS: BP 128/75
[2017-08-18 08:00] VITALS: BP 126/65
[2017-08-18] MEDS: Nystatin Susp 500,000 units/5ml ORAL SCH ×3 (09:06→17:21)
[2017-08-18] MEDS: Docusate 100mg cap ORAL SCH ×2 (09:06→17:21)
[2017-08-18] MEDS: Heparin 5000 units/ml inj SUBQ SCH ×2 (09:08→21:00)
--- NOTE | 2017-08-18 09:22 | Pulmonology Progress Note ---
Assessment/Plan Problems: (1) CAP (community acquired pneumonia) (2) Pleural effusion on left Assessment & Plan: LOCULATED, likely para-pneumonic vs empyema (3) Sepsis (4) Acute pyelonephritis (5) HIV (human immunodeficiency virus infection) Assessment/Plan ASSESSMENT: * Febrile illness & sepsis, CAP/empyema + UTI with PN * Multilobar CAP with loculated L sided effusion/empyema S/P L VATS decortication 08/12/17, * GPC sepsis * GPC UTI with PN * Marked leukocytosis 2/2 above - IMPROVED * HIV with unknown CD4 count * Anemai, likely AoCD * [place] PLAN: * Pain control/supportive care * IS * Continue current antimicrobial therapy (ERTA) per ID * F/U final OR Path * Optimize pulmonary hygiene/mobilize as tolerated * PRN O2 to keep SaO2 > 90% * PRN HHN's * PRN Robitussin * cART per ID, F/U CD4 count and VL * DVT Px: Hep SQ * Dispo planning D/W RN @ bedside Subjective Allergies: Coded Allergies: No Known Allergies (Unverified , 07/01/16) Subjective POD 6, weekend events reviewed, CT out, AFVSS, leukocytosis resolved No SOB, no CP, decreased strong cough, no wheezing, no F/C Renate PO, no NV Objective Last 24 Hour Vital Signs Date Time Temp Pulse Resp B/P (MAP) Pulse Ox O2 Delivery O2 Flow Rate FiO2 08/18/17 08:00 97.7 89 23 126/65 94 Room Air 97.7 08/18/17 07:05 86 18 Room Air 08/18/17 04:00 Room Air 08/18/17 04:00 97.1 68 21 128/75 96 97.1 08/18/17 00:00 Room Air 08/18/17 00:00 99.5 86 20 131/83 99.5 08/17/17 21:06 98.0 Room Air 98.0 08/17/17 20:25 74 20 Room Air 08/17/17 20:00 Room Air 08/17/17 20:00 87 22 126/81 96 08/17/17 16:00 97.3 71 20 148/87 97 Room Air 97.3 08/17/17 12:00 97.6 69 19 120/68 95 Room Air 97.6 Intake and Output 3/25/18 3/26/18 19:00 07:00 Intake Total 1060.000 ml 250.000 ml Output Total 500 ml 900 ml Balance 560.000 ml -650.000 ml Intake Oral 700 ml IV Total 360.000 ml 250.000 ml Output Urine Total 500 ml 900 ml # Voids 3 General Appearance: WD/WN, no acute distress HEENT: normocephalic, atraumatic, mucous membranes moist Respiratory/Chest: chest wall non-tender, lungs clear, normal breath sounds, no respiratory distress Cardiovascular: normal peripheral pulses, normal rate, regular rhythm Abdomen: normal bowel sounds, soft, non tender, no organomegaly, non distended , no mass Extremities: no cyanosis, no clubbing, no edema Microbiology Date/Time Source Procedure Growth Status 08/17/17 04:50 Blood Blood Culture - Preliminary NO GROWTH AFTER 24 HOURS Resulted 08/17/17 04:40 Blood Blood Culture - Preliminary NO GROWTH AFTER 24 HOURS Resulted Current Medications Medications (Trade) Dose Ordered Sig/Bhavani Route PRN Reason Start Time Stop Time Status Last Admin Dose Admin Acetaminophen (Tylenol) 650 mg Q4H PRN ORAL Mild Pain (Pain Scale 1-2) 08/13/17 12:00 09/08/17 19:59 08/17/17 06:50 Acetaminophen/ Hydrocodone Bitart ([place] 10/325) 1 tab Q4H PRN ORAL For Pain Level 5-6 08/13/17 11:30 08/19/17 19:29 08/17/17 21:34 Acetaminophen/ Hydrocodone Bitart ([place] 5/325) 1 tab Q4H PRN ORAL Moderate Pain Scale 3-4 08/13/17 11:30 08/19/17 19:29 Dextrose (Dextrose 50%) STAT PRN IV Hypoglycemia 08/13/17 19:30 09/11/17 19:29 Docusate Sodium (Colace) 100 mg TWICE A DAY ORAL 08/13/17 18:00 09/11/17 20:59 08/18/17 09:06 Ertapenem 1 gm/ Sodium Chloride 110 ml @ 220 mls/hr Q24HRS IV 08/16/17 18:00 08/21/17 17:59 08/17/17 17:25 Heparin Sodium (Porcine) (Heparin 5000 units/ml) 5,000 units EVERY 12 HOURS SUBQ 08/13/17 21:00 09/11/17 20:59 08/18/17 09:08 Lansoprazole (Prevacid) 30 mg DAILYPRN PRN ORAL ACID REFLUX 08/17/17 13:45 09/16/17 13:44 08/17/17 17:30 Lorazepam (Ativan) 1 mg Q4H PRN ORAL For Anxiety 08/16/17 21:30 08/23/17 21:29 Morphine Sulfate (Morphine Sulfate) 2 mg Q4H PRN IVP Severe Pain (Pain Scale 7-10) 08/13/17 11:30 08/19/17 19:29 08/14/17 00:54 Nystatin (Nystatin) 5 ml TID ORAL 08/14/17 22:00 08/21/17 21:59 08/18/17 09:06 Ondansetron HCl (Zofran) 4 mg Q6H PRN IVP Nausea & Vomiting 08/13/17 13:30 09/11/17 19:29 Patient Own Medication (Patient's Own Med) 1 ea DAILY ORAL 08/18/17 09:00 09/17/17 08:59 ILENE UMAÑA M.D. Aug 18, 2017 09:22
[2017-08-18] MEDS: TRIUMEQ ORAL SCH (10:06)
[2017-08-18 12:00] VITALS: BP 123/71
--- NOTE | 2017-08-18 15:32 | Infectious Diseases Prog Note ---
Assessment/Plan Problems: (1) CAP (community acquired pneumonia) Assessment & Plan: complicated with loculated pleural effusion, and sepsis due to invasive pneumococcal pneumonia , continue ertapenem for strep pneumonia sepsis and left empyema with ESBL producing E. coli for two weeks total . S/P VATS and decortication of his left pleural space , CT surgery is following . monitor CXR (2) Pleural effusion on left Assessment & Plan: loculated, with empyema due to MDR E. coli , and invasive pneumococcal pneumonia infection of the lung , S/P VATS and decortication of the left pleural space with chest tube placement , pleural tissue culture from OR grew MDR E. coli , now on ertapenem for two weeks . CT surgery and dog obedience instructor are following . EOT 08/30/17 (3) Sepsis Assessment & Plan: due to the above, with invasive streptococcus pneumonia , continue vancomycin and cefepime , for now, pending repeated blood culture to confirm clearance, await 2D echo to rule out any vegetations (4) HIV (human immunodeficiency virus infection) Assessment & Plan: continue triumeq pending his viral load ad CD4 counts. follow up with HIV provider as an out patient Subjective Constitutional: Reports: no symptoms HEENT: Reports: no symptoms Respiratory: Reports: productive cough Breasts: Reports: no symptoms Cardiovascular: Reports: no symptoms Gastrointestinal/Abdominal: Reports: no symptoms Genitourinary: Reports: no symptoms Neurologic: Reports: no symptoms Psychiatric: Reports: no symptoms Skin: Reports: no symptoms Endocrine: Reports: no symptoms Hematologic: Reports: no symptoms Allergies: Coded Allergies: No Known Allergies (Unverified , 07/01/16) Subjective he was resting in bed, awake and alert, denied any fever or chills, had mild cough, but no phlegm Objective Vital Signs Last 24 Hour Vital Signs Date Time Temp Pulse Resp B/P (MAP) Pulse Ox O2 Delivery O2 Flow Rate FiO2 08/18/17 12:00 97.8 80 21 123/71 93 Room Air 97.8 08/18/17 08:00 97.7 89 23 126/65 94 Room Air 97.7 08/18/17 07:05 86 18 Room Air 08/18/17 04:00 Room Air 08/18/17 04:00 97.1 68 21 128/75 96 97.1 08/18/17 00:00 Room Air 08/18/17 00:00 99.5 86 20 131/83 99.5 08/17/17 21:06 98.0 Room Air 98.0 08/17/17 20:25 74 20 Room Air 08/17/17 20:00 Room Air 08/17/17 20:00 87 22 126/81 96 08/17/17 16:00 97.3 71 20 148/87 97 Room Air 97.3 Height (Feet): 5 Height (Inches): 8.00 Weight (Pounds): 157 General Appearance: WD/WN, no acute distress HEENT: normocephalic, atraumatic, anicteric, mucous membranes moist, PERRL Respiratory/Chest: chest wall non-tender, no respiratory distress, no accessory muscle use, decreased breath sounds, crackles/rales Cardiovascular: normal peripheral pulses, normal rate, regular rhythm, no gallop/murmur, no JVD Abdomen: normal bowel sounds, soft, non tender, no organomegaly, no scars Extremities: no cyanosis, no clubbing Skin: no rash, no lesions Neurologic/Psychiatric: alert, oriented x 3, responsive Lymphatic: no neck adenopathy, no groin adenopathy Musculoskeletal: normal muscle bulk, no effusion Microbiology Date/Time Source Procedure Growth Status 08/17/17 04:50 Blood Blood Culture - Preliminary NO GROWTH AFTER 24 HOURS Resulted 08/17/17 04:40 Blood Blood Culture - Preliminary NO GROWTH AFTER 24 HOURS Resulted Current Medications Medications (Trade) Dose Ordered Sig/Bhavani Route PRN Reason Start Time Stop Time Status Last Admin Dose Admin Acetaminophen (Tylenol) 650 mg Q4H PRN ORAL Mild Pain (Pain Scale 1-2) 08/13/17 12:00 09/08/17 19:59 08/17/17 06:50 Acetaminophen/ Hydrocodone Bitart ([place] 10/325) 1 tab Q4H PRN ORAL For Pain Level 5-6 08/13/17 11:30 08/19/17 19:29 08/17/17 21:34 Acetaminophen/ Hydrocodone Bitart ([place] 5/325) 1 tab Q4H PRN ORAL Moderate Pain Scale 3-4 08/13/17 11:30 08/19/17 19:29 Dextrose (Dextrose 50%) STAT PRN IV Hypoglycemia 08/13/17 19:30 09/11/17 19:29 Docusate Sodium (Colace) 100 mg TWICE A DAY ORAL 08/13/17 18:00 09/11/17 20:59 08/18/17 09:06 Ertapenem 1 gm/ Sodium Chloride 110 ml @ 220 mls/hr Q24HRS IV 08/16/17 18:00 08/21/17 17:59 08/17/17 17:25 Heparin Sodium (Porcine) (Heparin 5000 units/ml) 5,000 units EVERY 12 HOURS SUBQ 08/13/17 21:00 09/11/17 20:59 08/18/17 09:08 Lansoprazole (Prevacid) 30 mg DAILYPRN PRN ORAL ACID REFLUX 08/17/17 13:45 09/16/17 13:44 08/17/17 17:30 Lorazepam (Ativan) 1 mg Q4H PRN ORAL For Anxiety 08/16/17 21:30 08/23/17 21:29 Morphine Sulfate (Morphine Sulfate) 2 mg Q4H PRN IVP Severe Pain (Pain Scale 7-10) 08/13/17 11:30 08/19/17 19:29 08/14/17 00:54 Nystatin (Nystatin) 5 ml TID ORAL 08/14/17 22:00 08/21/17 21:59 08/18/17 14:06 Ondansetron HCl (Zofran) 4 mg Q6H PRN IVP Nausea & Vomiting 08/13/17 13:30 09/11/17 19:29 Patient Own Medication (Patient's Own Med) 1 ea DAILY ORAL 08/18/17 09:00 09/17/17 08:59 08/18/17 10:06 Marvin Bullock M.D. Aug 18, 2017 15:32
[2017-08-18 16:00] VITALS: BP 112/66
[2017-08-18] MEDS ORDERED: NS 500ML ONE (17:03)
[2017-08-18] MEDS ORDERED: Tubing IV Secondary IV ONE (17:03)
--- NOTE | 2017-08-18 17:10 | Cardiac Electrophysiology PN ---
Assessment/Plan Assessment/Plan 1. Pleural effusion. Likely due to pneumonia. On IV antibiotics S/P thoracoscopy and VATS and chest tube placement 08/12/[address] Alarcon. Echocardiogram EF 55%. ECG NSR with no ischemia. Chest tube removed yesterday 2. Human immunodeficiency virus. 3. Pyelonephritis, on IV antibiotics. 4. Difficulty hearing DW RN Subjective Subjective Chest tube removed yesterday. No event Objective Last 24 Hour Vital Signs Date Time Temp Pulse Resp B/P (MAP) Pulse Ox O2 Delivery O2 Flow Rate FiO2 08/18/17 12:00 97.8 80 21 123/71 93 Room Air 97.8 08/18/17 08:00 97.7 89 23 126/65 94 Room Air 97.7 08/18/17 07:05 86 18 Room Air 08/18/17 04:00 Room Air 08/18/17 04:00 97.1 68 21 128/75 96 97.1 08/18/17 00:00 Room Air 08/18/17 00:00 99.5 86 20 131/83 99.5 08/17/17 21:06 98.0 Room Air 98.0 08/17/17 20:25 74 20 Room Air 08/17/17 20:00 Room Air 08/17/17 20:00 87 22 126/81 96 Intake and Output 08/17/17 08/18/17 19:00 07:00 Intake Total 1060.000 ml 250.000 ml Output Total 500 ml 900 ml Balance 560.000 ml -650.000 ml Intake Oral 700 ml IV Total 360.000 ml 250.000 ml Output Urine Total 500 ml 900 ml # Voids 3 Microbiology Date/Time Source Procedure Growth Status 08/17/17 04:50 Blood Blood Culture - Preliminary NO GROWTH AFTER 24 HOURS Resulted 08/17/17 04:40 Blood Blood Culture - Preliminary NO GROWTH AFTER 24 HOURS Resulted Objective HEAD AND NECK: No JVD. LUNGS: Decreased breath sounds on left CARDIOVASCULAR: Regular S1 and S2 with no gallop or murmur. ABDOMEN: Soft. EXTREMITIES: No pitting edema. Yoandy Proctor MD Aug 18, 2017 17:10
[2017-08-18] MEDS: Ertapenem 1 GM in NS 110 ML IV SCH (17:21)
[2017-08-18 20:00] VITALS: BP 114/68
[2017-08-18] MEDS: HYDROcodone/Acetamin 10/325 tab ORAL PRN (23:11)
--- NOTE | 2017-08-18 23:55 | General Progress Note ---
Assessment/Plan Assessment/Plan 1. Anemia of chronic disease. --> Continue to closely monitor. Likely anemia is related to chronic disease. --> Blood transfusion not required unless symptomatic or hgb <7 --> Anemia workup reviewed. Iron 14, TIBC 116, Vit b12 476, Folate 11.4 --> Monitor and trend cbc --> No hematochezia 2. Leukocytosis, likely secondary to pneumonia. --> CT Surgery following in addition to decortication pending. --> Wbc count within normal levels at this time --> On antibiotics. 3. Pleural effusion, the patient is status post VATS, decortication and chest tube placement. 4. Sepsis secondary to streptococcus, on broad-spectrum antibiotics. --> Improving 5. Urinary tract infection. 6. Human immunodeficiency virus/Acquired immunodeficiency syndrome. Subjective Date patient seen: Aug 18, 2017 Constitutional: Denies: no symptoms, chills, diaphoresis, fever, malaise, weakness, other HEENT: Denies: no symptoms, eye pain, blurred vision, tearing, double vision, ear pain, ear discharge, nose pain, nose congestion, throat pain, throat swelling, mouth pain, mouth swelling, other Cardiovascular: Denies: no symptoms, chest pain, edema, irregular heart rate, lightheadedness, palpitations, syncope, other Respiratory: Denies: no symptoms, cough, orthopnea, shortness of breath, SOB with excertion, SOB at rest, sputum, stridor, wheezing, other Gastrointestinal/Abdominal: Denies: no symptoms, abdomen distended, abdominal pain, black stools, tarry stools, blood in stool, constipated, diarrhea, difficulty swallowing, nausea, poor appetite, poor fluid intake, rectal bleeding , vomiting, other Genitourinary: Denies: no symptoms, burning, discharge, frequency, flank pain, hematuria, incontinence, pain, urgency, other Neurologic/Psychiatric: Denies: no symptoms, anxiety, depressed, emotional problems, headache, numbness, paresthesia, pre-existing deficit, seizure, tingling, tremors, weakness, other Hematologic/Lymphatic: Reports: anemia Allergies: Coded Allergies: No Known Allergies (Unverified , 07/01/16) Subjective Pending placement. No acute distress. Afebrile. Objective Last 24 Hour Vital Signs Date Time Temp Pulse Resp B/P (MAP) Pulse Ox O2 Delivery O2 Flow Rate FiO2 08/18/17 20:00 98.5 80 20 114/68 96 98.5 08/18/17 16:00 98.3 78 22 112/66 96 Room Air 98.3 08/18/17 12:00 97.8 80 21 123/71 93 Room Air 97.8 08/18/17 08:00 97.7 89 23 126/65 94 Room Air 97.7 08/18/17 07:05 86 18 Room Air 08/18/17 04:00 Room Air 08/18/17 04:00 97.1 68 21 128/75 96 97.1 08/18/17 00:00 Room Air 08/18/17 00:00 99.5 86 20 131/83 99.5 Intake and Output 08/17/17 08/18/17 19:00 07:00 Intake Total 1060.000 ml 250.000 ml Output Total 500 ml 900 ml Balance 560.000 ml -650.000 ml Intake Oral 700 ml IV Total 360.000 ml 250.000 ml Output Urine Total 500 ml 900 ml # Voids 3 Height (Feet): 5 Height (Inches): 8.00 Weight (Pounds): 157 General Appearance: no apparent distress Respiratory/Chest: decreased breath sounds Abdomen: soft Wayne Ortiz MD Aug 18, 2017 23:55
[2017-08-19] VITALS: BP 115/67
[2017-08-19 08:00] VITALS: BP 123/76
[2017-08-19] MEDS: Docusate 100mg cap ORAL SCH (09:00)
[2017-08-19] MEDS: TRIUMEQ ORAL SCH (09:27)
[2017-08-19] MEDS: Nystatin Susp 500,000 units/5ml ORAL SCH ×2 (09:27→13:16)
[2017-08-19] MEDS: Heparin 5000 units/ml inj SUBQ SCH (09:28)
[2017-08-19 12:00] VITALS: BP 111/69
[2017-08-19] MEDS ORDERED: INVANZ1 GM IVPB (12:37)
[2017-08-19] MEDS ORDERED: NYSTATIN100000 UN1 ORAL (12:38)
[2017-08-19] MEDS ORDERED: COLACE100 MG ORAL (12:40)
[2017-08-19] MEDS ORDERED: HYDROCODON-ACE1 EA13 ORAL (12:41)
[2017-08-19] MEDS ORDERED: ATIVAN1 MG ORAL (12:42)
[2017-08-19] MEDS ORDERED: ZOFRAN4 M3 ORAL (13:17)
--- NOTE | 2017-08-19 13:32 | Pulmonology Progress Note ---
Assessment/Plan Problems: (1) CAP (community acquired pneumonia) (2) Pleural effusion on left Assessment & Plan: LOCULATED, likely para-pneumonic vs empyema (3) Sepsis (4) Acute pyelonephritis (5) HIV (human immunodeficiency virus infection) Assessment/Plan ASSESSMENT: * Febrile illness & sepsis, CAP/empyema + UTI with PN * Multilobar CAP with loculated L sided effusion/empyema S/P L VATS decortication 08/12/17, * GPC sepsis * GPC UTI with PN * Marked leukocytosis 2/2 above - IMPROVED * HIV with unknown CD4 count * Anemai, likely AoCD * [place] PLAN: * Pain control/supportive care * IS * Continue current antimicrobial therapy (ERTA) per ID * Optimize pulmonary hygiene/mobilize as tolerated * PRN O2 to keep SaO2 > 90% * PRN HHN's * PRN Robitussin * cART per ID * DVT Px: Hep SQ * Dispo planning, stable from a pulmonary standpoint, can F/U with me in 1-2 weeks or earlier PRN D/W RN @ bedside Subjective Allergies: Coded Allergies: No Known Allergies (Unverified , 07/01/16) Subjective POD 7, doing well, AFVSS, stable on RA No cough, no SOB, no F/C Objective Last 24 Hour Vital Signs Date Time Temp Pulse Resp B/P (MAP) Pulse Ox O2 Delivery O2 Flow Rate FiO2 08/19/17 12:00 97.2 69 18 111/69 97 Room Air 97.2 08/19/17 08:00 97.9 81 19 123/76 94 Room Air 97.9 08/19/17 00:00 98.0 73 18 115/67 96 98.0 08/18/17 20:00 Room Air 08/18/17 20:00 98.5 80 20 114/68 96 98.5 08/18/17 16:00 98.3 78 22 112/66 96 Room Air 98.3 Intake and Output 08/18/17 08/19/17 19:00 07:00 Intake Total 590 ml Output Total 750 ml Balance 590 ml -750 ml Intake Oral 480 ml IV Total 110 ml Output Urine Total 750 ml # Voids 3 General Appearance: WD/WN, no acute distress HEENT: normocephalic, atraumatic, anicteric, mucous membranes moist Respiratory/Chest: chest wall non-tender, lungs clear, normal breath sounds, no respiratory distress Cardiovascular: normal peripheral pulses, normal rate, regular rhythm Abdomen: normal bowel sounds, soft, non tender, no organomegaly, non distended Extremities: no cyanosis, no clubbing, no edema Microbiology Date/Time Source Procedure Growth Status 08/17/17 04:50 Blood Blood Culture - Preliminary NO GROWTH AFTER 48 HOURS Resulted 08/17/17 04:40 Blood Blood Culture - Preliminary NO GROWTH AFTER 48 HOURS Resulted Current Medications Medications (Trade) Dose Ordered Sig/Bhavani Route PRN Reason Start Time Stop Time Status Last Admin Dose Admin Acetaminophen (Tylenol) 650 mg Q4H PRN ORAL Mild Pain (Pain Scale 1-2) 08/13/17 12:00 09/08/17 19:59 08/17/17 06:50 Acetaminophen/ Hydrocodone Bitart ([place] 10/325) 1 tab Q4H PRN ORAL For Pain Level 5-6 08/13/17 11:30 08/19/17 19:29 08/18/17 23:11 Acetaminophen/ Hydrocodone Bitart ([place] 5/325) 1 tab Q4H PRN ORAL Moderate Pain Scale 3-4 08/13/17 11:30 08/19/17 19:29 Dextrose (Dextrose 50%) STAT PRN IV Hypoglycemia 08/13/17 19:30 09/11/17 19:29 Docusate Sodium (Colace) 100 mg TWICE A DAY ORAL 08/13/17 18:00 09/11/17 20:59 08/18/17 17:21 Ertapenem 1 gm/ Sodium Chloride 110 ml @ 220 mls/hr Q24HRS IV 08/16/17 18:00 08/29/17 19:00 08/18/17 17:21 Heparin Sodium (Porcine) (Heparin 5000 units/ml) 5,000 units EVERY 12 HOURS SUBQ 08/13/17 21:00 09/11/17 20:59 08/19/17 09:28 Lansoprazole (Prevacid) 30 mg DAILYPRN PRN ORAL ACID REFLUX 08/17/17 13:45 09/16/17 13:44 08/18/17 23:14 Lorazepam (Ativan) 1 mg Q4H PRN ORAL For Anxiety 08/16/17 21:30 3/31/18 21:29 Morphine Sulfate (Morphine Sulfate) 2 mg Q4H PRN IVP Severe Pain (Pain Scale 7-10) 08/13/17 11:30 08/19/17 19:29 08/14/17 00:54 Nystatin (Nystatin) 5 ml TID ORAL 08/14/17 22:00 08/21/17 21:59 08/19/17 13:16 Ondansetron HCl (Zofran) 4 mg Q6H PRN IVP Nausea & Vomiting 08/13/17 13:30 09/11/17 19:29 Patient Own Medication (Patient's Own Med) 1 ea DAILY ORAL 08/18/17 09:00 09/17/17 08:59 08/19/17 09:27 ILENE UMAÑA M.D. Aug 19, 2017 13:31
--- NOTE | 2017-08-19 14:23 | Infectious Diseases Prog Note ---
Assessment/Plan Problems: (1) CAP (community acquired pneumonia) Assessment & Plan: complicated with loculated pleural effusion, and sepsis due to invasive pneumococcal pneumonia , continue ertapenem for strep pneumonia sepsis and left empyema with ESBL producing E. coli for two weeks total . S/P VATS and decortication of his left pleural space , CT surgery is following . monitor CXR (2) Pleural effusion on left Assessment & Plan: loculated, with empyema due to MDR E. coli , and invasive pneumococcal pneumonia infection of the lung , S/P VATS and decortication of the left pleural space with chest tube placement , pleural tissue culture from OR grew MDR E. coli , continue ertapenem for two weeks total and follow up with CT surgery and software educator . EOT 08/30/17 (3) Sepsis Assessment & Plan: due to the above, with invasive streptococcus pneumonia , continue vancomycin and cefepime , for now, pending repeated blood culture to confirm clearance, await 2D echo to rule out any vegetations (4) HIV (human immunodeficiency virus infection) Assessment & Plan: continue triumeq pending his viral load ad CD4 counts. follow up with HIV provider as an out patient Subjective Constitutional: Reports: no symptoms HEENT: Reports: no symptoms Respiratory: Reports: no symptoms Breasts: Reports: no symptoms Cardiovascular: Reports: no symptoms Gastrointestinal/Abdominal: Reports: no symptoms Genitourinary: Reports: no symptoms Neurologic: Reports: no symptoms Psychiatric: Reports: no symptoms Skin: Reports: no symptoms Endocrine: Reports: no symptoms Hematologic: Reports: no symptoms Musculoskeletal: Reports: no symptoms Allergies: Coded Allergies: No Known Allergies (Unverified , 07/01/16) Subjective he was upset and wants to leave AMA, I tried to convince him to stay to complete his course of antibiotics treatment , but refused. all risks and benefits of antibiotics were explained to patient and he understood, and refused to get more treatment and antibiotics Objective Vital Signs Last 24 Hour Vital Signs Date Time Temp Pulse Resp B/P (MAP) Pulse Ox O2 Delivery O2 Flow Rate FiO2 08/19/17 12:00 97.2 69 18 111/69 97 Room Air 97.2 08/19/17 08:00 97.9 81 19 123/76 94 Room Air 97.9 08/19/17 00:00 98.0 73 18 115/67 96 98.0 08/18/17 20:00 Room Air 08/18/17 20:00 98.5 80 20 114/68 96 98.5 08/18/17 16:00 98.3 78 22 112/66 96 Room Air 98.3 Height (Feet): 5 Height (Inches): 8.00 Weight (Pounds): 157 General Appearance: WD/WN, no acute distress HEENT: normocephalic, atraumatic, anicteric, mucous membranes moist, PERRL Respiratory/Chest: chest wall non-tender, normal breath sounds, no respiratory distress, no accessory muscle use, decreased breath sounds Cardiovascular: normal peripheral pulses, normal rate, regular rhythm, no gallop/murmur, no JVD Abdomen: normal bowel sounds, soft, non tender, no organomegaly, non distended , no mass, no scars Extremities: no cyanosis, no clubbing Skin: no rash, no lesions, no ulcers Neurologic/Psychiatric: alert, oriented x 3, responsive Lymphatic: no neck adenopathy, no groin adenopathy Microbiology Date/Time Source Procedure Growth Status 08/17/17 04:50 Blood Blood Culture - Preliminary NO GROWTH AFTER 48 HOURS Resulted 08/17/17 04:40 Blood Blood Culture - Preliminary NO GROWTH AFTER 48 HOURS Resulted Current Medications Medications (Trade) Dose Ordered Sig/Bhavani Route PRN Reason Start Time Stop Time Status Last Admin Dose Admin Acetaminophen (Tylenol) 650 mg Q4H PRN ORAL Mild Pain (Pain Scale 1-2) 08/13/17 12:00 09/08/17 19:59 08/17/17 06:50 Acetaminophen/ Hydrocodone Bitart (Colo 10/325) 1 tab Q4H PRN ORAL For Pain Level 5-6 08/13/17 11:30 08/19/17 19:29 08/18/17 23:11 Acetaminophen/ Hydrocodone Bitart (Colo 5/325) 1 tab Q4H PRN ORAL Moderate Pain Scale 3-4 08/13/17 11:30 08/19/17 19:29 Dextrose (Dextrose 50%) STAT PRN IV Hypoglycemia 08/13/17 19:30 09/11/17 19:29 Docusate Sodium (Colace) 100 mg TWICE A DAY ORAL 08/13/17 18:00 09/11/17 20:59 08/18/17 17:21 Ertapenem 1 gm/ Sodium Chloride 110 ml @ 220 mls/hr Q24HRS IV 08/16/17 18:00 08/29/17 19:00 08/18/17 17:21 Heparin Sodium (Porcine) (Heparin 5000 units/ml) 5,000 units EVERY 12 HOURS SUBQ 08/13/17 21:00 09/11/17 20:59 08/19/17 09:28 Lansoprazole (Prevacid) 30 mg DAILYPRN PRN ORAL ACID REFLUX 08/17/17 13:45 09/16/17 13:44 08/18/17 23:14 Lorazepam (Ativan) 1 mg Q4H PRN ORAL For Anxiety 08/16/17 21:30 08/23/17 21:29 Morphine Sulfate (Morphine Sulfate) 2 mg Q4H PRN IVP Severe Pain (Pain Scale 7-10) 08/13/17 11:30 08/19/17 19:29 08/14/17 00:54 Nystatin (Nystatin) 5 ml TID ORAL 08/14/17 22:00 08/21/17 21:59 08/19/17 13:16 Ondansetron HCl (Zofran) 4 mg Q6H PRN IVP Nausea & Vomiting 08/13/17 13:30 09/11/17 19:29 Patient Own Medication (Patient's Own Med) 1 ea DAILY ORAL 08/18/17 09:00 09/17/17 08:59 08/19/17 09:27 Marvin Bullock M.D. Aug 19, 2017 14:23
[2017-08-19] MEDS ORDERED: Tubing IV Secondary IV ONE (15:37)
[2017-08-19] MEDS ORDERED: NS 275ml ONE (15:37)
--- NOTE | 2017-08-19 17:01 | Cardiac Electrophysiology PN ---
Assessment/Plan Assessment/Plan 1. Pleural effusion. Likely due to pneumonia. On IV antibiotics S/P thoracoscopy and VATS and chest tube placement 08/12/[address] Alarcon. Echocardiogram EF 55%. ECG NSR with no ischemia. Chest tube removed 2. Human immunodeficiency virus. 3. Pyelonephritis, on antibiotics. 4. Difficulty hearing DC planning today Subjective Subjective No event. DC planning in progress Objective Last 24 Hour Vital Signs Date Time Temp Pulse Resp B/P (MAP) Pulse Ox O2 Delivery O2 Flow Rate FiO2 08/19/17 12:00 97.2 69 18 111/69 97 Room Air 97.2 08/19/17 08:00 97.9 81 19 123/76 94 Room Air 97.9 08/19/17 00:00 98.0 73 18 115/67 96 98.0 08/18/17 20:00 Room Air 08/18/17 20:00 98.5 80 20 114/68 96 98.5 Intake and Output 08/18/17 08/19/17 19:00 07:00 Intake Total 590 ml Output Total 750 ml Balance 590 ml -750 ml Intake Oral 480 ml IV Total 110 ml Output Urine Total 750 ml # Voids 3 Microbiology Date/Time Source Procedure Growth Status 08/17/17 04:50 Blood Blood Culture - Preliminary NO GROWTH AFTER 48 HOURS Resulted 08/17/17 04:40 Blood Blood Culture - Preliminary NO GROWTH AFTER 48 HOURS Resulted Objective HEAD AND NECK: No JVD. LUNGS: Decreased breath sounds on left CARDIOVASCULAR: Regular S1 and S2 with no gallop or murmur. ABDOMEN: Soft. EXTREMITIES: No pitting edema. Yoandy Proctor MD Aug 19, 2017 17:01
--- NOTE | 2017-08-19 18:41 | Discharge Summary ---
Discharge Summary Hospital Course Date of Admission Aug 08, 2017 at 20:55 Date of Discharge Aug 19, 2017 at 15:38 Admitting Diagnosis pyelonephritis HPI Betito Peralta Jr is a 57 year old male who was admitted on Aug 08, 2017 at 20 :55 for Pyelonephritis Hospital Course [id number] Discharge Discharge Disposition Patient left Amparo Mireles NP Aug 19, 2017 18:41
[2017-08-20] MEDS ORDERED: Tubing IV Secondary IV ONE (08:00)
--- NOTE | 2017-08-20 16:15 | Discharge Summary 2 SIG ---
DATE OF ADMISSION: 08/08/2017 DATE OF DISCHARGE: 08/19/2017 CONSULTANTS: 1. Yoadny Proctor M.D. 2. Marvin Bullock M.D. 3. Harry Alarcon M.D. 4. Wayne Ortiz M.D. 5. Santana Sanders M.D. 6. Bk Avelar M.D. BRIEF HOSPITAL COURSE: The patient is a 57-year-old male with history of HIV presented to ED complaining of flu-like symptoms and fever. He reported myalgia, nonproductive cough, and dry mouth for the past few days. He denied hemoptysis, but has chest wall and abdominal wall pain every time he coughs, but not at rest. On evaluation at ED, chest x-ray showed left basilar consolidation and effusion. There was opacification and layering of small left pleural effusion. CT of the abdomen and pelvis showed a dense left basilar consolidation with left-sided pleural effusion which was partially loculated. He was admitted for evaluation of possible community-acquired pneumonia with pleural effusion complicated by HIV. He also had urinary tract infection with possible pyelonephritis. He was placed initially on cefepime. Blood culture was growing gram-positive cocci and vancomycin was added. The patient was afebrile and with community-acquired pneumonia and loculated effusion. CT of the chest showed a moderate sized multiloculated left pleural effusion. He underwent thoracentesis on the left chest on 08/09/2017, yielding 20 mL of fluid. He was continued on antibiotics and azithromycin was added. On 08/12/2017, he underwent VATS with decortication by Dr. Sanders. The chest tube was placed. He had an echocardiogram done that showed EF of 55%. EKG was in normal sinus rhythm and no evidence of ischemia. Pleural tissue culture showed MDRE coli. The patient will need ertapenem for two weeks. Chest tube was eventually discontinued on 08/17/2017. The patient was for discharge planning and was referred to skilled nursing to continue antibiotic treatment. However, the patient refused to be placed in facility and left AMA. FINAL DIAGNOSES: 1. Sepsis. 2. Community-acquired pneumonia. 3. Loculated pleural effusion, status post thoracentesis. 4. Acute pyelonephritis. 5. Human immunodeficiency virus. 6. Anemia of chronic disease. 7. Status post video assisted thoracoscopic and decortication, 08/12/2017. DISPOSITION: The patient left AMA. Remy Thurman M.D. I have been assigned to dictate discharge summary on this account and I was not involved in the patient's management. Amparo Hdez N.P. DR: KIARA JOB#: [id number] CC:
--- NOTE | 2017-08-20 18:38 | Nephrology Progress Note ---
Assessment/Plan Problem List: (1) CAP (community acquired pneumonia) (2) Pleural effusion on left (3) HIV (human immunodeficiency virus infection) (4) Sepsis Assessment: GPC in blood. (5) UTI (urinary tract infection) Plan Abx per ID. Follow up cx's. S/p VATS. f/u recs per CTS. Pulm and cardio following. d/c planning. Subjective Subjective late entry for 08/19 - pending discharge. No fever. DOing well. Objective Objective Height (Feet): 5 Height (Inches): 8.00 Weight (Pounds): 157 General Appearance: no apparent distress Cardiovascular: normal rate, regular rhythm Respiratory/Chest: lungs clear Abdomen: non tender, soft CASTRO VAUGHAN Aug 20, 2017 18:38
--- NOTE | 2017-08-20 22:51 | General Progress Note ---
Assessment/Plan Assessment/Plan #. Anemia of chronic disease. --> Continue to closely monitor. Likely anemia is related to chronic disease. --> Blood transfusion not required unless symptomatic or hgb <7 --> Anemia workup reviewed. Iron 14, TIBC 116, Vit b12 476, Folate 11.4 --> Monitor and trend cbc --> No hematochezia #. Leukocytosis, likely secondary to pneumonia. --> CT Surgery following in addition to decortication. --> Wbc count within normal levels at this time. Resolved. --> On antibiotics. #. Pleural effusion, the patient is status post VATS, decortication and chest tube placement. #. Sepsis secondary to streptococcus, on broad-spectrum antibiotics. --> Improving #. Urinary tract infection. #. Human immunodeficiency virus/Acquired immunodeficiency syndrome. Subjective Date patient seen: Aug 19, 2017 Constitutional: Denies: no symptoms, chills, diaphoresis, fever, malaise, weakness, other HEENT: Denies: no symptoms, eye pain, blurred vision, tearing, double vision, ear pain, ear discharge, nose pain, nose congestion, throat pain, throat swelling, mouth pain, mouth swelling, other Cardiovascular: Denies: no symptoms, chest pain, edema, irregular heart rate, lightheadedness, palpitations, syncope, other Respiratory: Denies: no symptoms, cough, orthopnea, shortness of breath, SOB with excertion, SOB at rest, sputum, stridor, wheezing, other Gastrointestinal/Abdominal: Denies: no symptoms, abdomen distended, abdominal pain, black stools, tarry stools, blood in stool, constipated, diarrhea, difficulty swallowing, nausea, poor appetite, poor fluid intake, rectal bleeding , vomiting, other Genitourinary: Denies: no symptoms, burning, discharge, frequency, flank pain, hematuria, incontinence, pain, urgency, other Neurologic/Psychiatric: Denies: no symptoms, anxiety, depressed, emotional problems, headache, numbness, paresthesia, pre-existing deficit, seizure, tingling, tremors, weakness, other Hematologic/Lymphatic: Reports: anemia Allergies: Coded Allergies: No Known Allergies (Unverified , 07/01/16) Subjective Pending placement. H/H stable. NAD. Objective Height (Feet): 5 Height (Inches): 8.00 Weight (Pounds): 157 General Appearance: no apparent distress Respiratory/Chest: lungs clear Abdomen: soft Wayne Ortiz MD Aug 20, 2017 22:51
--- NOTE | 2017-08-20 22:53 | General Progress Note ---
Assessment/Plan Assessment/Plan #. Anemia of chronic disease. --> Continue to closely monitor. Likely anemia is related to chronic disease. --> Blood transfusion not required unless symptomatic or hgb <7 --> Anemia workup reviewed. Iron 14, TIBC 116, Vit b12 476, Folate 11.4 --> Monitor and trend cbc --> Blood transfusion not required at this time. --> No hematochezia #. Leukocytosis, likely secondary to pneumonia. --> CT Surgery following in addition to decortication. --> Wbc count within normal levels at this time. Resolved. --> On antibiotics. #. Pleural effusion, the patient is status post VATS, decortication and chest tube placement. #. Sepsis secondary to streptococcus, on broad-spectrum antibiotics. --> Improving #. Urinary tract infection. #. Human immunodeficiency virus/Acquired immunodeficiency syndrome. Subjective Date patient seen: Aug 20, 2017 Constitutional: Denies: no symptoms, chills, diaphoresis, fever, malaise, weakness, other HEENT: Denies: no symptoms, eye pain, blurred vision, tearing, double vision, ear pain, ear discharge, nose pain, nose congestion, throat pain, throat swelling, mouth pain, mouth swelling, other Cardiovascular: Denies: no symptoms, chest pain, edema, irregular heart rate, lightheadedness, palpitations, syncope, other Respiratory: Denies: no symptoms, cough, orthopnea, shortness of breath, SOB with excertion, SOB at rest, sputum, stridor, wheezing, other Gastrointestinal/Abdominal: Denies: no symptoms, abdomen distended, abdominal pain, black stools, tarry stools, blood in stool, constipated, diarrhea, difficulty swallowing, nausea, poor appetite, poor fluid intake, rectal bleeding , vomiting, other Genitourinary: Denies: no symptoms, burning, discharge, frequency, flank pain, hematuria, incontinence, pain, urgency, other Neurologic/Psychiatric: Denies: no symptoms, anxiety, depressed, emotional problems, headache, numbness, paresthesia, pre-existing deficit, seizure, tingling, tremors, weakness, other Hematologic/Lymphatic: Reports: anemia Allergies: Coded Allergies: No Known Allergies (Unverified , 07/01/16) Subjective Pending discharge. H/H stable. No fever or chills. Objective Height (Feet): 5 Height (Inches): 8.00 Weight (Pounds): 157 General Appearance: no apparent distress Respiratory/Chest: lungs clear Abdomen: soft Wayne Ortiz MD Aug 20, 2017 22:53
== END 2017-08-19 15:38 | disposition left against medical advice (07) | DRG 853 ==
LOC: EMR 18:00 → 3E 20:55 → EDBEDREQ 21:08 → 3E 22:30 → ICU 08-12 16:12 → 3E 08-13 11:55 → 4E 08-16 18:27
DX: A40.3 Sepsis due to Streptococcus pneumoniae (principal); B20 Human immunodeficiency virus [HIV] disease; J86.9 Pyothorax without fistula; J13 Pneumonia due to Streptococcus pneumoniae; J91.8 Pleural effusion in other conditions classified elsewhere; N10 Acute pyelonephritis; J95.812 Postprocedural air leak; B96.20 Unspecified Escherichia coli [E. coli] as the cause of diseases classified elsewhere
CPT/HCPCS: 36415; 71045; 71250; 74176; 76942; 80048; 80053; 80061; 80202; 81003; 82247; 82248; 82270; 82330; 82553; 82607; 82728; 82746; 83010; 83540; 83550; 83605; 83615; 83690; 83735; 83921; 84100; 84238; 84439; 84443; 84484; 85007; 85025; 85044; 85060; 85384; 85610; 85730; 86710; 86850; 86900; 86901; 86920; 87040; 87070; 87075; 87086; 87116; 87181; 87205; 87324; 88104; 89051; 93005; 93306; 94003; 94150; 94664; 99285; J8499